=== PATIENT | male | born 1960 | race Caucasian/White ===

== ENCOUNTER → 2016-11-05 | Outpatient (CLI) | payer OTHER | LOC: MW.LAB 08:54 | PROVIDERS: ATTEND Family Medicine | DX: E78.5 Hyperlipidemia, unspecified (principal) | CPT/HCPCS: 36415; 80061 ==

== ENCOUNTER 2017-01-31 11:28 | Inpatient (IN) | payer OTHER ==
[2017-01-31] MEDS ORDERED: Albuterol/Ipratropium 3.0-0.5 MG/3 ML Neb Soln NEB ONE (11:43)
--- NOTE | 2017-01-31 11:55 | EDM.PDOC ---
ED HPI GENERAL MEDICAL PROBLEM - General Chief Complaint: Respiratory Problem Stated Complaint: SHORTNESS OF BREATH Time Seen by Provider: 01/31/17 11:39 - History of Present Illness INITIAL COMMENTS - FREE TEXT/NARRATIVE: HISTORY AND PHYSICAL: History of present illness: Patient 56-year-old male history multiple myeloma who also has had stem cell transplant with chronic shortness of breath who presents with a concern of worsening shortness of breath and peripheral edema he denies fever chills nausea vomiting. Review of systems: As per history of present illness and below otherwise all systems reviewed and negative. Past medical history: As per history of present illness and as reviewed below otherwise noncontributory. Surgical history: As per history of present illness and as reviewed below otherwise noncontributory. Social history: No reported history of drug or alcohol abuse. Family history: As per history of present illness and as reviewed below otherwise noncontributory. Physical exam: HEENT: Atraumatic, normocephalic, pupils reactive, negative for conjunctival pallor or scleral icterus, mucous membranes moist, throat clear, neck supple, nontender, trachea midline. Lungs: Slightly coarse markedly diminished, breath sounds equal bilaterally, chest nontender. Heart: S1S2, regular, negative for clicks, rubs, or JVD. Abdomen: Soft, nondistended, nontender. Negative for masses or hepatosplenomegaly. Negative for costovertebral tenderness. Pelvis: Stable nontender. Genitourinary: Deferred. Rectal: Deferred. Extremities: Atraumatic, negative for cords or calf pain. Neurovascular unremarkable. Neuro: Awake, alert, oriented. Cranial nerves II through XII unremarkable. Cerebellum unremarkable. Motor and sensory unremarkable throughout. Exam nonfocal. Diagnostics: CBC CMP troponin d-dimer PT/INR BMP chest x-ray blood culture 2 lactic acid Therapeutics: IV O2 monitor ipratropium albuterol nebulizer Impression: #1 dyspnea #2 history of chronic lung disease #3 history multiple myeloma #4 history of stem cell transplant Definitive disposition and diagnosis as appropriate pending reevaluation and review of above. - Related Data Allergies Allergy/AdvReac Type Severity Reaction Status Date / Time No Known Allergies Allergy Verified 01/31/17 11:33 Home Meds: Home Meds Acyclovir [Zovirax] 800 mg PO BID 10/08/15 [History] Pomalidomide [Pomalyst] 2 mg PO BEDTIME 10/15/16 [History] Cholecalciferol (Vitamin D3) [Vitamin D3] 5,000 unit PO DAILY 07/01/16 [History] Dexamethasone 40 mg PO TH@2100 07/01/16 [History] Fluticasone/Salmeterol [Advair 250-50 Diskus] 1 inh IH BID 07/01/16 [History] Rosuvastatin Calcium 20 mg PO BEDTIME 07/01/16 [History] Ubidecarenone [Coq-10] 200 mg PO DAILY 07/01/16 [History] Aspirin [Ecotrin] 325 mg PO BEDTIME 07/02/16 [History] Albuterol/Ipratropium [DuoNeb 3.0-0.5 MG/3 ML] 3 ml NEB Q4HRRT PRN #100 ampule 07/04/16 [Rx] Dextromethorphan/guaiFENesin [Robitussin DM] 10 ml PO Q6H PRN #200 ml 07/04/16 [ Rx] Erythromycin Base [Erythromycin 0.5% Ophth Oint] 1 applic OP Q4H #2 tube [Rx] Past Medical History Cardiovascular History: Reports: High Cholesterol Other Respiratory History: "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" Hematologic History: Reports: None Immunologic History: 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 Transplant Oncologic (Cancer) History: Reports: Malignant Melanoma - Past Surgical History Musculoskeletal Surgical History: Reports: Hip Replacement, Other (See Below) Social & Family History - Family History Family Medical History: Noncontributory - Tobacco Use Smoking Status *Q: Never Smoker Years of Tobacco use: 20 Used Tobacco, but Quit: Yes Month Tobacco Last Used: 07/2001 Second Hand Smoke Exposure: No - Caffeine Use Caffeine Use: Reports: Other - Alcohol Use Days Per Week of Alcohol Use: 7 Number of Drinks Per Day: 2 Total Drinks Per Week: 14 - Recreational Drug Use Recreational Drug Use: No ED ROS GENERAL - Review of Systems Review Of Systems: ROS reveals no pertinent complaints other than HPI. ED EXAM, GENERAL - Physical Exam Exam: See Below (See dictation) Course - Vital Signs Last Recorded V/S: Last Vital Signs Temp 37.8 C 02/01/17 04:00 Pulse 82 02/01/17 04:00 Resp 20 02/01/17 04:00 BP 138/55 L 02/01/17 04:00 Pulse Ox 96 02/01/17 04:00 - Orders/Labs/Meds Orders: Active Orders 24 hr Category Date Time Status Cardiac Monitoring [RC] Q8H Care 01/31/17 11:33 Active EKG Documentation Completion [RC] STAT Care 01/31/17 11:33 Active RT Aerosol Therapy [RC] ASDIRECTED Care 01/31/17 11:43 Active Chest 2V [CR] Stat Exams 01/31/17 11:42 Taken Chest PE [Ang Chest] [CT] Stat Exams 01/31/17 12:50 Taken CULTURE BLOOD [BC] Stat Lab 01/31/17 11:50 Received CULTURE BLOOD [BC] Stat Lab 01/31/17 12:46 Received Medication Orders Acyclovir (Zovirax) 800 mg PO BID [facility] Last Admin: 01/31/17 20:02 Dose: 800 mg Albuterol/Ipratropium (Duoneb 3.0-0.5 Mg/3 Ml) 3 ml NEB Q4HRRT PRN PRN Reason: sob/wheezing Enoxaparin Sodium (Lovenox) 40 mg SUBCUT DAILY@1900 [facility] Last Admin: 01/31/17 18:18 Dose: 40 mg Levofloxacin/Dextrose 750 mg/ (Premix) 150 mls @ 100 mls/hr IV Q24H [facility] Piperacillin Sod/Tazobactam (Sod 4.5 gm/ Sodium Chloride) 100 mls @ 100 mls/hr IV Q6H [facility] Last Admin: 02/01/17 05:17 Dose: 100 mls/hr Infusion: 02/01/17 00:53 Dose: 100 mls/hr Admin: 01/31/17 23:53 Dose: 100 mls/hr Infusion: 01/31/17 19:18 Dose: 100 mls/hr Admin: 01/31/17 18:18 Dose: 100 mls/hr Vancomycin HCl 2 gm/ Sodium (Chloride) 500 mls @ 333.333 mls/hr IV Q24H [facility] Ondansetron HCl (Zofran) 4 mg IVPUSH Q4H PRN PRN Reason: Nausea Last Admin: 01/31/17 19:44 Dose: 4 mg Fluticasone/Salmeterol (Advair Diskus 250-50) 1 puff INH BID [facility] Last Admin: 01/31/17 21:55 Dose: 1 puff Sodium Chloride (Saline Flush) 2.5 ml FLUSH ASDIRECTED PRN PRN Reason: Keep Vein Open Vancomycin HCl (Pharmacy To Dose - Vancomycin) 1 dose .XX ASDIRECTED [facility] Labs: Laboratory Tests 01/31/17 01/31/17 01/31/17 Range/Units 11:39 11:39 11:39 WBC 10.01 (4.0-11.0) K/uL RBC 3.55 L (4.50-5.90) M/uL Hgb 10.8 L (13.0-17.0) g/dL Hct 34.6 L (38.0-50.0) % MCV 97.5 (80.0-98.0) fL MCH 30.4 (27.0-32.0) pg MCHC 31.2 (31.0-37.0) g/dL RDW Std Deviation 69.8 H (28.0-62.0) fl RDW Coeff of Christiano 20 H (11.0-15.0) % Plt Count 193 (150-400) K/uL MPV 10.10 (7.40-12.00) fL Add Manual Diff YES Neutrophils % (Manual) 47 L (48.0-80.0) % Lymphocytes % (Manual) 33 (16.0-40.0) % Monocytes % (Manual) 18 H (0.0-15.0) % Eosinophils % (Manual) 2 (0.0-7.0) % Nucleated RBC % 0.2 /100WBC Absolute Seg Neuts 4.7 Lymphocytes # (Manual) 3.3 Monocytes # (Manual) 1.8 Eosinophils # (Manual) 0.2 Nucleated RBCs # 0 K/uL INR 1.03 (0.86-1.11) D-Dimer, Quantitative (0.0-0.52) mg/LFEU Lactate (0.20-2.00) mmol/L Sodium 141 (136-146) mmol/L Potassium 4.2 (3.5-5.1) mmol/L Chloride 109 (98-110) mmol/L Carbon Dioxide 21 (21-31) mmol/L BUN 5 L (6.0-23.0) mg/dL Creatinine 0.8 (0.6-1.5) mg/dL Est Cr Clr Drug Dosing 126.16 mL/min Estimated GFR (MDRD) > 60.0 ml/min Glucose 95 (60-110) mg/dL Calcium 9.4 (8.8-10.8) mg/dL Total Bilirubin 0.8 (0.1-1.5) mg/dL AST 29 (5-40) IU/L ALT 21 (8-54) IU/L Alkaline Phosphatase 76 (40-150) Troponin I (0.0-0.29) NG/ML B-Natriuretic Peptide (<100) PG/ML Total Protein 6.6 (6.0-8.0) g/dL Albumin 3.6 (3.5-5.0) g/dL Globulin 3.0 (2.0-3.5) g/dL Albumin/Globulin Ratio 1.2 L (1.3-2.8) 01/31/17 01/31/17 01/31/17 Range/Units 11:39 11:39 11:39 WBC (4.0-11.0) K/uL RBC (4.50-5.90) M/uL Hgb (13.0-17.0) g/dL Hct (38.0-50.0) % MCV (80.0-98.0) fL MCH (27.0-32.0) pg MCHC (31.0-37.0) g/dL RDW Std Deviation (28.0-62.0) fl RDW Coeff of Christiano (11.0-15.0) % Plt Count (150-400) K/uL MPV (7.40-12.00) fL Add Manual Diff Neutrophils % (Manual) (48.0-80.0) % Lymphocytes % (Manual) (16.0-40.0) % Monocytes % (Manual) (0.0-15.0) % Eosinophils % (Manual) (0.0-7.0) % Nucleated RBC % /100WBC Absolute Seg Neuts Lymphocytes # (Manual) Monocytes # (Manual) Eosinophils # (Manual) Nucleated RBCs # K/uL INR (0.86-1.11) D-Dimer, Quantitative 2.05 H (0.0-0.52) mg/LFEU Lactate (0.20-2.00) mmol/L Sodium (136-146) mmol/L Potassium (3.5-5.1) mmol/L Chloride (98-110) mmol/L Carbon Dioxide (21-31) mmol/L BUN (6.0-23.0) mg/dL Creatinine (0.6-1.5) mg/dL Est Cr Clr Drug Dosing mL/min Estimated GFR (MDRD) ml/min Glucose (60-110) mg/dL Calcium (8.8-10.8) mg/dL Total Bilirubin (0.1-1.5) mg/dL AST (5-40) IU/L ALT (8-54) IU/L Alkaline Phosphatase (40-150) Troponin I < 0.10 (0.0-0.29) NG/ML B-Natriuretic Peptide 88 (<100) PG/ML Total Protein (6.0-8.0) g/dL Albumin (3.5-5.0) g/dL Globulin (2.0-3.5) g/dL Albumin/Globulin Ratio (1.3-2.8) 01/31/17 Range/Units 11:39 WBC (4.0-11.0) K/uL RBC (4.50-5.90) M/uL Hgb (13.0-17.0) g/dL Hct (38.0-50.0) % MCV (80.0-98.0) fL MCH (27.0-32.0) pg MCHC (31.0-37.0) g/dL RDW Std Deviation (28.0-62.0) fl RDW Coeff of Christiano (11.0-15.0) % Plt Count (150-400) K/uL MPV (7.40-12.00) fL Add Manual Diff Neutrophils % (Manual) (48.0-80.0) % Lymphocytes % (Manual) (16.0-40.0) % Monocytes % (Manual) (0.0-15.0) % Eosinophils % (Manual) (0.0-7.0) % Nucleated RBC % /100WBC Absolute Seg Neuts Lymphocytes # (Manual) Monocytes # (Manual) Eosinophils # (Manual) Nucleated RBCs # K/uL INR (0.86-1.11) D-Dimer, Quantitative (0.0-0.52) mg/LFEU Lactate 1.9 (0.20-2.00) mmol/L Sodium (136-146) mmol/L Potassium (3.5-5.1) mmol/L Chloride (98-110) mmol/L Carbon Dioxide (21-31) mmol/L BUN (6.0-23.0) mg/dL Creatinine (0.6-1.5) mg/dL Est Cr Clr Drug Dosing mL/min Estimated GFR (MDRD) ml/min Glucose (60-110) mg/dL Calcium (8.8-10.8) mg/dL Total Bilirubin (0.1-1.5) mg/dL AST (5-40) IU/L ALT (8-54) IU/L Alkaline Phosphatase (40-150) Troponin I (0.0-0.29) NG/ML B-Natriuretic Peptide (<100) PG/ML Total Protein (6.0-8.0) g/dL Albumin (3.5-5.0) g/dL Globulin (2.0-3.5) g/dL Albumin/Globulin Ratio (1.3-2.8) Meds: Medications Generic Name Dose Route Start Last Admin Trade Name Freq PRN Reason Stop Dose Admin Acyclovir 800 mg 01/31/17 21:00 01/31/17 20:02 Zovirax PO 800 mg BID [facility] Administration Albuterol/Ipratropium 3 ml 01/31/17 17:36 Duoneb 3.0-0.5 Mg/3 Ml NEB Q4HRRT PRN sob/wheezing Enoxaparin Sodium 40 mg 01/31/17 19:00 01/31/17 18:18 Lovenox SUBCUT 40 mg DAILY@1900 [facility] Administration Levofloxacin/Dextrose 750 mg/ 150 mls @ 100 mls/hr 02/01/17 16:00 Premix IV Q24H [facility] Piperacillin Sod/Tazobactam 100 mls @ 100 mls/hr 01/31/17 18:00 02/01/17 05: 17 Sod 4.5 gm/ Sodium Chloride IV 100 mls/hr Q6H [facility] Administration Vancomycin HCl 2 gm/ Sodium 500 mls @ 333.333 mls/hr 02/01/17 09:00 Chloride IV Q24H [facility] Ondansetron HCl 4 mg 01/31/17 17:37 01/31/17 19:44 Zofran IVPUSH 4 mg Q4H PRN Administration Nausea Fluticasone/Salmeterol 1 puff 01/31/17 21:00 01/31/17 21:55 Advair Diskus 250-50 INH 1 puff BID [facility] Administration Sodium Chloride 2.5 ml 01/31/17 17:37 Saline Flush FLUSH ASDIRECTED PRN Keep Vein Open Vancomycin HCl 1 dose 01/31/17 17:45 Pharmacy To Dose - Vancomycin .XX ASDIRECTED [facility] Discontinued Medications Generic Name Dose Route Start Last Admin Trade Name Freq PRN Reason Stop Dose Admin Albuterol/Ipratropium 3 ml 01/31/17 11:43 01/31/17 12:07 Duoneb 3.0-0.5 Mg/3 Ml NEB 01/31/17 11:44 3 ml ONETIME ONE Administration Furosemide 40 mg 01/31/17 17:35 01/31/17 18:18 Lasix IVPUSH 01/31/17 17:36 40 mg NOW ONE Administration Levofloxacin/Dextrose 750 mg/ 150 mls @ 100 mls/hr 01/31/17 15:50 01/31/17 16 :19 Premix IV 01/31/17 17:19 100 mls/hr ONETIME ONE Administration Vancomycin HCl 1 gm/ Sodium 250 mls @ 250 mls/hr 01/31/17 15:50 01/31/17 16: 20 Chloride IV 01/31/17 16:49 250 mls/hr ONETIME ONE Administration Levofloxacin/Dextrose Confirm 01/31/17 16:04 01/31/17 16:19 Levaquin In D5w 750 Mg/150 Ml Administered 01/31/17 16:05 Not Given Dose 150 mls @ as directed IV .STK-MED ONE Vancomycin HCl 1 gm/ Sodium 250 mls @ 166 mls/hr 01/31/17 21:00 01/31/17 20: 02 Chloride IV 01/31/17 22:30 166 mls/hr ONETIME ONE Administration Iopamidol 100 ml 01/31/17 13:57 01/31/17 14:18 Isovue Multipack-370 (76%) IVPUSH 01/31/17 13:58 100 ml ONETIME STA Administration Departure - Departure Time of Disposition: 11:45 Disposition: Admitted As Inpatient 68 Condition: Good Clinical Impression: Dyspnea Pneumonia Qualifiers: Pneumonia type: due to unspecified organism Laterality: bilateral - Discharge Information - My Orders Last 24 Hours: My Active Orders 01/31/17 11:33 Cardiac Monitoring [RC] Q8H EKG Documentation Completion [RC] STAT 01/31/17 11:42 Chest 2V [CR] Stat 01/31/17 11:43 RT Aerosol Therapy [RC] ASDIRECTED 01/31/17 11:50 CULTURE BLOOD [BC] Stat 01/31/17 12:46 CULTURE BLOOD [BC] Stat 01/31/17 12:50 Chest PE [Ang Chest] [CT] Stat - Assessment/Plan Last 24 Hours: My Active Orders 01/31/17 11:33 Cardiac Monitoring [RC] Q8H EKG Documentation Completion [RC] STAT 01/31/17 11:42 Chest 2V [CR] Stat 01/31/17 11:43 RT Aerosol Therapy [RC] ASDIRECTED 01/31/17 11:50 CULTURE BLOOD [BC] Stat 01/31/17 12:46 CULTURE BLOOD [BC] Stat 01/31/17 12:50 Chest PE [Ang Chest] [CT] Stat
[2017-01-31 12:15] LABS: CHLORIDE,CL 109 mmol/L (98-110); SODIUM,NA 141 mmol/L (136-146)
[2017-01-31] MEDS ORDERED: Iopamidol 755 MG/ML 500 ML Multipack Bottle IVPUSH STA (13:57)
[2017-01-31] MEDS ORDERED: Levofloxacin/Dextrose 5%-Water 750 MG in Premix Bag 1 BAG IV ONE (15:50)
[2017-01-31] MEDS ORDERED: Levofloxacin/Dextrose 5%-Water 0 ML IV ONE (16:04)
[2017-01-31] MEDS ORDERED: Furosemide 40 MG/4 ML VIAL IVPUSH ONE (17:35)
[2017-01-31] MEDS ORDERED: Albuterol/Ipratropium 3.0-0.5 MG/3 ML Neb Soln NEB PRN (17:36)
[2017-01-31] MEDS ORDERED: Ondansetron 4 MG/2 ML SDV IVPUSH PRN (17:37)
[2017-01-31] MEDS ORDERED: Sodium Chloride 0.9% 2.5 ML Syringe FLUSH PRN (17:37)
--- NOTE | 2017-01-31 17:48 | PCM.HP ---
H&P History of Present Illness - General Date of Service: 01/31/17 Admit Problem/Dx: Admission Diagnosis/Problem Admission Diagnosis/Problem Pneumonia Source of Information: Patient History Limitations: Reports: No Limitations - History of Present Illness Initial Comments - Free Text/Narative: This 56 year old male with pmh of multiple myeloma with radiation to chest tumors, recent stem cell transplant and chemotherapy November 2016, and chronic dyspnea presented to the ED today with concerns of increased dyspnea on exertion with hypoxia noted at home, 73% on RA. He reports a non productive cough, no fevers but did notice some chills at home, but was checking his temp and did not notice any fevers. No chest pain or palpitations, no abdominal pain black or bloody stools and no urinary symptoms. He does report new peripheral edema to bilateral lower legs. He reports this has happened in the past with chemo along with "fluid around my heart" and they switched chemo medications. Prior to stem cell transplant, he had 6 rounds of chemo and did have an ECHO prior to that. Will obtain these records from [place]. He was placed on Bactrim and PCN, but Bactrim was stopped due to facial and trunk rash. In the ED WBC 10,010, Hgb 10.8, D dimer 2.05, Lactate 1.9, Troponin negative. CXR reported, pulmonary mass lesion with associated post-obstructive penumonia, but this could not be total excluded, right hemidiaphragm is elevated suggesting possible component of volume loss. If the previous exams are not available consider evaluation with CT scan of the chest with intravenous contrast. CT angio of chest obtained, mild increase in right hilar/perihilar soft tissue thickening, mild increase in size of right paratracheal soft tissue mass, and new mildly enlarged AP window lymph node. These findings may reflect progression of malignancy. Increased volume loss in the right middle lobe and increased atelectasis/infiltrate extending into the right lower lobe. New patchy infiltrate throughout the left lung, most likely representing pneumonia. New bilateral pleural effusions, right larger than left. Limited evaluation for pulmonary emboli. No definite pulmonary emboli are identified. He will be admitted for pneumonia and new onset pleural effusions and peripheral edema. PCP, Jo Ann Potts LIBRARY INFORMATION TECHNICIAN - Related Data Allergies/Adverse Reactions: Allergies Allergy/AdvReac Type Severity Reaction Status Date / Time No Known Allergies Allergy Verified 01/31/17 11:33 Home Medications: Home Meds Acyclovir [Zovirax] 800 mg PO BID 10/08/15 [History] Pomalidomide [Pomalyst] 2 mg PO BEDTIME 05/15/16 [History] Cholecalciferol (Vitamin D3) [Vitamin D3] 5,000 unit PO DAILY 07/01/16 [History] Dexamethasone 40 mg PO TH@2100 07/01/16 [History] Fluticasone/Salmeterol [Advair 250-50 Diskus] 1 inh IH BID 07/01/16 [History] Rosuvastatin Calcium 20 mg PO BEDTIME 07/01/16 [History] Ubidecarenone [Coq-10] 200 mg PO DAILY 07/01/16 [History] Aspirin [Ecotrin] 325 mg PO BEDTIME 07/02/16 [History] Albuterol/Ipratropium [DuoNeb 3.0-0.5 MG/3 ML] 3 ml NEB Q4HRRT PRN #100 ampule 07/04/16 [Rx] Dextromethorphan/guaiFENesin [Robitussin DM] 10 ml PO Q6H PRN #200 ml 07/04/16 [ Rx] Erythromycin Base [Erythromycin 0.5% Ophth Oint] 1 applic OP Q4H #2 tube [Rx] Past Medical History Cardiovascular History: Reports: Heart Failure, High Cholesterol. 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 Denies: GERD, GI Bleed Genitourinary History: Reports: None. Denies: Chronic Renal Insuffiency Psychiatric History: Reports: None Endocrine/Metabolic History: Reports: Obesity/BMI 30+. Denies: Diabetes, Type II Hematologic History: Reports: None Immunologic History: 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 Transplant Oncologic (Cancer) History: Reports: Malignant Melanoma - Past Surgical History Head Surgeries/Procedures: Reports: None Musculoskeletal Surgical History: Reports: Hip Replacement, Other (See Below) Social & Family History - Family History Family Medical History: Noncontributory - Tobacco Use Smoking Status *Q: Never Smoker Years of Tobacco use: 20 Used Tobacco, but Quit: Yes Month Tobacco Last Used: 07/2001 Second Hand Smoke Exposure: No - Caffeine Use Caffeine Use: Reports: Energy Drinks, Soda - Alcohol Use Days Per Week of Alcohol Use: 7 Number of Drinks Per Day: 2 Total Drinks Per Week: 14 - Recreational Drug Use Recreational Drug Use: No - Living Situation & Occupation Living situation: Reports: H&P Review of Systems - Review of Systems: Review Of Systems: See Below General: Reports: Decreased Appetite. Denies: Fever, Chills, Malaise, Night Sweats HEENT: Reports: No Symptoms. Denies: Ear Pain, Headaches, Sinus Congestion, Vertigo Pulmonary: Reports: Shortness of Breath, Cough. Denies: Pleuritic Chest Pain, Sputum, Hemoptysis Cardiovascular: Reports: Dyspnea on Exertion, Edema. Denies: Chest Pain, Palpitations, Syncope Gastrointestinal: Reports: No Symptoms. Denies: Abdominal Pain, Black Stool, Bloody Stool, Constipation, Diarrhea, Nausea, Vomiting Genitourinary: Reports: No Symptoms. Denies: Dysuria, Frequency, Burning Musculoskeletal: Reports: No Symptoms. Denies: Neck Pain Skin: Reports: Rash (to face and neck, improving since stopping Bactrim) Neurological: Reports: No Symptoms Hematologic/Lymphatic: Reports: No Symptoms Immunologic: Reports: No Symptoms Exam - Exam Exam: See Below - Vital Signs Vital Signs: Last Vital Signs Temp 98.4 F 01/31/17 17:00 Pulse 94 01/31/17 17:00 Resp 18 01/31/17 17:00 BP 142/81 H 01/31/17 17:00 Pulse Ox 93 L 01/31/17 17:00 Weight: 150.8 kg - Exam Quality Assessment: Supplemental Oxygen, DVT Prophylaxis General: Alert, Oriented, Cooperative, Other (no acute distress) HEENT: Conjunctiva Clear, Mucosa Moist & [place], Nares Patent, Pupils Equal Neck: Supple, Trachea Midline, +2 Carotid Pulse wo Bruit Lungs: Normal Respiratory Effort, Decreased Breath Sounds Cardiovascular: Regular Rate, Regular Rhythm, Normal S1, Normal S2. No: Systolic Murmur, Gallop/S3 Abdomen: Normal Bowel Sounds, Soft. No: Distention, Tenderness Back Exam: Normal Inspection, Full Range of Motion, NT Extremities: 3, Normal Inspection, 10 Neuro Extensive - Mental Status: Alert, Oriented x3, Normal Mood/Affect, Normal Cognition Neuro Extensive - Motor, Sensory, Reflexes: CN II-XII Intact Psychiatric: Alert, Normal Affect, Normal Mood - Patient Data Result Diagrams: 02/01/17 04:42 02/01/17 04:42 EKG INTERPRETATION EKG Date: 01/31/17 Rhythm: NSR Rate (Beats/Min): 80 [place]: RAD-Right [place] Deviation P-Wave: Present QRS: Normal ST-T: Normal QT: Normal VA/PQ Interval: prolonger VA interval *Q Meaningful Use (ADM) - VTE *Q VTE Criteria *Q: - VTE Risk Assess *Q Each Risk Factor Represents 1 Point: Age 41 - 59 years, Congestive Heart Failure , Less than 1 Month, Serious Lung Disease Including Pneumonia, Less than 1 Month , Abnormal Pulmonary Function (COPD) Total Score 1 Point Risk Factors: 4 Each Risk Factor Represents 2 Points: None Total Score 2 Point Risk Factors: 0 Each Risk Factor Represents 3 Points: Present Cancer or Chemotherapy Total Score 3 Point Risk Factors: 3 Each Risk Factor Represents 5 Points: None Total Score 5 Point Risk Factors: 0 Venous Thromboembolism Risk Factor Score *Q: 7 - Stroke *Q Stroke Criteria *Q: - AMI *Q AMI Criteria *Q: - Problem List (1) Peripheral edema SNOMED Code(s): 594491984 ICD Code: R60.9 - EDEMA, UNSPECIFIED Status: Acute Current Visit: Yes (2) Pleural effusion SNOMED Code(s): 18673458 ICD Code: J90 - PLEURAL EFFUSION, NOT ELSEWHERE CLASSIFIED Status: Acute Current Visit: Yes (3) Dyspnea on exertion SNOMED Code(s): 63170303 ICD Code: R06.09 - OTHER FORMS OF DYSPNEA Status: Acute Current Visit: Yes (4) Pneumonia SNOMED Code(s): 329416442 ICD Code: J18.9 - PNEUMONIA, UNSPECIFIED ORGANISM Status: Acute Current Visit: Yes Qualifiers: Pneumonia type: due to unspecified organism Laterality: bilateral (5) Hypoxemia SNOMED Code(s): 784061380 ICD Code: R09.02 - HYPOXEMIA Status: Acute Priority: High Current Visit : No (6) Immunosuppression SNOMED Code(s): 75836202 ICD Code: D89.9 - DISORDER INVOLVING THE IMMUNE MECHANISM, UNSPECIFIED Status: Chronic Current Visit: No (7) Multiple myeloma SNOMED Code(s): 327815592 ICD Code: C90.00 - MULTIPLE MYELOMA NOT HAVING ACHIEVED REMISSION Status: Chronic Priority: Medium Current Visit: No Qualifiers: Multiple myeloma remission status: not in remission Qualified Code(s): C90.00 - Multiple myeloma not having achieved remission Problem List Initiated/Reviewed/Updated: Yes Orders Last 24hrs: Active Orders 24 hr Category Date Time Status Height and Weight [RC] DAILY Care 01/31/17 17:37 Ordered Intake and Output Strict [RC] ASDIRECTED Care 01/31/17 17:41 Ordered Intake and Output [RC] QSHIFT Care 01/31/17 17:37 Ordered Oxygen Therapy [RC] PRN Care 01/31/17 17:37 Ordered RT Aerosol Therapy [RC] ASDIRECTED Care 01/31/17 17:37 Ordered Telemetry Monitoring [Cardiac Monitoring] [RC] . Care 01/31/17 17:42 Ordered DIRECTED Up With Assistance [RC] ASDIRECTED Care 01/31/17 17:37 Ordered VTE/DVT Education [RC] PER UNIT ROUTINE Care 01/31/17 17:37 Ordered Vital Signs [RC] Q4H Care 01/31/17 17:37 Ordered Regular Diet [DIET] Diet 01/31/17 Dinner Active Echo 2D wo Cont [US] Routine Exams 01/31/17 17:37 Ordered BASIC METABOLIC PANEL,BMP [CHEM] AM Lab 02/01/17 05:11 Ordered BASIC METABOLIC PANEL,BMP [CHEM] AM Lab 02/02/17 05:11 Ordered BASIC METABOLIC PANEL,BMP [CHEM] AM Lab 02/03/17 05:11 Ordered BASIC METABOLIC PANEL,BMP [CHEM] AM Lab 02/04/17 05:11 Ordered CBC WITH AUTO DIFF [HEME] AM Lab 02/01/17 05:11 Ordered CBC WITH AUTO DIFF [HEME] AM Lab 02/02/17 05:11 Ordered CBC WITH AUTO DIFF [HEME] AM Lab 02/03/17 05:11 Ordered CBC WITH AUTO DIFF [HEME] AM Lab 02/04/17 05:11 Ordered CULTURE SPUTUM + SMEAR [RM] Routine Lab 01/31/17 16:58 Uncollected MAGNESIUM [CHEM] AM Lab 02/01/17 05:11 Ordered MAGNESIUM [CHEM] AM Lab 02/02/17 05:11 Ordered MAGNESIUM [CHEM] AM Lab 02/03/17 05:11 Ordered MAGNESIUM [CHEM] AM Lab 02/04/17 05:11 Ordered UA W/MICROSCOPIC [URIN] Routine Lab 01/31/17 16:58 Uncollected Acyclovir Med 01/31/17 21:00 Ordered 800 mg PO BID Albuterol/Ipratropium [DuoNeb 3.0-0.5 MG/3 ML] Med 01/31/17 17:36 Ordered 3 ml NEB Q4HRRT PRN Enoxaparin [Lovenox] Med 01/31/17 17:45 Ordered 40 mg SUBCUT DAILY Fluticasone/Salmeterol [Advair Diskus 250-50] Med 01/31/17 21:00 Ordered 1 puff INH BID Furosemide [Lasix] Med 01/31/17 17:35 Once 40 mg IVPUSH NOW ONE Levofloxacin/Dextrose 5%-Water [Levaquin in D5W 750 MG/ Med 02/01/17 16:00 Ordered 150 ML] 750 mg Premix Bag 1 bag IV Q24H Ondansetron [Zofran] Med 01/31/17 17:37 Ordered 4 mg IVPUSH Q4H PRN Piperacillin/Tazobactam [Piperacil-Tazobact] 4.5 gm Med 01/31/17 17:45 Ordered Sodium Chloride 0.9% [Normal Saline] 100 ml IV Q6H Sodium Chloride 0.9% [Saline Flush] Med 01/31/17 17:37 Ordered 2.5 ml FLUSH ASDIRECTED PRN Vancomycin Pharmacy to Dose [Pharmacy to Dose - Med 01/31/17 17:45 Ordered Vancomycin] 1 dose .XX ASDIRECTED Saline Lock Insert [OM.PC] Routine Oth 01/31/17 17:37 Ordered Resuscitation Status Routine Resus Stat 01/31/17 17:31 Ordered Medication Orders Albuterol/Ipratropium (Duoneb 3.0-0.5 Mg/3 Ml) 3 ml NEB Q4HRRT PRN PRN Reason: sob/wheezing Enoxaparin Sodium (Lovenox) 40 mg SUBCUT DAILY SIMONA Furosemide (Lasix) 40 mg IVPUSH NOW ONE Stop: 01/31/17 17:36 Levofloxacin/Dextrose 750 mg/ (Premix) 150 mls @ 100 mls/hr IV Q24H SIMONA Piperacillin Sod/Tazobactam (Sod 4.5 gm/ Sodium Chloride) 100 mls @ 100 mls/hr IV Q6H [facility]ONA Non-Formulary Medication (Acyclovir) 800 mg PO BID [facility] Ondansetron HCl (Zofran) 4 mg IVPUSH Q4H PRN PRN Reason: Nausea Fluticasone/Salmeterol (Advair Diskus 250-50) 1 puff INH BID [facility] Sodium Chloride (Saline Flush) 2.5 ml FLUSH ASDIRECTED PRN PRN Reason: Keep Vein Open Vancomycin HCl (Pharmacy To Dose - Vancomycin) 1 dose .XX ASDIRECTED [facility] Assessment/Plan Comment:: This 56 year old male admitted with suspected gram negative pulmonary infection and new peripheral edema and pleural effusions 1. Pneumonia: suspected gram negative infection due to immunosuppression and recent hospital stay for stem cell transplant and chemotherapy. Will continue Vancomycin, Levaquin, Zosyn for now. BC and sputum culture pending. Duonebs and oxygen PRN Will speak with Jo Ann Potts after holiday tomorrow regarding pneumonia and recent stem cell transplant. 2. Pleural effusions/peripheral edema: suspect CHF, will obtain ECHO and give Lasix 40 mg tonight and monitor diuresis. Strict I/O, daily weights. 3. Multiple Myeloma: Monitor. Hold PCN, due to above Zosyn administration. Continue Acyclovir. VTE prophylaxis: Lovenox. Dispo: 2-3 days.
[2017-01-31] MEDS: Enoxaparin 40 MG/0.4 ML Syringe SUBCUT SCH (18:18)
[2017-01-31] MEDS: Piperacillin/Tazobactam 4.5 GM in Sodium Chloride 0.9% 100 ML IV SCH ×2 (18:18→23:53)
[2017-01-31] MEDS: Acyclovir 200 MG Cap PO SCH (20:02)
[2017-01-31] MEDS: Fluticasone/Salmeterol 250-50 MCG Inhalation Powder 14/Diskus INH SCH (21:55)
[2017-02-01] MEDS: Piperacillin/Tazobactam 4.5 GM in Sodium Chloride 0.9% 100 ML IV SCH ×4 (05:17→23:19)
[2017-02-01 05:50] LABS: CHLORIDE,CL 105 mmol/L (98-110); SODIUM,NA 139 mmol/L (136-146)
--- NOTE | 2017-02-01 08:21 | PCM.PN ---
- General Info Date of Service: 02/01/17 Admission Dx/Problem (Free Text): Admission Diagnosis/Problem Admission Diagnosis/Problem Pneumonia, CHF exacerbation Subjective Update: Feeling somewhat better this morning. Dyspnea has lessened, is able to lie flat now. No chest pain or palpitations. Peripheral edema slightly improved. No cough. Functional Status: Reports: pain controlled, tolerating diet - Review of Systems General: Reports: No Symptoms. Denies: Fever HEENT: Reports: no symptoms, ear pain. Denies: sore throat, rhinitis Cardiovascular: Reports: Dyspnea on Exertion (improving), Edema. Denies: Chest Pain Gastrointestinal: Reports: No symptoms. Denies: Abdominal pain, Nausea, Vomiting Genitourinary: Reports: no symptoms. Denies: dysuria, frequency, burning, pain Musculoskeletal: Reports: no symptoms Skin: Reports: no symptoms Psychiatric: Reports: no symptoms - Patient Data Vitals - most recent: Last Vital Signs Temp 97.2 F 02/01/17 07:52 Pulse 78 02/01/17 07:52 Resp 22 H 02/01/17 07:52 BP 111/70 02/01/17 07:52 Pulse Ox 95 02/01/17 07:52 Weight - most recent: 143.5 kg I&O - last 24 hours: Intake & Output 01/31/17 02/01/17 02/01/17 22:59 06:59 14:59 Intake Total 450 1140 Output Total 3870 Balance 450 -2730 Lab Results last 24 hrs: Laboratory Results - last 24 hr 01/31/17 02/01/17 02/01/17 Range/Units 17:50 04:42 04:42 WBC 7.51 (4.0-11.0) K/uL RBC 3.31 L (4.50-5.90) M/uL Hgb 10.0 L (13.0-17.0) g/dL Hct 31.8 L (38.0-50.0) % MCV 96.1 (80.0-98.0) fL MCH 30.2 (27.0-32.0) pg MCHC 31.4 (31.0-37.0) g/dL RDW Std Deviation 68.6 H (28.0-62.0) fl RDW Coeff of Christiano 19 H (11.0-15.0) % Plt Count 188 (150-400) K/uL MPV 10.00 (7.40-12.00) fL Neut % (Auto) 72.0 (48.0-80.0) % Lymph % (Auto) 14.2 L (16.0-40.0) % Cass % (Auto) 12.8 (0.0-15.0) % Eos % (Auto) 0.9 (0.0-7.0) % Baso % (Auto) 0.1 (0.0-1.5) % Neut # (Auto) 5.4 (1.4-5.7) K/uL Lymph # (Auto) 1.1 (0.6-2.4) K/uL Cass # (Auto) 1.0 H (0.0-0.8) K/uL Eos # (Auto) 0.1 (0.0-0.7) K/uL Baso # (Auto) 0.0 (0.0-0.1) K/uL Nucleated RBC % 0.0 /100WBC Nucleated RBCs # 0 K/uL Sodium 139 (136-146) mmol/L Potassium 3.8 (3.5-5.1) mmol/L Chloride 105 (98-110) mmol/L Carbon Dioxide 23 (21-31) mmol/L BUN 6 (6.0-23.0) mg/dL Creatinine 0.9 (0.6-1.5) mg/dL Est Cr Clr Drug Dosing TNP Estimated GFR (MDRD) > 60.0 ml/min Glucose 107 (60-110) mg/dL Calcium 8.2 L (8.8-10.8) mg/dL Magnesium 1.5 (1.5-2.3) mEq/L Urine Color YELLOW Urine Appearance CLEAR Urine pH 7.5 (5.0-8.0) Ur Specific [place] 1.010 (1.001-1.035) Urine Protein NEGATIVE (NEGATIVE) mg/dL Urine Glucose (UA) NEGATIVE (NEGATIVE) mg/dL Urine Ketones NEGATIVE (NEGATIVE) mg/dL Urine Occult Blood NEGATIVE (NEGATIVE) Urine Nitrite NEGATIVE (NEGATIVE) Urine Bilirubin NEGATIVE (NEGATIVE) Urine Urobilinogen 0.2 (<2.0) EU/dL Ur Leukocyte Esterase NEGATIVE (NEGATIVE) Urine RBC 0-1 (0-2/HPF) Urine WBC 0-1 (0-5/HPF) Ur Epithelial Cells RARE (NONE-FEW) Urine Bacteria RARE (NEGATIVE) Med Orders - Current: Current Medications Acyclovir (Zovirax) 800 mg PO BID [facility] Last Admin: 01/31/17 20:02 Dose: 800 mg Albuterol/Ipratropium (Duoneb 3.0-0.5 Mg/3 Ml) 3 ml NEB Q4HRRT PRN PRN Reason: sob/wheezing Enoxaparin Sodium (Lovenox) 40 mg SUBCUT DAILY@1900 [facility] Last Admin: 01/31/17 18:18 Dose: 40 mg Levofloxacin/Dextrose 750 mg/ (Premix) 150 mls @ 100 mls/hr IV Q24H [facility] Piperacillin Sod/Tazobactam (Sod 4.5 gm/ Sodium Chloride) 100 mls @ 100 mls/hr IV Q6H [facility] Last Admin: 02/01/17 05:17 Dose: 100 mls/hr Vancomycin HCl 2 gm/ Sodium (Chloride) 500 mls @ 333.333 mls/hr IV Q12H [facility] Ondansetron HCl (Zofran) 4 mg IVPUSH Q4H PRN PRN Reason: Nausea Last Admin: 01/31/17 19:44 Dose: 4 mg Fluticasone/Salmeterol (Advair Diskus 250-50) 1 puff INH BID [facility] Last Admin: 01/31/17 21:55 Dose: 1 puff Sodium Chloride (Saline Flush) 2.5 ml FLUSH ASDIRECTED PRN PRN Reason: Keep Vein Open Vancomycin HCl (Pharmacy To Dose - Vancomycin) 1 dose .XX ASDIRECTED [facility] Discontinued Medications Albuterol/Ipratropium (Duoneb 3.0-0.5 Mg/3 Ml) 3 ml NEB ONETIME ONE Stop: 01/31/17 11:44 Last Admin: 01/31/17 12:07 Dose: 3 ml Furosemide (Lasix) 40 mg IVPUSH NOW ONE Stop: 01/31/17 17:36 Last Admin: 01/31/17 18:18 Dose: 40 mg Levofloxacin/Dextrose 750 mg/ (Premix) 150 mls @ 100 mls/hr IV ONETIME ONE Stop: 01/31/17 17:19 Last Admin: 01/31/17 16:19 Dose: 100 mls/hr Vancomycin HCl 1 gm/ Sodium (Chloride) 250 mls @ 250 mls/hr IV ONETIME ONE Stop: 01/31/17 16:49 Last Admin: 01/31/17 16:20 Dose: 250 mls/hr Levofloxacin/Dextrose (Levaquin In D5w 750 Mg/150 Ml) Confirm Administered Dose 150 mls @ as directed IV .STK-MED ONE Stop: 01/31/17 16:05 Last Admin: 01/31/17 16:19 Dose: Not Given Vancomycin HCl 1 gm/ Sodium (Chloride) 250 mls @ 166 mls/hr IV ONETIME ONE Stop: 01/31/17 22:30 Last Admin: 01/31/17 20:02 Dose: 166 mls/hr Vancomycin HCl 2 gm/ Sodium (Chloride) 500 mls @ 333.333 mls/hr IV Q24H [facility] Iopamidol (Isovue Multipack-370 (76%)) 100 ml IVPUSH ONETIME STA Stop: 01/31/17 13:58 Last Admin: 01/31/17 14:18 Dose: 100 ml - Exam General: alert, oriented, cooperative, no acute distress Neck: supple Lungs: Clear to auscultation, Normal respiratory effort Cardiovascular: Regular Rate, Regular Rhythm, No Murmurs Abdomen: bowel sounds present, soft, no tenderness, no distension Extremities: normal pulses, no calf tenderness, edema (+2 pitting edema, improved less shiny in appearance. ) Neurological: no new focal deficit Psy/Mental Status: alert, normal affect, normal mood - Problem List & Annotations (1) Peripheral edema SNOMED Code(s): 907060953 Code(s): R60.9 - EDEMA, UNSPECIFIED Status: Acute Current Visit: Yes (2) Pleural effusion SNOMED Code(s): 90899587 Code(s): J90 - PLEURAL EFFUSION, NOT ELSEWHERE CLASSIFIED Status: Acute Current Visit: Yes (3) Dyspnea on exertion SNOMED Code(s): 23420015 Code(s): R06.09 - OTHER FORMS OF DYSPNEA Status: Acute Current Visit: Yes (4) Pneumonia SNOMED Code(s): 649073460 Code(s): J18.9 - PNEUMONIA, UNSPECIFIED ORGANISM Status: Acute Current Visit: Yes Qualifiers: Pneumonia type: due to unspecified organism Laterality: bilateral (5) Hypoxemia SNOMED Code(s): 606557816 Code(s): R09.02 - HYPOXEMIA Status: Acute Priority: High Current Visit : No (6) Immunosuppression SNOMED Code(s): 91794556 Code(s): D89.9 - DISORDER INVOLVING THE IMMUNE MECHANISM, UNSPECIFIED Status: Chronic Current Visit: No (7) Multiple myeloma SNOMED Code(s): 629652675 Code(s): C90.00 - MULTIPLE MYELOMA NOT HAVING ACHIEVED REMISSION Status: Chronic Priority: Medium Current Visit: No Qualifiers: Multiple myeloma remission status: not in remission Qualified Code(s): C90.00 - Multiple myeloma not having achieved remission - Problem List Review Problem List Initiated/Reviewed/Updated: Yes - My Orders Last 24 Hours: My Active Orders 01/31/17 16:58 CULTURE SPUTUM + SMEAR [RM] Routine 01/31/17 17:31 Resuscitation Status Routine 01/31/17 17:36 Albuterol/Ipratropium [DuoNeb 3.0-0.5 MG/3 ML] 3 ml NEB Q4HRRT PRN 01/31/17 17:37 Height and Weight [RC] DAILY Intake and Output [RC] QSHIFT Oxygen Therapy [RC] PRN RT Aerosol Therapy [RC] ASDIRECTED Up With Assistance [RC] ASDIRECTED VTE/DVT Education [RC] PER UNIT ROUTINE Vital Signs [RC] Q4H Ondansetron [Zofran] 4 mg IVPUSH Q4H PRN Sodium Chloride 0.9% [Saline Flush] 2.5 ml FLUSH ASDIRECTED PRN Saline Lock Insert [OM.PC] Routine 01/31/17 17:41 Intake and Output Strict [RC] ASDIRECTED 01/31/17 17:42 Telemetry Monitoring [Cardiac Monitoring] [RC] . DIRECTED 01/31/17 17:45 Vancomycin Pharmacy to Dose [Pharmacy to Dose - Vancomycin] 1 dose .XX ASDIRECTED 01/31/17 18:00 Piperacillin/Tazobactam [Piperacil-Tazobact] 4.5 gm Sodium Chloride 0.9% [ Normal Saline] 100 ml IV Q6H 01/31/17 19:00 Enoxaparin [Lovenox] 40 mg SUBCUT DAILY@1900 01/31/17 21:00 Acyclovir [Zovirax] 800 mg PO BID Fluticasone/Salmeterol [Advair Diskus 250-50] 1 puff INH BID 01/31/17 Dinner Regular Diet [DIET] 02/01/17 08:00 Echo Comp wo Cont [US] Routine 02/01/17 16:00 Levofloxacin/Dextrose 5%-Water [Levaquin in D5W 750 MG/150 ML] 750 mg Premix Bag 1 bag IV Q24H 02/02/17 05:11 BASIC METABOLIC PANEL,BMP [CHEM] AM CBC WITH AUTO DIFF [HEME] AM MAGNESIUM [CHEM] AM 02/03/17 05:11 BASIC METABOLIC PANEL,BMP [CHEM] AM CBC WITH AUTO DIFF [HEME] AM MAGNESIUM [CHEM] AM 02/04/17 05:11 BASIC METABOLIC PANEL,BMP [CHEM] AM CBC WITH AUTO DIFF [HEME] AM MAGNESIUM [CHEM] AM - Plan Plan:: This 56 year old male admitted with suspected gram negative pulmonary infection and new peripheral edema and pleural effusions 1. Pneumonia: Improving, suspected gram negative infection due to immunosuppression and recent hospital stay for stem cell transplant and chemotherapy. Continue Vancomycin, Levaquin, Zosyn. BC and sputum culture pending. Duonebs and oxygen PRN Will speak with Jo Ann Elizabeth and [place] physician Dr. Eriberto Muhammad after holiday tomorrow regarding pneumonia and recent stem cell transplant. 2. Pleural effusions/peripheral edema: suspect CHF, will obtain ECHO and give Lasix 40 mg IV today and monitor diuresis. Good results from Lasix last evening. Strict I/O, daily weights. 3. Multiple Myeloma: Monitor. Hold PCN, due to above Zosyn administration. Continue Acyclovir. VTE prophylaxis: Lovenox. Dispo: 2-3 days.
[2017-02-01] MEDS: Acyclovir 200 MG Cap PO SCH ×2 (08:33→20:52)
[2017-02-01] MEDS: Fluticasone/Salmeterol 250-50 MCG Inhalation Powder 14/Diskus INH SCH ×2 (08:34→21:44)
[2017-02-01] MEDS ORDERED: Vancomycin 2 GM in Sodium Chloride 0.9% 500 ML IV SCH ×4 (09:00)
[2017-02-01] MEDS ORDERED: Furosemide 40 MG/4 ML VIAL IVPUSH ONE (09:27)
[2017-02-01] MEDS: Pantoprazole 40 MG in Sodium Chloride 0.9% 10 ML IVPUSH SCH (10:33)
[2017-02-01] MEDS: Levofloxacin/Dextrose 5%-Water 750 MG in Premix Bag 1 BAG IV SCH (15:15)
[2017-02-01] MEDS: Enoxaparin 40 MG/0.4 ML Syringe SUBCUT SCH (18:10)
[2017-02-01] MEDS: Linezolid 600 MG in Premix Bag 1 BAG IV SCH (18:10)
[2017-02-01] MEDS: LORazepam 0.5 MG Tab PO SCH (20:54)
[2017-02-02] MEDS: Linezolid 600 MG in Premix Bag 1 BAG IV SCH ×2 (05:00→19:13)
[2017-02-02 05:57] LABS: CHLORIDE,CL 105 mmol/L (98-110); SODIUM,NA 139 mmol/L (136-146)
[2017-02-02] MEDS: Piperacillin/Tazobactam 4.5 GM in Sodium Chloride 0.9% 100 ML IV SCH ×3 (06:13→17:58)
[2017-02-02] MEDS: Acyclovir 200 MG Cap PO SCH ×2 (09:05→21:13)
[2017-02-02] MEDS: Pantoprazole 40 MG in Sodium Chloride 0.9% 10 ML IVPUSH SCH (09:06)
[2017-02-02] MEDS: Fluticasone/Salmeterol 250-50 MCG Inhalation Powder 14/Diskus INH SCH ×2 (09:15→20:57)
--- NOTE | 2017-02-02 10:28 | PCM.PN ---
- General Info Date of Service: 02/02/17 Admission Dx/Problem (Free Text): Admission Diagnosis/Problem Admission Diagnosis/Problem Pneumonia, CHF exacerbation Subjective Update: Feeling better this morning, but still having increase dypsnea on exertion. This has improved though. He continues to use Oxygen at 2-2.5 L NC. He denies chest pain or palpitations, edema is improving. No cough or fevers. Functional Status: Reports: pain controlled, tolerating diet, ambulating, urinating - Review of Systems General: Reports: No Symptoms. Denies: Fever Pulmonary: Reports: no symptoms. Denies: cough, sputum Cardiovascular: Reports: Dyspnea on Exertion (improving slowly.), Edema ( improving). Denies: Chest Pain Gastrointestinal: Reports: No symptoms. Denies: Abdominal pain, Nausea, Vomiting Neurological: Reports: No Symptoms Psychiatric: Reports: no symptoms - Patient Data Vitals - most recent: Last Vital Signs Temp 96.5 F 02/02/17 08:00 Pulse 73 02/02/17 08:00 Resp 22 H 02/02/17 08:00 BP 103/60 02/02/17 08:00 Pulse Ox 91 L 02/02/17 08:00 Weight - most recent: 143.5 kg I&O - last 24 hours: Intake & Output 02/01/17 02/02/17 02/02/17 22:59 06:59 14:59 Intake Total 1270 1400 100 Output Total 2220 2550 Balance -950 -1150 100 Lab Results last 24 hrs: Laboratory Results - last 24 hr 02/02/17 02/02/17 Range/Units 04:42 04:42 WBC 5.89 (4.0-11.0) K/uL RBC 3.10 L (4.50-5.90) M/uL Hgb 9.5 L (13.0-17.0) g/dL Hct 29.8 L (38.0-50.0) % MCV 96.1 (80.0-98.0) fL MCH 30.6 (27.0-32.0) pg MCHC 31.9 (31.0-37.0) g/dL RDW Std Deviation 66.2 H (28.0-62.0) fl RDW Coeff of Christiano 19 H (11.0-15.0) % Plt Count 178 (150-400) K/uL MPV 10.00 (7.40-12.00) fL Add Manual Diff YES Neutrophils % (Manual) 55 (48.0-80.0) % Band Neutrophils % 3 % Lymphocytes % (Manual) 20 (16.0-40.0) % Monocytes % (Manual) 15 (0.0-15.0) % Eosinophils % (Manual) 7 (0.0-7.0) % Nucleated RBC % 0.0 /100WBC Absolute Seg Neuts 3.2 Band Neutrophils # 0.2 Lymphocytes # (Manual) 1.2 Monocytes # (Manual) 0.9 Eosinophils # (Manual) 0.4 Nucleated RBCs # 0 K/uL Sodium 139 (136-146) mmol/L Potassium 3.8 (3.5-5.1) mmol/L Chloride 105 (98-110) mmol/L Carbon Dioxide 23 (21-31) mmol/L BUN 8 (6.0-23.0) mg/dL Creatinine 1.0 (0.6-1.5) mg/dL Est Cr Clr Drug Dosing 101.47 mL/min Estimated GFR (MDRD) > 60.0 ml/min Glucose 95 (60-110) mg/dL Calcium 8.4 L (8.8-10.8) mg/dL Magnesium 1.6 (1.5-2.3) mEq/L Med Orders - Current: Current Medications Acyclovir (Zovirax) 800 mg PO BID [facility] Last Admin: 02/02/17 09:05 Dose: 800 mg Albuterol/Ipratropium (Duoneb 3.0-0.5 Mg/3 Ml) 3 ml NEB Q4HRRT PRN PRN Reason: sob/wheezing Enoxaparin Sodium (Lovenox) 40 mg SUBCUT DAILY@1900 [facility] Last Admin: 02/01/17 18:10 Dose: 40 mg Levofloxacin/Dextrose 750 mg/ (Premix) 150 mls @ 100 mls/hr IV Q24H [facility] Last Admin: 02/01/17 15:15 Dose: 100 mls/hr Piperacillin Sod/Tazobactam (Sod 4.5 gm/ Sodium Chloride) 100 mls @ 100 mls/hr IV Q6H [facility] Last Admin: 02/02/17 06:13 Dose: 100 mls/hr Pantoprazole Sodium 40 mg/ (Sodium Chloride) 10 mls @ 300 mls/hr IVPUSH Q24H [facility] Last Admin: 02/02/17 09:06 Dose: 300 mls/hr Linezolid 600 mg/ Premix 300 mls @ 300 mls/hr IV Q12H [facility] Last Admin: 02/02/17 05:00 Dose: 300 mls/hr Lorazepam (Ativan) 0.5 mg PO BEDTIME [facility] Last Admin: 02/01/17 20:54 Dose: 0.5 mg Ondansetron HCl (Zofran) 4 mg IVPUSH Q4H PRN PRN Reason: Nausea Last Admin: 01/31/17 19:44 Dose: 4 mg Fluticasone/Salmeterol (Advair Diskus 250-50) 1 puff INH BID [facility] Last Admin: 02/02/17 09:15 Dose: 1 puff Sodium Chloride (Saline Flush) 2.5 ml FLUSH ASDIRECTED PRN PRN Reason: Keep Vein Open Discontinued Medications Albuterol/Ipratropium (Duoneb 3.0-0.5 Mg/3 Ml) 3 ml NEB ONETIME ONE Stop: 01/31/17 11:44 Last Admin: 01/31/17 12:07 Dose: 3 ml Furosemide (Lasix) 40 mg IVPUSH NOW ONE Stop: 01/31/17 17:36 Last Admin: 01/31/17 18:18 Dose: 40 mg Furosemide (Lasix) 40 mg IVPUSH NOW ONE Stop: 02/01/17 09:28 Last Admin: 02/01/17 10:30 Dose: 40 mg Levofloxacin/Dextrose 750 mg/ (Premix) 150 mls @ 100 mls/hr IV ONETIME ONE Stop: 01/31/17 17:19 Last Admin: 01/31/17 16:19 Dose: 100 mls/hr Vancomycin HCl 1 gm/ Sodium (Chloride) 250 mls @ 250 mls/hr IV ONETIME ONE Stop: 01/31/17 16:49 Last Admin: 01/31/17 16:20 Dose: 250 mls/hr Levofloxacin/Dextrose (Levaquin In D5w 750 Mg/150 Ml) Confirm Administered Dose 150 mls @ as directed IV .STK-MED ONE Stop: 01/31/17 16:05 Last Admin: 01/31/17 16:19 Dose: Not Given Vancomycin HCl 1 gm/ Sodium (Chloride) 250 mls @ 166 mls/hr IV ONETIME ONE Stop: 01/31/17 22:30 Last Admin: 01/31/17 20:02 Dose: 166 mls/hr Vancomycin HCl 2 gm/ Sodium (Chloride) 500 mls @ 333.333 mls/hr IV Q24H [facility] Vancomycin HCl 2 gm/ Sodium (Chloride) 500 mls @ 333.333 mls/hr IV Q12H [facility] Last Admin: 02/01/17 08:59 Dose: 333.333 mls/hr Iopamidol (Isovue Multipack-370 (76%)) 100 ml IVPUSH ONETIME STA Stop: 01/31/17 13:58 Last Admin: 01/31/17 14:18 Dose: 100 ml Vancomycin HCl (Pharmacy To Dose - Vancomycin) 1 dose .XX ASDIRECTED [facility] - Exam Quality Assessment: supplemental oxygen, DVT prophylaxis General: alert, oriented, cooperative, no acute distress Neck: supple Lungs: Normal respiratory effort, Crackles (fine crackle to R lung marsh) Cardiovascular: Regular Rate, Regular Rhythm, No Murmurs Abdomen: bowel sounds present, soft, no tenderness, no distension Extremities: normal pulses, edema (+ 1 pitting edema to bilateral lower legs, improved.) Neurological: no new focal deficit Psy/Mental Status: alert, normal affect, normal mood - Problem List & Annotations (1) Peripheral edema SNOMED Code(s): 509554189 Code(s): R60.9 - EDEMA, UNSPECIFIED Status: Acute Current Visit: Yes (2) Pleural effusion SNOMED Code(s): 59568658 Code(s): J90 - PLEURAL EFFUSION, NOT ELSEWHERE CLASSIFIED Status: Acute Current Visit: Yes (3) Dyspnea on exertion SNOMED Code(s): 89721422 Code(s): R06.09 - OTHER FORMS OF DYSPNEA Status: Acute Current Visit: Yes (4) Pneumonia SNOMED Code(s): 917139883 Code(s): J18.9 - PNEUMONIA, UNSPECIFIED ORGANISM Status: Acute Current Visit: Yes Qualifiers: Pneumonia type: due to unspecified organism Laterality: bilateral (5) Hypoxemia SNOMED Code(s): 683987789 Code(s): R09.02 - HYPOXEMIA Status: Acute Priority: High Current Visit : No (6) Immunosuppression SNOMED Code(s): 80723440 Code(s): D89.9 - DISORDER INVOLVING THE IMMUNE MECHANISM, UNSPECIFIED Status: Chronic Current Visit: No (7) Multiple myeloma SNOMED Code(s): 765623959 Code(s): C90.00 - MULTIPLE MYELOMA NOT HAVING ACHIEVED REMISSION Status: Chronic Priority: Medium Current Visit: No Qualifiers: Multiple myeloma remission status: not in remission Qualified Code(s): C90.00 - Multiple myeloma not having achieved remission - Problem List Review Problem List Initiated/Reviewed/Updated: Yes - My Orders Last 24 Hours: My Active Orders 02/01/17 09:30 Pantoprazole [ProTONIX IV] 40 mg Sodium Chloride 0.9% [Normal Saline] 10 ml IVPUSH Q24H 02/01/17 16:00 Levofloxacin/Dextrose 5%-Water [Levaquin in D5W 750 MG/150 ML] 750 mg Premix Bag 1 bag IV Q24H 02/01/17 18:00 Linezolid [Zyvox] 600 mg Premix Bag 1 bag IV Q12H 02/01/17 21:00 LORazepam [Ativan] 0.5 mg PO BEDTIME 02/03/17 05:11 BASIC METABOLIC PANEL,BMP [CHEM] AM CBC WITH AUTO DIFF [HEME] AM MAGNESIUM [CHEM] AM 02/04/17 05:11 BASIC METABOLIC PANEL,BMP [CHEM] AM CBC WITH AUTO DIFF [HEME] AM MAGNESIUM [CHEM] AM - Plan Plan:: This 56 year old male admitted with suspected gram negative pulmonary infection and new peripheral edema and pleural effusions 1. Pneumonia: Improving, suspected gram negative infection due to immunosuppression and recent hospital stay for stem cell transplant and chemotherapy. Continue Vancomycin, Levaquin, Zosyn. BC negative x 1 day and sputum culture pending. Duonebs and oxygen PRN Will speak with [facility] and [place] physician Dr. Eriberot Grace today. 2. Pleural effusions/peripheral edema: suspect CHF, ECHO pending and Hold Lasix this am, slight hypotension noted. Monitor again this pm. Strict I/O, daily weights. 3. Multiple Myeloma: Monitor. Hold PCN, due to above Zosyn administration. Continue Acyclovir. VTE prophylaxis: Lovenox. Dispo: 2-3 days.
--- NOTE | 2017-02-02 11:09 | CR ---
EXAM DATE: 01/31/17 PATIENT'S AGE: 56 Patient: JOSELUIS ENRIQUEZ Facility: [place], [place] Site . Site : [id number] Study: XRay Chest [id number]/3/2017 12:12:25 PM Ordering Physician: Gayathri Mixon Final Report: INDICATION: Short of breath. Technique: Chest 2 view. IMPRESSION: No prior exams. Opacification in the right perihilar region. This is also posterior in the right lower lobe on the lateral view. A central perihilar pneumonia could be considered. A central pulmonary mass lesion with associated postobstructive pneumonia however cannot be totally excluded. The right hemidiaphragm is elevated suggesting possible component of volume loss. If the previous exams are not available consider evaluation with CT scan of the chest with intravenous contrast. Heart is mildly enlarged. No pleural effusion or pneumothorax. Metallic cervical spine stabilization hardware. Small punctate nodule also present in the left upper lobe projecting over the anterior 3rd rib which is likely calcified. Dictated by Krzysztof Snow MD @ Jan 31 2017 12:22PM (Electronic Signature) Report Signed by Proxy. LUL
--- NOTE | 2017-02-02 13:55 | CT ---
EXAM DATE: 01/31/17 PATIENT'S AGE: 56 Patient: JOSELUIS ENRIQUEZ Facility: [place], [place] Site . Site : 1960 Study: CT Chest Angio -01/31/2017 2:42:55 PM Ordering Physician: Gayathri Mixon Final Report: INDICATION: CHEST PAIN CT CHEST WITH CONTRAST TECHNIQUE: Multidetector CT imaging was performed through the chest following intravenous contrast administration. Coronal and sagittal reconstructions were generated. COMPARISON: 07/01/[address] FINDINGS: Lungs and airways: Mild increase in soft tissue thickening in the right lung hilum and perihilar region. Increased volume loss in the right middle lobe and increased atelectasis or infiltrate extending into the right lower lobe. New patchy consolidation in the left upper lobe, lingula, and left lower lobe. Bilateral lung calcified granulomas, as before, and right hilar lymph node calcifications, unchanged. Pleura and pleural spaces: New bilateral pleural effusions, moderate in size on the right and small on the left. Heart and mediastinum: Normal heart size. No significant pericardial effusion. Mild increase in size of right paraspinous /paratracheal mass measuring 3.6 x 3.3 x 3.9 centimeters compared to 3.6 x 2.9 x 3.5 centimeters previously. 2.4 x 1.0 centimeter lymph node in the AP window on image 186 of series 501, increased in size from before. Vascular structures: Suboptimal opacification of the pulmonary arterial tree. No large or central pulmonary emboli are identified. Smaller pulmonary emboli could go undetected. Normal caliber aorta without obvious dissection. Chest wall and axillae: No mass or axillary lymphadenopathy. Osseous structures: Thoracic spine degenerative changes and lower cervical spine postoperative changes, as before. No acute fractures identified. Upper abdomen: Unremarkable. IMPRESSION: 1. Mild increase in right hilar/perihilar soft tissue thickening, mild increase in size of right paratracheal soft tissue mass, and new mildly enlarged AP window lymph node. These findings may reflect progression of malignancy. 2. Increased volume loss in the right middle lobe and increased atelectasis/ infiltrate extending into the right lower lobe. New patchy infiltrate throughout the left lung, most likely representing pneumonia. 3. New bilateral pleural effusions, right larger than left. 4. Limited evaluation for pulmonary emboli. No definite pulmonary emboli are identified. TOSHIA GIBBS MD [employer] Dictated by Aung Gibbs MD @ 01/31/2017 3:45:31 PM Dictated by: Aung Gibbs MD @ 01/31/2017 15:46:13 (Electronic Signature) Report Signed by Proxy. [facility]
[2017-02-02] MEDS: Levofloxacin/Dextrose 5%-Water 750 MG in Premix Bag 1 BAG IV SCH (16:18)
[2017-02-02] MEDS: Enoxaparin 40 MG/0.4 ML Syringe SUBCUT SCH (18:41)
[2017-02-02] MEDS: LORazepam 0.5 MG Tab PO SCH (21:11)
[2017-02-03] MEDS: Piperacillin/Tazobactam 4.5 GM in Sodium Chloride 0.9% 100 ML IV SCH ×3 (00:02→11:15)
[2017-02-03 05:38] LABS: CHLORIDE,CL 108 mmol/L (98-110); SODIUM,NA 141 mmol/L (136-146)
[2017-02-03] MEDS: Linezolid 600 MG in Premix Bag 1 BAG IV SCH (06:02)
[2017-02-03] MEDS: Acyclovir 200 MG Cap PO SCH (08:35)
[2017-02-03] MEDS: Pantoprazole 40 MG in Sodium Chloride 0.9% 10 ML IVPUSH SCH (10:09)
[2017-02-03] MEDS: Fluticasone/Salmeterol 250-50 MCG Inhalation Powder 14/Diskus INH SCH (10:16)
[2017-02-03 11:13] VITALS: BP 118/60
--- NOTE | 2017-02-03 11:38 | PCM.DCSUM1 ---
Discharge Summary - Hospital Course Brief History: This 56 year old male with pmh of multiple myeloma with radiation to chest tumors, recent stem cell transplant and chemotherapy November 2016 , and chronic dyspnea presented to the ED today with concerns of increased dyspnea on exertion with hypoxia noted at home, 73% on RA. He reports a non productive cough, no fevers but did notice some chills at home, but was checking his temp and did not notice any fevers. No chest pain or palpitations, no abdominal pain black or bloody stools and no urinary symptoms. He does report new peripheral edema to bilateral lower legs. He reports this has happened in the past with chemo along with "fluid around my heart" and they switched chemo medications. Prior to stem cell transplant, he had 6 rounds of chemo and did have an ECHO prior to that. Will obtain these records from [facility]. He was placed on Bactrim and PCN, but Bactrim was stopped due to facial and trunk rash. In the ED WBC 10,010, Hgb 10.8, D dimer 2.05, Lactate 1.9, Troponin negative. CXR reported, pulmonary mass lesion with associated post- obstructive penumonia, but this could not be total excluded, right hemidiaphragm is elevated suggesting possible component of volume loss. If the previous exams are not available consider evaluation with CT scan of the chest with intravenous contrast. CT angio of chest obtained, mild increase in right hilar/perihilar soft tissue thickening, mild increase in size of right paratracheal soft tissue mass, and new mildly enlarged AP window lymph node. These findings may reflect progression of malignancy. Increased volume loss in the right middle lobe and increased atelectasis/infiltrate extending into the right lower lobe. New patchy infiltrate throughout the left lung, most likely representing pneumonia. New bilateral pleural effusions, right larger than left. Limited evaluation for pulmonary emboli. No definite pulmonary emboli are identified. He will be admitted for pneumonia and new onset pleural effusions and peripheral edema. PCP, Jo Ann Potts NP - Discharge Data Discharge Date: 02/03/17 Discharge Disposition: Home, Self-Care 01 Condition: Good - Discharge Diagnosis/Problem(s) (1) Peripheral edema SNOMED Code(s): 310835881 ICD Code: R60.9 - EDEMA, UNSPECIFIED Status: Acute Current Visit: Yes (2) Pleural effusion SNOMED Code(s): 85788299 ICD Code: J90 - PLEURAL EFFUSION, NOT ELSEWHERE CLASSIFIED Status: Acute Current Visit: Yes (3) Dyspnea on exertion SNOMED Code(s): 39147146 ICD Code: R06.09 - OTHER FORMS OF DYSPNEA Status: Acute Current Visit: Yes (4) Pneumonia SNOMED Code(s): 593415922 ICD Code: J18.9 - PNEUMONIA, UNSPECIFIED ORGANISM Status: Acute Current Visit: Yes Qualifiers: Pneumonia type: due to unspecified organism Laterality: bilateral (5) Hypoxemia SNOMED Code(s): 288854659 ICD Code: R09.02 - HYPOXEMIA Status: Acute Priority: High Current Visit : No (6) Immunosuppression SNOMED Code(s): 80214883 ICD Code: D89.9 - DISORDER INVOLVING THE IMMUNE MECHANISM, UNSPECIFIED Status: Chronic Current Visit: No (7) Multiple myeloma SNOMED Code(s): 759668676 ICD Code: C90.00 - MULTIPLE MYELOMA NOT HAVING ACHIEVED REMISSION Status: Chronic Priority: Medium Current Visit: No Qualifiers: Multiple myeloma remission status: not in remission Qualified Code(s): C90.00 - Multiple myeloma not having achieved remission (8) 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 SNOMED Code(s): 835414597, 765690058 ICD Code: J70.1 - CHRONIC AND OTHER PULMONARY MANIFESTATIONS DUE TO RADIATION Status: Acute Current Visit: Yes - Patient Instructions Diet: Regular Diet as Tolerated, Low Sodium Activity: As Tolerated Showering/Bathing: May Shower Notify Provider of: Fever, Increased Pain, Swelling and Redness, Drainage, Nausea and/or Vomiting - Discharge Plan Prescriptions/Med Rec: Levofloxacin [Levaquin] 750 mg PO DAILY #6 tablet Home Medications: Home Meds Acyclovir [Zovirax] 400 mg PO BID 10/08/15 [History] Cholecalciferol (Vitamin D3) [Vitamin D3] 5,000 unit PO DAILY 07/01/16 [History] Fluticasone/Salmeterol [Advair 250-50 Diskus] 1 inh IH BID 07/01/16 [History] Albuterol/Ipratropium [DuoNeb 3.0-0.5 MG/3 ML] 3 ml NEB Q4HRRT PRN #100 ampule 07/04/16 [Rx] Diclofenac Sodium [Voltaren] 50 mg PO BID PRN 02/03/17 [History] Levofloxacin [Levaquin] 750 mg PO DAILY #6 tablet 02/03/17 [Rx] Minocycline [Minocin] 100 mg PO BID 02/03/17 [History] Sildenafil Citrate [Sildenafil] 100 mg PO DAILY PRN 02/03/17 [History] Patient Handouts: Shortness of Breath, [id number], Levofloxacin tablets, Peripheral Edema, Community-Acquired Pneumonia, Adult, [id number] Referrals: Katie Cobb DO [Physician] - 02/11/17 10:45 am Eh Luis MD [Ordering Only Provider] - 02/09/17 11:30 am - Discharge Summary/Plan Comment DC Time >30 min.: No Discharge Summary/Plan Comment: Discharge Diagnoses Hypoxia 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 He also had increase in peripheral edema and dyspnea on exertion. He was given 2 doses of Lasix daily and both improved. ECHO was obtained, LV EF 50-55%, compared to 70% in November. The study here was of poor quality so we were unable to check RV pressures. He has remained febrile and no leukocytosis. Today he is feeling much better, and asking for discharge home. He does continue to have dyspnea, but he reports this is at his baseline, he reports having chronic lung disease from radiation of chest and thyroid tumors. He was given oxygen for home use once before but he stopped using it after 1 week or so and never was rechecked. At home he notes with activity sats decrease to 70-80%. Today sats at rest without oxygen were 92%, with activity and no oxygen sats decreased to 77% and when placed to 3 L NC with activity sats increased to 88%. I will send him home with 3 L NC oxygen with activity at this time. I did attempt to get a hold of Dr. Grace regarding admission, but I have not received a call back. He has close follow up with Dr. Luis next week and then February 17 at [facility]. I will continue his home medications, add Levaquin for 6 more days due to pneumonia. He is to continue follow up as scheduled. He is to return to ED or clinic if concerns should arise. - General Info Date of Service: 02/03/17 Admission Dx/Problem (Free Text: Admission Diagnosis/Problem Admission Diagnosis/Problem Pneumonia, CHF exacerbation Subjective Update: Feeling better this morning, dyspnea has improved to baseline. Asking to be discharge. No fevers chest pain or palpitations. Functional Status: Reports: pain controlled, tolerating diet, ambulating, urinating - Review of Systems General: Reports: No Symptoms. Denies: Fever HEENT: Reports: no symptoms. Denies: dysphasia, headaches, sore throat Pulmonary: Denies: cough, sputum Cardiovascular: Reports: Dyspnea on Exertion (baseline). Denies: Edema Gastrointestinal: Reports: No symptoms. Denies: Abdominal pain, Nausea, Vomiting Musculoskeletal: Reports: no symptoms Skin: Reports: no symptoms Neurological: Reports: No Symptoms Psychiatric: Reports: no symptoms - Patient Data Vitals - Most Recent: Last Vital Signs Temp 97.4 F 02/03/17 11:11 Pulse 71 02/03/17 11:11 Resp 20 02/03/17 11:11 BP 118/60 02/03/17 11:11 Pulse Ox 92 L 02/03/17 11:11 Weight - Most Recent: 146 kg I&O - Last 24 hours: Intake & Output 02/02/17 02/03/17 02/03/17 22:59 06:59 14:59 Intake Total 1840 880 Output Total 800 900 Balance 1040 -20 Lab Results - Last 24 hrs: Laboratory Results - last 24 hr 02/03/17 02/03/17 Range/Units 04:56 04:56 WBC 5.76 (4.0-11.0) K/uL RBC 3.08 L (4.50-5.90) M/uL Hgb 9.3 L (13.0-17.0) g/dL Hct 29.6 L (38.0-50.0) % MCV 96.1 (80.0-98.0) fL MCH 30.2 (27.0-32.0) pg MCHC 31.4 (31.0-37.0) g/dL RDW Std Deviation 65.5 H (28.0-62.0) fl RDW Coeff of Christiano 19 H (11.0-15.0) % Plt Count 179 (150-400) K/uL MPV 9.30 (7.40-12.00) fL Add Manual Diff YES Neutrophils % (Manual) 47 L (48.0-80.0) % Lymphocytes % (Manual) 22 (16.0-40.0) % Atypical Lymphs % [employer] Monocytes % (Manual) 23 H (0.0-15.0) % Eosinophils % (Manual) 8 H (0.0-7.0) % Nucleated RBC % 0.0 /100WBC Absolute Seg Neuts 2.7 Lymphocytes # (Manual) 1.3 Monocytes # (Manual) 1.3 Eosinophils # (Manual) 0.5 Nucleated RBCs # 0 K/uL Sodium 141 (136-146) mmol/L Potassium 3.9 (3.5-5.1) mmol/L Chloride 108 (98-110) mmol/L Carbon Dioxide 23 (21-31) mmol/L BUN 7 (6.0-23.0) mg/dL Creatinine 0.9 (0.6-1.5) mg/dL Est Cr Clr Drug Dosing 112.74 mL/min Estimated GFR (MDRD) > 60.0 ml/min Glucose 96 (60-110) mg/dL Calcium 8.5 L (8.8-10.8) mg/dL Magnesium 1.6 (1.5-2.3) mEq/L MELINDA Results - Last 24 hrs: Microbiology 02/02/17 15:10 Gram Stain - Final Sputum - Expectorated Med Orders - Current: Current Medications Acyclovir (Zovirax) 800 mg PO BID [facility] Last Admin: 02/03/17 08:35 Dose: 800 mg Albuterol/Ipratropium (Duoneb 3.0-0.5 Mg/3 Ml) 3 ml NEB Q4HRRT PRN PRN Reason: sob/wheezing Enoxaparin Sodium (Lovenox) 40 mg SUBCUT DAILY@1900 [facility] Last Admin: 02/02/17 18:41 Dose: 40 mg Levofloxacin/Dextrose 750 mg/ (Premix) 150 mls @ 100 mls/hr IV Q24H [facility] Last Admin: 02/02/17 16:18 Dose: 100 mls/hr Piperacillin Sod/Tazobactam (Sod 4.5 gm/ Sodium Chloride) 100 mls @ 100 mls/hr IV Q6H [facility] Last Admin: 02/03/17 11:15 Dose: 100 mls/hr Pantoprazole Sodium 40 mg/ (Sodium Chloride) 10 mls @ 300 mls/hr IVPUSH Q24H [facility] Last Admin: 02/03/17 10:09 Dose: 300 mls/hr Linezolid 600 mg/ Premix 300 mls @ 300 mls/hr IV Q12H [facility] Last Admin: 02/03/17 06:02 Dose: 300 mls/hr Lorazepam (Ativan) 0.5 mg PO BEDTIME [facility] Last Admin: 02/02/17 21:11 Dose: 0.5 mg Ondansetron HCl (Zofran) 4 mg IVPUSH Q4H PRN PRN Reason: Nausea Last Admin: 01/31/17 19:44 Dose: 4 mg Fluticasone/Salmeterol (Advair Diskus 250-50) 1 puff INH BID [facility] Last Admin: 02/03/17 10:16 Dose: 1 puff Sodium Chloride (Saline Flush) 2.5 ml FLUSH ASDIRECTED PRN PRN Reason: Keep Vein Open Discontinued Medications Albuterol/Ipratropium (Duoneb 3.0-0.5 Mg/3 Ml) 3 ml NEB ONETIME ONE Stop: 01/31/17 11:44 Last Admin: 01/31/17 12:07 Dose: 3 ml Furosemide (Lasix) 40 mg IVPUSH NOW ONE Stop: 01/31/17 17:36 Last Admin: 01/31/17 18:18 Dose: 40 mg Furosemide (Lasix) 40 mg IVPUSH NOW ONE Stop: 02/01/17 09:28 Last Admin: 02/01/17 10:30 Dose: 40 mg Levofloxacin/Dextrose 750 mg/ (Premix) 150 mls @ 100 mls/hr IV ONETIME ONE Stop: 01/31/17 17:19 Last Admin: 01/31/17 16:19 Dose: 100 mls/hr Vancomycin HCl 1 gm/ Sodium (Chloride) 250 mls @ 250 mls/hr IV ONETIME ONE Stop: 01/31/17 16:49 Last Admin: 01/31/17 16:20 Dose: 250 mls/hr Levofloxacin/Dextrose (Levaquin In D5w 750 Mg/150 Ml) Confirm Administered Dose 150 mls @ as directed IV .STK-MED ONE Stop: 01/31/17 16:05 Last Admin: 01/31/17 16:19 Dose: Not Given Vancomycin HCl 1 gm/ Sodium (Chloride) 250 mls @ 166 mls/hr IV ONETIME ONE Stop: 01/31/17 22:30 Last Admin: 01/31/17 20:02 Dose: 166 mls/hr Vancomycin HCl 2 gm/ Sodium (Chloride) 500 mls @ 333.333 mls/hr IV Q24H [facility] Vancomycin HCl 2 gm/ Sodium (Chloride) 500 mls @ 333.333 mls/hr IV Q12H [facility] Last Admin: 02/01/17 08:59 Dose: 333.333 mls/hr Iopamidol (Isovue Multipack-370 (76%)) 100 ml IVPUSH ONETIME STA Stop: 01/31/17 13:58 Last Admin: 01/31/17 14:18 Dose: 100 ml Vancomycin HCl (Pharmacy To Dose - Vancomycin) 1 dose .XX ASDIRECTED [facility] - Exam General: Reports: alert, oriented, cooperative, no acute distress Lungs: Reports: Clear to auscultation, Normal respiratory effort, Wheezing ( scant in lower lung marsh) Cardiovascular: Reports: Regular Rate, Regular Rhythm Extremities: Reports: no edema, normal pulses Neurological: Reports: no new focal deficit Psy/Mental Status: Reports: alert, normal affect, normal mood *Q Meaningful Use (DIS) - VTE *Q VTE Criteria *Q: - Stroke *Q Stroke Criteria *Q: - AMI *Q AMI Criteria *Q:
--- NOTE | 2017-02-07 15:48 | ECHO ---
EXAM DATE: 01/31/17 PATIENT'S AGE: 56 The echocardiogram report can be seen in this patient's EMR (Electronic Medical Record) in the Reports section. The report has also been scanned into PACS. LUL
== END 2017-02-03 15:19 | disposition home or self-care (01) | DRG 194 ==
LOC: MW.ED 11:28 → MW.MS 16:01
PROVIDERS: ADMIT Internal Medicine; ATTEND Internal Medicine
DX: J18.9 Pneumonia, unspecified organism (principal); J90 Pleural effusion, not elsewhere classified; C90.00 Multiple myeloma not having achieved remission; R06.09 Other forms of dyspnea; R09.02 Hypoxemia; D89.9 Disorder involving the immune mechanism, unspecified; R60.9 Edema, unspecified; J70.1 Chronic and other pulmonary manifestations due to radiation; Z79.899 Other long term (current) drug therapy; I50.9 Heart failure, unspecified; E78.00 Pure hypercholesterolemia, unspecified
CPT/HCPCS: 36415; 71020; 71020-26; 71275; 71275-26; 80048; 80053; 81001; 83605; 83735; 83880; 84484; 85025; 85379; 85610; 87040; 87070; 87205; 93005; 93306; 94640; 94664; 96365; 96368; 99283; 99285-25; A9270-GY; C9113; J1650; J1940; J1956; J2020; J2405; J2543; J3370; J7030; J7040; J7050; Q9967

== ENCOUNTER 2017-12-08 10:12 | Inpatient (IN) | payer OTHER ==
[2017-12-08] MEDS ORDERED: Albuterol/Ipratropium 3.0-0.5 MG/3 ML Neb Soln NEB ONE (10:19)
[2017-12-08] MEDS ORDERED: Sodium Chloride 0.9% 10 ML Syringe FLUSH PRN (10:19)
[2017-12-08] MEDS ORDERED: Sodium Chloride 0.9% 2.5 ML Syringe FLUSH PRN (10:19)
[2017-12-08] MEDS ORDERED: Sodium Chloride 0.9% 1,000 ML IV ONE (10:26)
[2017-12-08] MEDS ORDERED: Ondansetron 4 MG/2 ML SDV IVPUSH ONE (10:26)
--- NOTE | 2017-12-08 10:39 | EDM.PDOC ---
ED HPI GENERAL MEDICAL PROBLEM - General Chief Complaint: Respiratory Problem Stated Complaint: LOW OXYGEN Time Seen by Provider: 12/08/17 10:16 Source of Information: Reports: Patient History Limitations: Reports: No Limitations - History of Present Illness INITIAL COMMENTS - FREE TEXT/NARRATIVE: HISTORY AND PHYSICAL: History of present illness: Shouldn't is a 57-year-old male who presents to the emergency room with complaints of dyspnea with fatigue and generally feeling unwell. The symptoms started on Tuesday which she noted he was increasingly short of breath. Over the weekend he states he slept majority of the day and was unaware of the length of time he had been sleeping. Has had a product of cough, intermittent diaphoresis, and nausea. Today he proceeded to the oncology center for radiation treatment who redirected him to come to the emergency room for evaluation. Patient does have multiple myeloma with chest tumors, recently involving the left eye/bony structures and left scalp Patient reports he has had admissions for pneumonia with similar symptoms. 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 He states over the weekend he had forgotten his mask and is concerned that he may have his symptoms on due to exposures to dust and debris that are now circulating due to season change. He denies any fever, chills, chest pain, abdominal pain, vomiting, diarrhea or constipation. He denies any dysuria or blood noted in his stools. His primary care doctor is Dr. Cobb and Oncolgoist is Dr. Mann. Review of systems: As per history of present illness and below otherwise all systems reviewed and negative. Past medical history: As per history of present illness and as reviewed below otherwise noncontributory. Surgical history: As per history of present illness and as reviewed below otherwise noncontributory. Social history: No reported history of drug or alcohol abuse. Family history: As per history of present illness and as reviewed below otherwise noncontributory. Physical exam: General: HEENT: Atraumatic, normocephalic, pupils equal and reactive bilaterally, negative for conjunctival pallor or scleral icterus, mucous membranes moist, throat clear, neck supple, nontender, trachea midline. No drooling or trismus noted. No meningeal signs Lungs: Diminshed bases bilaterally, breath sounds equal bilaterally, chest nontender. Heart: S1S2, regular rate and rhythm without overt murmur Abdomen: Soft, nondistended, nontender. Negative for masses or hepatosplenomegaly. Negative for costovertebral tenderness. Pelvis: Stable nontender. Genitourinary: Deferred. Rectal: Deferred. Skin: Intact, warm, dry. Scaly dry patches noted to left orbital skin up into the left temporal/scalp area. Extremities: Atraumatic, negative for cords or calf pain. Neurovascular unremarkable. Neuro: Awake, alert, oriented. Cranial nerves II through XII unremarkable. Cerebellum unremarkable. Motor and sensory unremarkable throughout. Exam nonfocal. Notes: Patient had a biopsy of a mass on the chest and neck which diagnosed him with myeloma on 02/07/13. He had multiple rounds of radiation therapy and autologous stem cell transplants. Most recently he was noted to have extramedullary tumors to left eye and scalp (10/13/2017). WBC is 6.35, urine shows +4 bacteria, 8-10 WBCs, + nitrates. The signs are stable at this time. The hospitalist is consulted for admission. Dr Loraelin aware of the patient and is agreeable to keeping this patient for in patient admission. Patient is aware and agreeable with admission Diagnostics: CBC, CMP, troponin, EKG, chest x-ray, UA, blood cultures Therapeutics: IV fluid, Zofran, DuoNeb, Azithromycin, Rocephin Impression: UTI Left basilar infiltrate Dyspnea Plan: Inpatient admission to [facility] Definitive disposition and diagnosis as appropriate pending reevaluation and review of above. Duration: Day(s): Location: Reports: Chest - Related Data Allergies Allergy/AdvReac Type Severity Reaction Status Date / Time Sulfa (Sulfonamide Allergy Rash Verified 02/03/17 09:17 Antibiotics) Home Meds: Home Meds Acyclovir [Zovirax] 400 mg PO BID 10/08/15 [History] Cholecalciferol (Vitamin D3) [Vitamin D3] 5,000 unit PO DAILY 07/01/16 [History] Fluticasone/Salmeterol [Advair 250-50 Diskus] 1 inh IH BID 07/01/16 [History] Albuterol/Ipratropium [DuoNeb 3.0-0.5 MG/3 ML] 3 ml NEB Q4HRRT PRN #100 ampule 07/04/16 [Rx] Diclofenac Sodium [Voltaren] 50 mg PO BID PRN 02/03/17 [History] Levofloxacin [Levaquin] 750 mg PO DAILY #6 tablet 02/03/17 [Rx] Minocycline [Minocin] 100 mg PO BID 02/03/17 [History] Sildenafil Citrate [Sildenafil] 100 mg PO DAILY PRN 02/03/17 [History] Past Medical History Cardiovascular History: Reports: Heart Failure, High Cholesterol. 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 Denies: GERD, GI Bleed Genitourinary History: Reports: None. Denies: Chronic Renal Insuffiency Psychiatric History: Reports: None Endocrine/Metabolic History: Reports: Obesity/BMI 30+. Denies: Diabetes, Type II Hematologic History: Reports: None Immunologic History: 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 Transplant Oncologic (Cancer) History: Reports: Malignant Melanoma - Past Surgical History Head Surgeries/Procedures: Reports: None Musculoskeletal Surgical History: Reports: Hip Replacement, Other (See Below) Social & Family History - Family History Family Medical History: Noncontributory - Caffeine Use Caffeine Use: Reports: Energy Drinks, Soda - Living Situation & Occupation Living situation: Reports: ED ROS GENERAL - Review of Systems Review Of Systems: ROS reveals no pertinent complaints other than HPI. ED EXAM, GENERAL - Physical Exam Exam: See Below (See dictation) Course - Vital Signs Last Recorded V/S: Last Vital Signs Temp 96.3 F 12/08/17 10:24 Pulse 112 H 12/08/17 10:24 Resp 16 12/08/17 10:24 BP 128/74 12/08/17 10:24 Pulse Ox 93 L 12/08/17 10:24 - Orders/Labs/Meds Orders: Active Orders 24 hr Category Date Time Status Patient Status [ADT] Stat ADT 12/08/17 11:51 Ordered EKG Documentation Completion [RC] STAT Care 12/08/17 10:19 Active RT Aerosol Therapy [RC] ASDIRECTED Care 12/08/17 10:20 Active CULTURE BLOOD [BC] Stat Lab 12/08/17 10:36 Received CULTURE BLOOD [BC] Stat Lab 12/08/17 11:22 Received CULTURE URINE [RM] Stat Lab 12/08/17 11:44 Ordered UA W/MICROSCOPIC [URIN] Stat Lab 12/08/17 11:18 Ordered Azithromycin [Zithromax] 500 mg Med 12/08/17 11:51 Ordered Sodium Chloride 0.9% [Normal Saline] 500 ml IV ONETIME Sodium Chloride 0.9% [Normal Saline] 1,000 ml Med 12/08/17 10:26 Active IV STAT Sodium Chloride 0.9% [Saline Flush] Med 12/08/17 10:19 Active 10 ml FLUSH ASDIRECTED PRN Sodium Chloride 0.9% [Saline Flush] Med 12/08/17 10:19 Active 2.5 ml FLUSH ASDIRECTED PRN cefTRIAXone [Rocephin in Dextrose,Iso-Osm 1 GM/50 ML] 1 Med 12/08/17 11:51 Ordered gm Premix Bag 1 bag IV ONETIME Blood Culture x2 Reflex Set [OM.PC] Stat Oth 12/08/17 10:40 Ordered Saline Lock Insert [OM.PC] Stat Oth 12/08/17 10:19 Ordered Medication Orders Sodium Chloride (Normal Saline) 1,000 mls @ 250 mls/hr IV STAT ONE Stop: 12/08/17 14:25 Last Admin: 12/08/17 11:09 Dose: 250 mls/hr Sodium Chloride (Saline Flush) 10 ml FLUSH ASDIRECTED PRN PRN Reason: Keep Vein Open Sodium Chloride (Saline Flush) 2.5 ml FLUSH ASDIRECTED PRN PRN Reason: Keep Vein Open Labs: Laboratory Tests 12/08/17 12/08/17 12/08/17 Range/Units 10:36 10:36 11:18 WBC 6.35 (4.0-11.0) K/uL RBC 3.57 L (4.50-5.90) M/uL Hgb 11.1 L (13.0-17.0) g/dL Hct 33.2 L (38.0-50.0) % MCV 93.0 (80.0-98.0) fL MCH 31.1 (27.0-32.0) pg MCHC 33.4 (31.0-37.0) g/dL RDW Std Deviation 55.2 (28.0-62.0) fl RDW Coeff of Christiano 16 H (11.0-15.0) % Plt Count 130 L (150-400) K/uL MPV 9.70 (7.40-12.00) fL Add Manual Diff YES Neutrophils % (Manual) 44 L (48.0-80.0) % Band Neutrophils % 27 % Lymphocytes % (Manual) 15 L (16.0-40.0) % Monocytes % (Manual) 13 (0.0-15.0) % Eosinophils % (Manual) 1 (0.0-7.0) % Nucleated RBC % 0.0 /100WBC Absolute Seg Neuts 2.8 (1.4-5.7) Band Neutrophils # 1.7 Lymphocytes # (Manual) 1.0 (0.6-2.4) Monocytes # (Manual) 0.8 (0.0-0.8) Eosinophils # (Manual) 0.1 (0.0-0.7) Nucleated RBCs # 0 K/uL Sodium 136 (136-148) mmol/L Potassium 3.7 (3.5-5.1) mmol/L Chloride 101 (98-107) mmol/L Carbon Dioxide 25.2 (21.0-32.0) mmol/L BUN 12 (7.0-18.0) mg/dL Creatinine 1.2 (0.8-1.3) mg/dL Est Cr Clr Drug Dosing 83.13 mL/min Estimated GFR (MDRD) > 60.0 ml/min Glucose 146 H (74-106) mg/dL Calcium 8.8 (8.5-10.1) mg/dL Total Bilirubin 1.1 H (0.2-1.0) mg/dL AST 17 (15-37) IU/L ALT 28 (14-63) IU/L Alkaline Phosphatase 75 (46-116) U/L Troponin I < 0.050 (0.000-0.056) ng/mL Total Protein 7.5 (6.4-8.2) g/dL Albumin 2.8 L (3.4-5.0) g/dL Globulin 4.7 H (2.0-3.5) g/dL Albumin/Globulin Ratio 0.6 L (1.3-2.8) Urine Color DARK YELLOW Urine Appearance CLOUDY Urine pH 5.0 (5.0-8.0) Ur Specific [place] >= 1.030 (1.001-1.035) Urine Protein >=300 (NEGATIVE) mg/dL Urine Glucose (UA) NEGATIVE (NEGATIVE) mg/dL Urine Ketones TRACE H (NEGATIVE) mg/dL Urine Occult Blood MODERATE (NEGATIVE) Urine Nitrite POSITIVE H (NEGATIVE) Urine Bilirubin MODERATE H (NEGATIVE) Urine Urobilinogen 1.0 (<2.0) EU/dL Ur Leukocyte Esterase NEGATIVE (NEGATIVE) Urine RBC 0-1 (0-2/HPF) Urine WBC 8-10 (0-5/HPF) Ur Epithelial Cells FEW (NONE-FEW) Urine Bacteria 4+ H (NEGATIVE) Meds: Medications Generic Name Dose Route Start Last Admin Trade Name Freq PRN Reason Stop Dose Admin Sodium Chloride 1,000 mls @ 250 mls/hr 12/08/17 10:26 12/08/17 11:09 Normal Saline IV 12/08/17 14:25 250 mls/hr STAT ONE Administration Sodium Chloride 10 ml 12/08/17 10:19 Saline Flush FLUSH ASDIRECTED PRN Keep Vein Open Sodium Chloride 2.5 ml 12/08/17 10:19 Saline Flush FLUSH ASDIRECTED PRN Keep Vein Open Discontinued Medications Generic Name Dose Route Start Last Admin Trade Name Freq PRN Reason Stop Dose Admin Albuterol/Ipratropium 3 ml 12/08/17 10:19 12/08/17 10:40 Duoneb 3.0-0.5 Mg/3 Ml NEB 12/08/17 10:20 3 ml ONETIME ONE Administration Ondansetron HCl 4 mg 12/08/17 10:26 12/08/17 11:12 Zofran IVPUSH 12/08/17 10:27 4 mg ONETIME ONE Administration Departure - Departure Time of Disposition: 11:56 Disposition: Admitted As Inpatient 68 Clinical Impression: Infiltrate of lung present on imaging of chest UTI (urinary tract infection) Qualifiers: Urinary tract infection type: acute cystitis Hematuria presence: without hematuria Qualified Code(s): N30.00 - Acute cystitis without hematuria Dyspnea Qualifiers: Dyspnea type: shortness of breath Qualified Code(s): R06.02 - Shortness of breath; R06.00 - Dyspnea, unspecified; R06.01 - Orthopnea - Discharge Information Referrals: PCP,None [Primary Care Provider] - Forms: ED Department Discharge - My Orders Last 24 Hours: My Active Orders 12/08/17 10:19 EKG Documentation Completion [RC] STAT Sodium Chloride 0.9% [Saline Flush] 10 ml FLUSH ASDIRECTED PRN Sodium Chloride 0.9% [Saline Flush] 2.5 ml FLUSH ASDIRECTED PRN Saline Lock Insert [OM.PC] Stat 12/08/17 10:20 RT Aerosol Therapy [RC] ASDIRECTED 12/08/17 10:26 Sodium Chloride 0.9% [Normal Saline] 1,000 ml IV STAT 12/08/17 10:36 CULTURE BLOOD [BC] Stat 12/08/17 10:40 Blood Culture x2 Reflex Set [OM.PC] Stat 12/08/17 11:18 UA W/MICROSCOPIC [URIN] Stat 12/08/17 11:22 CULTURE BLOOD [BC] Stat 12/08/17 11:44 CULTURE URINE [RM] Stat 12/08/17 11:51 Patient Status [ADT] Stat Azithromycin [Zithromax] 500 mg Sodium Chloride 0.9% [Normal Saline] 500 ml IV ONETIME cefTRIAXone [Rocephin in Dextrose,Iso-Osm 1 GM/50 ML] 1 gm Premix Bag 1 bag IV ONETIME - Assessment/Plan Last 24 Hours: My Active Orders 12/08/17 10:19 EKG Documentation Completion [RC] STAT Sodium Chloride 0.9% [Saline Flush] 10 ml FLUSH ASDIRECTED PRN Sodium Chloride 0.9% [Saline Flush] 2.5 ml FLUSH ASDIRECTED PRN Saline Lock Insert [OM.PC] Stat 12/08/17 10:20 RT Aerosol Therapy [RC] ASDIRECTED 12/08/17 10:26 Sodium Chloride 0.9% [Normal Saline] 1,000 ml IV STAT 12/08/17 10:36 CULTURE BLOOD [BC] Stat 12/08/17 10:40 Blood Culture x2 Reflex Set [OM.PC] Stat 12/08/17 11:18 UA W/MICROSCOPIC [URIN] Stat 12/08/17 11:22 CULTURE BLOOD [BC] Stat 12/08/17 11:44 CULTURE URINE [RM] Stat 12/08/17 11:51 Patient Status [ADT] Stat Azithromycin [Zithromax] 500 mg Sodium Chloride 0.9% [Normal Saline] 500 ml IV ONETIME cefTRIAXone [Rocephin in Dextrose,Iso-Osm 1 GM/50 ML] 1 gm Premix Bag 1 bag IV ONETIME
[2017-12-08 11:15] LABS: CHLORIDE,CL 101 mmol/L (98-107); SODIUM,NA 136 mmol/L (136-148)
--- NOTE | 2017-12-08 11:39 | CR ---
EXAMINATION: Portable chest radiograph. HISTORY: Shortness of breath. Comparison: 11/02/2017. FINDINGS: The trachea is midline. The heart is normal in size. Mild bilateral hilar fullness, not significantly changed.. Trace left basilar atelectasis and/or early infiltrate. Osseous structures appear unremarkable. Anterior cervical fusion hardware noted. IMPRESSION: Trace left basilar atelectasis and/or early infiltrate.
[2017-12-08] MEDS ORDERED: cefTRIAXone 1 GM in Premix Bag 1 BAG IV ONE (11:51)
[2017-12-08] MEDS ORDERED: Azithromycin 500 MG in Sodium Chloride 0.9% 500 ML IV ONE (11:51)
[2017-12-08] MEDS ORDERED: Ondansetron 4 MG/2 ML SDV IVPUSH PRN (12:03)
[2017-12-08] MEDS ORDERED: Acetaminophen 325 MG Tab PO PRN (12:03)
[2017-12-08] MEDS ORDERED: Azithromycin 500 MG in Sodium Chloride 0.9% 250 ML IV ONE (12:06)
[2017-12-08] MEDS ORDERED: cefTRIAXone 1 GM in Sodium Chloride 0.9% 50 ML IV ONE (12:10)
--- NOTE | 2017-12-08 13:24 | PCM.HP ---
H&P History of Present Illness - General Date of Service: 12/08/17 Admit Problem/Dx: Admission Diagnosis/Problem Admission Diagnosis/Problem Urinary tract infection, acute hypoxic respiratory failure with hypoxia and pneumonia Source of Information: Patient, Old Records History Limitations: Reports: No Limitations - History of Present Illness Initial Comments - Free Text/Narative: This 57 year old male with pmh of multiple myeloma with chest tumors and most recently with progressive osseous lesions in the lateral aspect of the left orbit, left zygomatic arch and left parietal bone presented to the ED today after being seen in Oncology for chemotherapy treatment, but noted to not be feeling well with dyspnea, cough and chills at home. He reports oxygen sats at home were near 88% and feeling more short of breath with ambulation. He reports some sinus congestion congestion with mild productive cough, some R ear fullness and mildly sore throat. No chest pain or palpitations and no peripheral edema. he denies abdominal pain, but reports urgency and some incontinence with urination, reporting "if I have the urge, I better go, otherwise I will have an accident." No flank pain and no penile discharge or dysuria. He also reports some softer stools recently as well. Denies eating lettuce recently or any other questionable foods recently. he reports his appetite has been poor the last couple days and he has been sleeping a lot more. His last chemotherapy was approximately 1 week ago and radiation to L scalp region was 2 weeks ago. He denies tobacco use, alcohol use 3-4 nights a week, 2-3 drinks at a time. No recreational drug use. In the ED WBC 6,350, hgb 11.1, platelets 130, Na 136, K+3.7, Bilirubin 1.1. UA revealed +4 bacteria, WBC 8-10, +nitrites and negative for leukocyte esterase. CXR revealed trace L basilar infiltrate vs atelectasis. He was give Azithromycin in the ED along with IVFs. He will be admitted for UTI, pneumonia with hypoxia and dyspnea. Oncologist Dr Mann. - Related Data Allergies/Adverse Reactions: Allergies Allergy/AdvReac Type Severity Reaction Status Date / Time Sulfa (Sulfonamide Allergy Rash Verified 02/03/17 09:17 Antibiotics) Home Medications: Home Meds Acyclovir [Zovirax] 400 mg PO BID 10/08/15 [History] Cholecalciferol (Vitamin D3) [Vitamin D3] 5,000 unit PO DAILY 07/01/16 [History] Fluticasone/Salmeterol [Advair 250-50 Diskus] 1 inh IH BID 07/01/16 [History] Albuterol/Ipratropium [DuoNeb 3.0-0.5 MG/3 ML] 3 ml NEB Q4HRRT PRN #100 ampule 07/04/16 [Rx] Diclofenac Sodium [Voltaren] 50 mg PO BID PRN 02/03/17 [History] Levofloxacin [Levaquin] 750 mg PO DAILY #6 tablet 02/03/17 [Rx] Minocycline [Minocin] 100 mg PO BID 02/03/17 [History] Sildenafil Citrate [Sildenafil] 100 mg PO DAILY PRN 02/03/17 [History] Past Medical History Cardiovascular History: Reports: Heart Failure (from chemotherapy, this was changed, no reocurrence), High Cholesterol. 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 Denies: GERD, GI Bleed Genitourinary History: Reports: None. Denies: Chronic Renal Insuffiency Psychiatric History: Reports: None Endocrine/Metabolic History: Reports: Obesity/BMI 30+. Denies: Diabetes, Type II Hematologic History: Reports: None Immunologic History: 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 Transplant Oncologic (Cancer) History: Reports: Other (See Below) (Multiple myeloma with chest tumors as well as osseous lesions to L scalp region.) - Past Surgical History Head Surgeries/Procedures: Reports: None Musculoskeletal Surgical History: Reports: Hip Replacement, Other (See Below) Social & Family History - Family History Family Medical History: Noncontributory - Tobacco Use Smoking Status *Q: Current Status Unknown - Caffeine Use Caffeine Use: Reports: Energy Drinks, Soda - Alcohol Use Alcohol Use History: Yes Days Per Week of Alcohol Use: 4 Number of Drinks Per Day: 3 Total Drinks Per Week: 12 - Recreational Drug Use Recreational Drug Use: No - Living Situation & Occupation Living situation: Reports: Occupation: Employed H&P Review of Systems - Review of Systems: Review Of Systems: See Below General: Reports: Chills, Malaise, Weakness, Fatigue, Diaphoresis, Decreased Appetite HEENT: Reports: Ear Pain (fullness to R ear), Sinus Congestion, Sore Throat. Denies: Headaches, Hearing Changes, Visual Changes Pulmonary: Reports: Shortness of Breath, Cough, Sputum (small amount, white to clear) Cardiovascular: Reports: No Symptoms. Denies: Chest Pain, Palpitations, Orthopnea, Edema Gastrointestinal: Reports: Diarrhea, Decreased Appetite, Flatus, Nausea. Denies : Abdominal Pain, Black Stool, Bloody Stool, Vomiting Genitourinary: Reports: Dysuria, Frequency, Urgency, Incontinence. Denies: Hematuria, Discharge, Retention, Flank Pain Musculoskeletal: Reports: No Symptoms. Denies: Neck Pain Skin: Reports: No Symptoms Psychiatric: Reports: No Symptoms Neurological: Reports: No Symptoms Hematologic/Lymphatic: Reports: No Symptoms Immunologic: Reports: No Symptoms Exam - Exam Exam: See Below - Vital Signs Vital Signs: Last Vital Signs Temp 96.5 F 12/08/17 12:11 Pulse 81 12/08/17 12:11 Resp 20 12/08/17 12:11 BP 133/70 12/08/17 12:11 Pulse Ox 92 L 12/08/17 12:11 Weight: 154.221 kg - Exam Quality Assessment: Supplemental Oxygen, DVT Prophylaxis General: Alert, Oriented, Cooperative, Other (diaphoresis noted) HEENT: Conjunctiva Clear, EACs Clear, Nares Patent, Pupils Equal, Pupils Reactive, TMs Clear. No: Mucosa Moist & [place], Posterior Pharynx Clear (scant erythema noted) Neck: Supple, Trachea Midline, Full Range of Motion. No: Lymphadenopathy Lungs: Decreased Breath Sounds (L basilar) Cardiovascular: Regular Rate, Regular Rhythm, Normal S1, Normal S2. No: Tachycardia, Systolic Murmur GI/Abdominal Exam: Normal Bowel Sounds, Soft, Non-Tender, No Organomegaly, No Distention, No Abnormal Bruit, No Mass, Pelvis Stable Back Exam: Normal Inspection, Full Range of Motion. No: CVA Tenderness (L), CVA Tenderness (R) Extremities: Normal Inspection, Normal Range of Motion, Non-Tender, No Pedal Edema, Normal Capillary Refill Skin: Dry (dry patches noted to L scalp where he has obtained radiation) Neurological: Cranial Nerves Intact Neuro Extensive - Mental Status: Alert, Oriented x3, Normal Mood/Affect, Normal Cognition Neuro Extensive - Motor, Sensory, Reflexes: CN II-XII Intact, Normal Gait Psychiatric: Alert, Normal Affect, Normal Mood - Patient Data Lab Results Last 24 hrs: Laboratory Results - last 24 hr 12/08/17 12/08/17 12/08/17 Range/Units 10:36 10:36 11:18 WBC 6.35 (4.0-11.0) K/uL RBC 3.57 L (4.50-5.90) M/uL Hgb 11.1 L (13.0-17.0) g/dL Hct 33.2 L (38.0-50.0) % MCV 93.0 (80.0-98.0) fL MCH 31.1 (27.0-32.0) pg MCHC 33.4 (31.0-37.0) g/dL RDW Std Deviation 55.2 (28.0-62.0) fl RDW Coeff of Christiano 16 H (11.0-15.0) % Plt Count 130 L (150-400) K/uL MPV 9.70 (7.40-12.00) fL Add Manual Diff YES Neutrophils % (Manual) 44 L (48.0-80.0) % Band Neutrophils % 27 % Lymphocytes % (Manual) 15 L (16.0-40.0) % Monocytes % (Manual) 13 (0.0-15.0) % Eosinophils % (Manual) 1 (0.0-7.0) % Nucleated RBC % 0.0 /100WBC Absolute Seg Neuts 2.8 (1.4-5.7) Band Neutrophils # 1.7 Lymphocytes # (Manual) 1.0 (0.6-2.4) Monocytes # (Manual) 0.8 (0.0-0.8) Eosinophils # (Manual) 0.1 (0.0-0.7) Nucleated RBCs # 0 K/uL Sodium 136 (136-148) mmol/L Potassium 3.7 (3.5-5.1) mmol/L Chloride 101 (98-107) mmol/L Carbon Dioxide 25.2 (21.0-32.0) mmol/L BUN 12 (7.0-18.0) mg/dL Creatinine 1.2 (0.8-1.3) mg/dL Est Cr Clr Drug Dosing 83.13 mL/min Estimated GFR (MDRD) > 60.0 ml/min Glucose 146 H (74-106) mg/dL Calcium 8.8 (8.5-10.1) mg/dL Total Bilirubin 1.1 H (0.2-1.0) mg/dL AST 17 (15-37) IU/L ALT 28 (14-63) IU/L Alkaline Phosphatase 75 (46-116) U/L Troponin I < 0.050 (0.000-0.056) ng/mL Total Protein 7.5 (6.4-8.2) g/dL Albumin 2.8 L (3.4-5.0) g/dL Globulin 4.7 H (2.0-3.5) g/dL Albumin/Globulin Ratio 0.6 L (1.3-2.8) Urine Color DARK YELLOW Urine Appearance CLOUDY Urine pH 5.0 (5.0-8.0) Ur Specific [place] >= 1.030 (1.001-1.035) Urine Protein >=300 (NEGATIVE) mg/dL Urine Glucose (UA) NEGATIVE (NEGATIVE) mg/dL Urine Ketones TRACE H (NEGATIVE) mg/dL Urine Occult Blood MODERATE (NEGATIVE) Urine Nitrite POSITIVE H (NEGATIVE) Urine Bilirubin MODERATE H (NEGATIVE) Urine Urobilinogen 1.0 (<2.0) EU/dL Ur Leukocyte Esterase NEGATIVE (NEGATIVE) Urine RBC 0-1 (0-2/HPF) Urine WBC 8-10 (0-5/HPF) Ur Epithelial Cells FEW (NONE-FEW) Urine Bacteria 4+ H (NEGATIVE) Result Diagrams: 12/08/17 10:36 12/08/17 10:36 *Q Meaningful Use (ADM) - VTE Risk Assess *Q Each Risk Factor Represents 1 Point: Age 41 - 59 years, Serious lung disease including pneumonia Total Score 1 Point Risk Factors: 2 Each Risk Factor Represents 2 Points: Malignancy (present or previous) Total Score 2 Point Risk Factors: 2 Each Risk Factor Represents 3 Points: None Total Score 3 Point Risk Factors: 0 Each Risk Factor Represents 5 Points: None Total Score 5 Point Risk Factors: 0 Venous Thromboembolism Risk Factor Score *Q: 4 - Problem List (1) Gram-negative infection SNOMED Code(s): 436123451 ICD Code: A49.9 - BACTERIAL INFECTION, UNSPECIFIED Status: Suspected Current Visit: Yes (2) Pneumonia SNOMED Code(s): 469843093 ICD Code: J18.9 - PNEUMONIA, UNSPECIFIED ORGANISM Status: Acute Current Visit: No Qualifiers: Pneumonia type: due to unspecified organism Laterality: left Lung location: lower lobe of lung Qualified Code(s): J18.1 - Lobar pneumonia, unspecified organism (3) Acute and chronic respiratory failure with hypoxia SNOMED Code(s): 62610918, 584346179 ICD Code: J96.21 - ACUTE AND CHRONIC RESPIRATORY FAILURE WITH HYPOXIA Status: Acute Current Visit: Yes (4) UTI (urinary tract infection) SNOMED Code(s): 04680424 ICD Code: N39.0 - URINARY TRACT INFECTION, SITE NOT SPECIFIED Status: Acute Current Visit: Yes Qualifiers: Urinary tract infection type: acute cystitis Hematuria presence: without hematuria Qualified Code(s): N30.00 - Acute cystitis without hematuria (5) Dyspnea SNOMED Code(s): 558749996 ICD Code: R06.00 - DYSPNEA, UNSPECIFIED Status: Acute Current Visit: Yes Qualifiers: Dyspnea type: shortness of breath Qualified Code(s): R06.02 - Shortness of breath; R06.00 - Dyspnea, unspecified; R06.01 - Orthopnea (6) 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 SNOMED Code(s): 308553939, 324579751 ICD Code: J70.1 - CHRONIC AND OTHER PULMONARY MANIFESTATIONS DUE TO RADIATION Status: Chronic Current Visit: No (7) Immunosuppression SNOMED Code(s): 66040160 ICD Code: D89.9 - DISORDER INVOLVING THE IMMUNE MECHANISM, UNSPECIFIED Status: Chronic Current Visit: No (8) Multiple myeloma SNOMED Code(s): 505455135 ICD Code: C90.00 - MULTIPLE MYELOMA NOT HAVING ACHIEVED REMISSION Status: Chronic Priority: Medium Current Visit: No Qualifiers: Multiple myeloma remission status: not in remission Qualified Code(s): C90.00 - Multiple myeloma not having achieved remission Problem List Initiated/Reviewed/Updated: Yes Orders Last 24hrs: Active Orders 24 hr Category Date Time Status Patient Status [ADT] Stat ADT 12/08/17 11:51 Active EKG Documentation Completion [RC] STAT Care 12/08/17 10:19 Active Oxygen Therapy [RC] PRN Care 12/08/17 12:07 Active RT Aerosol Therapy [RC] ASDIRECTED Care 12/08/17 10:20 Active VTE/DVT Education [RC] PER UNIT ROUTINE Care 12/08/17 12:07 Active Vital Signs [RC] Q4H Care 12/08/17 12:07 Active Regular Diet [DIET] Diet 12/08/17 Lunch Active BASIC METABOLIC PANEL,BMP [CHEM] AM Lab 12/09/17 05:11 Ordered BASIC METABOLIC PANEL,BMP [CHEM] AM Lab 12/10/17 05:11 Ordered CBC WITH AUTO DIFF [HEME] AM Lab 12/09/17 05:11 Ordered CBC WITH AUTO DIFF [HEME] AM Lab 12/10/17 05:11 Ordered CDIFF TOX A+B [OP] Routine Lab 12/08/17 13:06 Ordered CULTURE BLOOD [BC] Stat Lab 12/08/17 10:36 Received CULTURE BLOOD [BC] Stat Lab 12/08/17 11:22 Received CULTURE SPUTUM + SMEAR [RM] Routine Lab 12/08/17 12:03 Ordered CULTURE STOOL + CAMPY+SHIGATOX [RM] Routine Lab 12/08/17 13:06 Ordered CULTURE URINE [RM] Stat Lab 12/08/17 11:00 Ordered INFLUENZA A+B AG SCREEN [RM] Routine Lab 12/08/17 13:06 Ordered MAGNESIUM [CHEM] AM Lab 12/09/17 05:11 Ordered MAGNESIUM [CHEM] AM Lab 12/10/17 05:11 Ordered UA W/MICROSCOPIC [URIN] Stat Lab 12/08/17 11:18 Ordered WBC, STOOL [OP] Routine Lab 12/08/17 13:06 Ordered Acetaminophen [Tylenol] Med 12/08/17 12:03 Active 650 mg PO Q4H PRN Enoxaparin [Lovenox] Med 12/08/17 12:15 Active 40 mg SUBCUT Q24H Lactated Ringers [Ringers, Lactated] 1,000 ml Med 12/08/17 12:15 Active IV ASDIRECTED Levofloxacin/Dextrose 5%-Water [Levaquin in D5W 750 MG/ Med 12/08/17 12:15 Active 150 ML] 750 mg Premix Bag 1 bag IV Q24H Ondansetron [Zofran] Med 12/08/17 12:03 Active 4 mg IVPUSH Q4H PRN Sodium Chloride 0.9% [Normal Saline] 1,000 ml Med 12/08/17 10:26 Active IV STAT Sodium Chloride 0.9% [Saline Flush] Med 12/08/17 10:19 Active 10 ml FLUSH ASDIRECTED PRN Sodium Chloride 0.9% [Saline Flush] Med 12/08/17 10:19 Active 2.5 ml FLUSH ASDIRECTED PRN Blood Culture x2 Reflex Set [OM.PC] Stat Oth 12/08/17 10:40 Ordered Saline Lock Insert [OM.PC] Stat Oth 12/08/17 10:19 Ordered Resuscitation Status Routine Resus Stat 12/08/17 12:03 Ordered Medication Orders Acetaminophen (Tylenol) 650 mg PO Q4H PRN PRN Reason: Pain (mild 1-3) Enoxaparin Sodium (Lovenox) 40 mg SUBCUT Q24H SIMONA Sodium Chloride (Normal Saline) 1,000 mls @ 250 mls/hr IV STAT ONE Stop: 12/08/17 14:25 Last Admin: 12/08/17 11:09 Dose: 250 mls/hr Lactated Ringer's (Ringers, Lactated) 1,000 mls @ 125 mls/hr IV ASDIRECTED SIMONA Levofloxacin/Dextrose 750 mg/ (Premix) 150 mls @ 100 mls/hr IV Q24H SIMONA Ondansetron HCl (Zofran) 4 mg IVPUSH Q4H PRN PRN Reason: Nausea Sodium Chloride (Saline Flush) 10 ml FLUSH ASDIRECTED PRN PRN Reason: Keep Vein Open Sodium Chloride (Saline Flush) 2.5 ml FLUSH ASDIRECTED PRN PRN Reason: Keep Vein Open Assessment/Plan Comment:: This 57 year old male admitted with UTI acute respiratory failure with hypoxia and pneumonia. 1. UTI: UC pending. Will treat with Levaquin. No flank pain or lower abdominal pain. 2. Pneumonia: Will treat with Levaquin as well as Zosyn due to immunocompromised state and cover for probable gram negative pneumonia. BC and sputum culture pending. Will check or influenza as well. Duonebs PRN and oxygen as well. 3. Dehydration: Likely secondary to both of above and poor appetite. Will resuscitate with IVFs, LR 125 overnight and monitor in am. 4. Multiple myeloma: Received chemotherapy last week, was scheduled for it today but canceled due to illness upon arrival to Oncology unit this morning. Continue Acyclovir. VTE prophylaxis: Lovenox. Dispo: 2-3 days pending improvement.
[2017-12-08] MEDS ORDERED: Albuterol/Ipratropium 3.0-0.5 MG/3 ML Neb Soln NEB PRN (13:35)
[2017-12-08] MEDS: Enoxaparin 40 MG/0.4 ML Syringe SUBCUT SCH (14:11)
[2017-12-08] MEDS: Levofloxacin/Dextrose 5%-Water 750 MG in Premix Bag 1 BAG IV SCH (14:11)
[2017-12-08] MEDS: Piperacillin/Tazobactam 4.5 GM in Sodium Chloride 0.9% 100 ML IV SCH ×3 (15:56→23:13)
[2017-12-08] MEDS: Lactated Ringers 1,000 ML IV SCH (18:00)
[2017-12-09] MEDS: Lactated Ringers 1,000 ML IV SCH (04:14)
[2017-12-09] MEDS: Piperacillin/Tazobactam 4.5 GM in Sodium Chloride 0.9% 100 ML IV SCH ×4 (04:17→22:16)
[2017-12-09 05:46] LABS: CHLORIDE,CL 105 mmol/L (98-107); SODIUM,NA 139 mmol/L (136-148)
--- NOTE | 2017-12-09 08:01 | PCM.PN ---
- General Info Date of Service: 12/09/17 Admission Dx/Problem (Free Text): Admission Diagnosis/Problem Admission Diagnosis/Problem Urinary tract infection, acute hypoxic respiratory failure with hypoxia and pneumonia Subjective Update: Feeling a little better today. Cough is more productive today, sample pending. No chest pain. Does have dyspnea with ambulation, but this is also improving. No other concerns currently. No diarrhea since admission Functional Status: Reports: Pain Controlled, Tolerating Diet, Ambulating, Urinating - Review of Systems General: Reports: Malaise. Denies: Fever HEENT: Reports: Sore Throat. Denies: Glasses, Sinus Congestion, Visual Changes Pulmonary: Reports: Shortness of Breath (with ambulation and intermittently.), Cough, Sputum. Denies: Hemoptysis Cardiovascular: Denies: Chest Pain Gastrointestinal: Reports: No Symptoms. Denies: Abdominal Pain, Nausea, Vomiting Genitourinary: Reports: No Symptoms. Denies: Dysuria, Frequency, Burning Musculoskeletal: Reports: No Symptoms Neurological: Reports: No Symptoms Psychiatric: Reports: No Symptoms - Patient Data Vitals - Most Recent: Last Vital Signs Temp 98.6 F 12/09/17 04:00 Pulse 66 12/09/17 04:00 Resp 18 12/09/17 04:00 BP 126/58 L 12/09/17 04:00 Pulse Ox 97 12/09/17 04:00 Weight - Most Recent: 154.221 kg I&O - Last 24 Hours: Intake & Output 12/08/17 12/09/17 12/09/17 22:59 06:59 14:59 Intake Total 600 1299 Output Total 600 1400 Balance 0 -101 Lab Results Last 24 Hours: Laboratory Results - last 24 hr 12/08/17 12/08/17 12/08/17 Range/Units 10:36 10:36 11:18 WBC 6.35 (4.0-11.0) K/uL RBC 3.57 L (4.50-5.90) M/uL Hgb 11.1 L (13.0-17.0) g/dL Hct 33.2 L (38.0-50.0) % MCV 93.0 (80.0-98.0) fL MCH 31.1 (27.0-32.0) pg MCHC 33.4 (31.0-37.0) g/dL RDW Std Deviation 55.2 (28.0-62.0) fl RDW Coeff of Christiano 16 H (11.0-15.0) % Plt Count 130 L (150-400) K/uL MPV 9.70 (7.40-12.00) fL Add Manual Diff YES Neutrophils % (Manual) 44 L (48.0-80.0) % Band Neutrophils % 27 % Lymphocytes % (Manual) 15 L (16.0-40.0) % Monocytes % (Manual) 13 (0.0-15.0) % Eosinophils % (Manual) 1 (0.0-7.0) % Nucleated RBC % 0.0 /100WBC Absolute Seg Neuts 2.8 (1.4-5.7) Band Neutrophils # 1.7 Lymphocytes # (Manual) 1.0 (0.6-2.4) Monocytes # (Manual) 0.8 (0.0-0.8) Eosinophils # (Manual) 0.1 (0.0-0.7) Nucleated RBCs # 0 K/uL Sodium 136 (136-148) mmol/L Potassium 3.7 (3.5-5.1) mmol/L Chloride 101 (98-107) mmol/L Carbon Dioxide 25.2 (21.0-32.0) mmol/L BUN 12 (7.0-18.0) mg/dL Creatinine 1.2 (0.8-1.3) mg/dL Est Cr Clr Drug Dosing 83.13 mL/min Estimated GFR (MDRD) > 60.0 ml/min Glucose 146 H (74-106) mg/dL Calcium 8.8 (8.5-10.1) mg/dL Magnesium (1.5-2.0) mg/dL Total Bilirubin 1.1 H (0.2-1.0) mg/dL AST 17 (15-37) IU/L ALT 28 (14-63) IU/L Alkaline Phosphatase 75 (46-116) U/L Troponin I < 0.050 (0.000-0.056) ng/mL Total Protein 7.5 (6.4-8.2) g/dL Albumin 2.8 L (3.4-5.0) g/dL Globulin 4.7 H (2.0-3.5) g/dL Albumin/Globulin Ratio 0.6 L (1.3-2.8) Urine Color DARK YELLOW Urine Appearance CLOUDY Urine pH 5.0 (5.0-8.0) Ur Specific [place] [address] [place] >= 1.030 (1.001-1.035) Urine Protein >=300 (NEGATIVE) mg/dL Urine Glucose (UA) NEGATIVE (NEGATIVE) mg/dL Urine Ketones TRACE H (NEGATIVE) mg/dL Urine Occult Blood MODERATE (NEGATIVE) Urine Nitrite POSITIVE H (NEGATIVE) Urine Bilirubin MODERATE H (NEGATIVE) Urine Urobilinogen 1.0 (<2.0) EU/dL Ur Leukocyte Esterase NEGATIVE (NEGATIVE) Urine RBC 0-1 (0-2/HPF) Urine WBC 8-10 (0-5/HPF) Ur Epithelial Cells FEW (NONE-FEW) Urine Bacteria 4+ H (NEGATIVE) 12/09/17 12/09/17 Range/Units 05:25 05:25 WBC 5.14 (4.0-11.0) K/uL RBC 3.22 L (4.50-5.90) M/uL Hgb 10.0 L (13.0-17.0) g/dL Hct 30.0 L (38.0-50.0) % MCV 93.2 (80.0-98.0) fL MCH 31.1 (27.0-32.0) pg MCHC 33.3 (31.0-37.0) g/dL RDW Std Deviation 53.8 (28.0-62.0) fl RDW Coeff of Christiano 16 H (11.0-15.0) % Plt Count 125 L (150-400) K/uL MPV 10.10 (7.40-12.00) fL Add Manual Diff YES Neutrophils % (Manual) 59 (48.0-80.0) % Band Neutrophils % 18 % Lymphocytes % (Manual) 5 L (16.0-40.0) % Monocytes % (Manual) 18 H (0.0-15.0) % Eosinophils % (Manual) (0.0-7.0) % Nucleated RBC % 0.0 /100WBC Absolute Seg Neuts 3.0 (1.4-5.7) Band Neutrophils # 0.9 Lymphocytes # (Manual) 0.3 L (0.6-2.4) Monocytes # (Manual) 0.9 H (0.0-0.8) Eosinophils # (Manual) (0.0-0.7) Nucleated RBCs # 0 K/uL Sodium 139 (136-148) mmol/L Potassium 4.1 (3.5-5.1) mmol/L Chloride 105 (98-107) mmol/L Carbon Dioxide 30.0 (21.0-32.0) mmol/L BUN 17 (7.0-18.0) mg/dL Creatinine 1.0 (0.8-1.3) mg/dL Est Cr Clr Drug Dosing 99.76 mL/min Estimated GFR (MDRD) > 60.0 ml/min Glucose 217 H (74-106) mg/dL Calcium 8.7 (8.5-10.1) mg/dL Magnesium 2.2 H (1.5-2.0) mg/dL Total Bilirubin (0.2-1.0) mg/dL AST (15-37) IU/L ALT (14-63) IU/L Alkaline Phosphatase (46-116) U/L Troponin I (0.000-0.056) ng/mL Total Protein (6.4-8.2) g/dL Albumin (3.4-5.0) g/dL Globulin (2.0-3.5) g/dL Albumin/Globulin Ratio (1.3-2.8) Urine Color Urine Appearance Urine pH (5.0-8.0) Ur Specific [place] [address] [place] (1.001-1.035) Urine Protein (NEGATIVE) mg/dL Urine Glucose (UA) (NEGATIVE) mg/dL Urine Ketones (NEGATIVE) mg/dL Urine Occult Blood (NEGATIVE) Urine Nitrite (NEGATIVE) Urine Bilirubin (NEGATIVE) Urine Urobilinogen (<2.0) EU/dL Ur Leukocyte Esterase (NEGATIVE) Urine RBC (0-2/HPF) Urine WBC (0-5/HPF) Ur Epithelial Cells (NONE-FEW) Urine Bacteria (NEGATIVE) Bruno Results Last 24 Hours: Microbiology 12/08/17 15:45 Influenza Type A Antigen Screen - Final Nasopharyngeal Swab NEGATIVE INFLUENZA A VIRUS AG Influenza Type B Antigen Screen - Final NEGATIVE INFLUENZA B VIRUS AG 12/08/17 14:20 Gram Stain - Preliminary Sputum - Expectorated Med Orders - Current: Current Medications Acetaminophen (Tylenol) 650 mg PO Q4H PRN PRN Reason: Pain (mild 1-3) Albuterol/Ipratropium (Duoneb 3.0-0.5 Mg/3 Ml) 3 ml NEB Q4HRRT PRN PRN Reason: sob/wheezing Enoxaparin Sodium (Lovenox) 40 mg SUBCUT Q24H [facility] Last Admin: 12/08/17 14:11 Dose: 40 mg Lactated Ringer's (Ringers, Lactated) 1,000 mls @ 125 mls/hr IV ASDIRECTED [facility] Last Admin: 12/09/17 04:14 Dose: 125 mls/hr Levofloxacin/Dextrose 750 mg/ (Premix) 150 mls @ 100 mls/hr IV Q24H [facility] Last Admin: 12/08/17 14:11 Dose: 100 mls/hr Piperacillin Sod/Tazobactam (Sod 4.5 gm/ Sodium Chloride) 100 mls @ 100 mls/hr IV Q6H [facility] Last Admin: 12/09/17 04:17 Dose: 100 mls/hr Ondansetron HCl (Zofran) 4 mg IVPUSH Q4H PRN PRN Reason: Nausea Sodium Chloride (Saline Flush) 10 ml FLUSH ASDIRECTED PRN PRN Reason: Keep Vein Open Sodium Chloride (Saline Flush) 2.5 ml FLUSH ASDIRECTED PRN PRN Reason: Keep Vein Open Discontinued Medications Albuterol/Ipratropium (Duoneb 3.0-0.5 Mg/3 Ml) 3 ml NEB ONETIME ONE Stop: 12/08/17 10:20 Last Admin: 12/08/17 10:40 Dose: 3 ml Sodium Chloride (Normal Saline) 1,000 mls @ 250 mls/hr IV STAT ONE Stop: 12/08/17 14:25 Last Admin: 12/08/17 11:09 Dose: 250 mls/hr Azithromycin 500 mg/ Sodium (Chloride) 500 mls @ 250 mls/hr IV ONETIME ONE Stop: 12/08/17 13:50 Last Admin: 12/08/17 12:21 Dose: Not Given Ceftriaxone Sodium/Dextrose 1 (gm/ Premix) 50 mls @ 100 mls/hr IV ONETIME ONE Stop: 12/08/17 12:20 Last Admin: 12/08/17 14:03 Dose: Not Given Azithromycin 500 mg/ Sodium (Chloride) 250 mls @ 125 mls/hr IV ONETIME ONE Stop: 12/08/17 13:50 Last Admin: 12/08/17 12:14 Dose: 125 mls/hr Ceftriaxone Sodium 1 gm/ (Sodium Chloride) 50 mls @ 100 mls/hr IV ONETIME ONE Stop: 12/08/17 12:20 Last Admin: 12/08/17 14:04 Dose: Not Given Piperacillin Sod/Tazobactam (Sod 4.5 gm/ Sodium Chloride) 100 mls @ 100 mls/hr IV Q6H [facility] Last Admin: 12/08/17 19:53 Dose: Not Given Ondansetron HCl (Zofran) 4 mg IVPUSH ONETIME ONE Stop: 12/08/17 10:27 Last Admin: 12/08/17 11:12 Dose: 4 mg - Exam Quality Assessment: Supplemental Oxygen, DVT Prophylaxis General: Alert, Oriented, Cooperative, No Acute Distress Neck: Supple Lungs: Normal Respiratory Effort, Crackles (L base), Wheezing (scnat throughout) Cardiovascular: Regular Rate, Regular Rhythm, No Murmurs GI/Abdominal Exam: Normal Bowel Sounds, Soft, Non-Tender, No Organomegaly, No Distention, No Abnormal Bruit, No Mass, Pelvis Stable Back Exam: Normal Inspection, Full Range of Motion Extremities: Normal Inspection, Normal Range of Motion, Non-Tender, No Pedal Edema, Normal Capillary Refill Neurological: No New Focal Deficit Psy/Mental Status: Alert, Normal Affect, Normal Mood - Problem List & Annotations (1) Gram-negative infection SNOMED Code(s): 069141078 Code(s): A49.9 - BACTERIAL INFECTION, UNSPECIFIED Status: Suspected Current Visit: Yes (2) Pneumonia SNOMED Code(s): 146510733 Code(s): J18.9 - PNEUMONIA, UNSPECIFIED ORGANISM Status: Acute Current Visit: No Qualifiers: Pneumonia type: due to unspecified organism Laterality: left Lung location: lower lobe of lung Qualified Code(s): J18.1 - Lobar pneumonia, unspecified organism (3) Acute and chronic respiratory failure with hypoxia SNOMED Code(s): 41534121, 828471223 Code(s): J96.21 - ACUTE AND CHRONIC RESPIRATORY FAILURE WITH HYPOXIA Status : Acute Current Visit: Yes (4) UTI (urinary tract infection) SNOMED Code(s): 93544392 Code(s): N39.0 - URINARY TRACT INFECTION, SITE NOT SPECIFIED Status: Acute Current Visit: Yes Qualifiers: Urinary tract infection type: acute cystitis Hematuria presence: without hematuria Qualified Code(s): N30.00 - Acute cystitis without hematuria (5) Dyspnea SNOMED Code(s): 335080533 Code(s): R06.00 - DYSPNEA, UNSPECIFIED Status: Acute Current Visit: Yes Qualifiers: Dyspnea type: shortness of breath Qualified Code(s): R06.02 - Shortness of breath; R06.00 - Dyspnea, unspecified; R06.01 - Orthopnea (6) 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 SNOMED Code(s): 834567557, 701881215 Code(s): J70.1 - CHRONIC AND OTHER PULMONARY MANIFESTATIONS DUE TO RADIATION Status: Chronic Current Visit: No (7) Immunosuppression SNOMED Code(s): 33637884 Code(s): D89.9 - DISORDER INVOLVING THE IMMUNE MECHANISM, UNSPECIFIED Status: Chronic Current Visit: No (8) Multiple myeloma SNOMED Code(s): 510684762 Code(s): C90.00 - MULTIPLE MYELOMA NOT HAVING ACHIEVED REMISSION Status: Chronic Priority: Medium Current Visit: No Qualifiers: Multiple myeloma remission status: not in remission Qualified Code(s): C90.00 - Multiple myeloma not having achieved remission - Problem List Review Problem List Initiated/Reviewed/Updated: Yes - My Orders Last 24 Hours: My Active Orders 12/08/17 12:03 Acetaminophen [Tylenol] 650 mg PO Q4H PRN Ondansetron [Zofran] 4 mg IVPUSH Q4H PRN Resuscitation Status Routine 12/08/17 12:07 Oxygen Therapy [RC] PRN VTE/DVT Education [RC] PER UNIT ROUTINE Vital Signs [RC] Q4H 12/08/17 12:15 Enoxaparin [Lovenox] 40 mg SUBCUT Q24H Lactated Ringers [Ringers, Lactated] 1,000 ml IV ASDIRECTED Levofloxacin/Dextrose 5%-Water [Levaquin in D5W 750 MG/150 ML] 750 mg Premix Bag 1 bag IV Q24H 12/08/17 13:06 CDIFF TOX A+B [OP] Routine CULTURE STOOL + CAMPY+SHIGATOX [RM] Routine WBC, STOOL [OP] Routine 12/08/17 13:35 RT Aerosol Therapy [RC] ASDIRECTED Albuterol/Ipratropium [DuoNeb 3.0-0.5 MG/3 ML] 3 ml NEB Q4HRRT PRN 12/08/17 14:20 CULTURE SPUTUM + SMEAR [RM] Routine 12/08/17 15:45 INFLUENZA A+B AG SCREEN [RM] Routine 12/08/17 23:00 Piperacillin/Tazobactam [Piperacil-Tazobact] 4.5 gm Sodium Chloride 0.9% [ Normal Saline] 100 ml IV Q6H 12/08/17 Lunch Regular Diet [DIET] 12/10/17 05:11 BASIC METABOLIC PANEL,BMP [CHEM] AM CBC WITH AUTO DIFF [HEME] AM MAGNESIUM [CHEM] AM - Plan Plan:: This 57 year old male admitted with UTI acute respiratory failure with hypoxia and pneumonia. 1. UTI: UC pending. Will treat with Levaquin. No flank pain or lower abdominal pain. 2. Pneumonia: Improving, Will attempt to wean oxygen as possible. Continue with Levaquin and Zosyn due to immunocompromised state and cover for probable gram negative pneumonia. BC pending and sputum culture gram stain reveals many gram negative rods and few gram + cicc in clusters and chains. Influenza negative. Duonebs PRN and oxygen as well. 3. Dehydration: resolved. No Diarrhea and appetite has improved. No further nausea. 4. Multiple myeloma: Received chemotherapy last week. Continue Acyclovir. PCN on hold due to given Zosyn above. Reports he took 40 mg Dexamethasone prior to chemotherapy treatment, which was canceled due to illness. VTE prophylaxis: Lovenox. Dispo: 1-2 days pending improvement.
[2017-12-09] MEDS ORDERED: Diclofenac Sodium 50 MG Tab.EC PO PRN (09:35)
[2017-12-09] MEDS: Acyclovir 200 MG Cap PO SCH ×2 (10:04→20:27)
[2017-12-09] MEDS: Levofloxacin/Dextrose 5%-Water 750 MG in Premix Bag 1 BAG IV SCH (11:50)
[2017-12-09] MEDS: Enoxaparin 40 MG/0.4 ML Syringe SUBCUT SCH (11:52)
[2017-12-09] MEDS: Fluticasone/Salmeterol 250-50 MCG Inhalation Powder 14/Diskus INH SCH ×2 (20:17→20:25)
[2017-12-09] MEDS: Rosuvastatin 10 MG Tab PO SCH (20:26)
[2017-12-10] MEDS: Piperacillin/Tazobactam 4.5 GM in Sodium Chloride 0.9% 100 ML IV SCH ×4 (04:21→22:28)
[2017-12-10] MEDS: Fluticasone/Salmeterol 250-50 MCG Inhalation Powder 14/Diskus INH SCH ×2 (06:09→20:48)
[2017-12-10 06:51] LABS: CHLORIDE,CL 107 mmol/L (98-107); SODIUM,NA 141 mmol/L (136-148)
[2017-12-10] MEDS: Acyclovir 200 MG Cap PO SCH ×2 (09:07→21:44)
[2017-12-10] MEDS: Levofloxacin/Dextrose 5%-Water 750 MG in Premix Bag 1 BAG IV SCH (11:55)
[2017-12-10] MEDS: Enoxaparin 40 MG/0.4 ML Syringe SUBCUT SCH (11:57)
--- NOTE | 2017-12-10 12:33 | PCM.PN ---
- General Info Date of Service: 12/10/17 Admission Dx/Problem (Free Text): Admission Diagnosis/Problem Admission Diagnosis/Problem Urinary tract infection, acute hypoxic respiratory failure with hypoxia and pneumonia Subjective Update: No overnight events. Patient doing better today. Hypoxia resolved Functional Status: Reports: Pain Controlled, Tolerating Diet, Ambulating - Review of Systems General: Reports: No Symptoms HEENT: Reports: No Symptoms Pulmonary: Reports: No Symptoms Cardiovascular: Reports: No Symptoms Gastrointestinal: Reports: No Symptoms Genitourinary: Reports: No Symptoms Musculoskeletal: Reports: No Symptoms Skin: Reports: No Symptoms Neurological: Reports: No Symptoms Psychiatric: Reports: No Symptoms - Patient Data Vitals - Most Recent: Last Vital Signs Temp 37.1 C 12/10/17 08:00 Pulse 70 12/10/17 08:00 Resp 14 12/10/17 08:00 BP 135/67 12/10/17 08:00 Pulse Ox 97 12/10/17 08:00 Weight - Most Recent: 154.221 kg I&O - Last 24 Hours: Intake & Output 12/09/17 12/10/17 12/10/17 22:59 06:59 14:59 Intake Total 800 1000 Output Total 900 1050 Balance -100 -50 Lab Results Last 24 Hours: Laboratory Results - last 24 hr 12/10/17 12/10/17 Range/Units 05:59 05:59 WBC 7.39 (4.0-11.0) K/uL RBC 3.12 L (4.50-5.90) M/uL Hgb 9.6 L (13.0-17.0) g/dL Hct 29.3 L (38.0-50.0) % MCV 93.9 (80.0-98.0) fL MCH 30.8 (27.0-32.0) pg MCHC 32.8 (31.0-37.0) g/dL RDW Std Deviation 54.5 (28.0-62.0) fl RDW Coeff of Christiano 16 H (11.0-15.0) % Plt Count 137 L (150-400) K/uL MPV 9.30 (7.40-12.00) fL Add Manual Diff YES Neutrophils % (Manual) 66 (48.0-80.0) % Band Neutrophils % 10 % Lymphocytes % (Manual) 11 L (16.0-40.0) % Monocytes % (Manual) 12 (0.0-15.0) % Nucleated RBC % 0.0 /100WBC Absolute Seg Neuts 4.9 (1.4-5.7) Band Neutrophils # 0.7 Lymphocytes # (Manual) 0.8 (0.6-2.4) Monocytes # (Manual) 0.9 H (0.0-0.8) Nucleated RBCs # 0 K/uL Sodium 141 (136-148) mmol/L Potassium 4.1 (3.5-5.1) mmol/L Chloride 107 (98-107) mmol/L Carbon Dioxide 29.1 (21.0-32.0) mmol/L BUN 22 H (7.0-18.0) mg/dL Creatinine 1.1 (0.8-1.3) mg/dL Est Cr Clr Drug Dosing 90.69 mL/min Estimated GFR (MDRD) > 60.0 ml/min Glucose 142 H (74-106) mg/dL Calcium 8.7 (8.5-10.1) mg/dL Magnesium 2.2 H (1.5-2.0) mg/dL Bruno Results Last 24 Hours: Microbiology 12/08/17 11:22 Aerobic Blood Culture - Preliminary Blood - Venous - Lab Draw NO GROWTH AFTER 2 DAYS Anaerobic Blood Culture - Preliminary NO GROWTH AFTER 2 DAYS 12/08/17 10:36 Aerobic Blood Culture - Preliminary Blood - Venous NO GROWTH AFTER 2 DAYS Anaerobic Blood Culture - Preliminary NO GROWTH AFTER 2 DAYS 12/08/17 11:00 Urine Culture - Final Urine, Clean Catch MIXED KIM <1000 CFU/ML 12/08/17 14:20 Gram Stain - Final Sputum - Expectorated Med Orders - Current: Current Medications Acetaminophen (Tylenol) 650 mg PO Q4H PRN PRN Reason: Pain (mild 1-3) Acyclovir (Zovirax) 400 mg PO BID [facility] Last Admin: 12/10/17 09:07 Dose: 400 mg Albuterol/Ipratropium (Duoneb 3.0-0.5 Mg/3 Ml) 3 ml NEB Q4HRRT PRN PRN Reason: sob/wheezing Diclofenac Sodium (Voltaren) 50 mg PO BID PRN PRN Reason: Pain Enoxaparin Sodium (Lovenox) 40 mg SUBCUT Q24H [facility] Last Admin: 12/10/17 11:57 Dose: 40 mg Levofloxacin/Dextrose 750 mg/ (Premix) 150 mls @ 100 mls/hr IV Q24H [facility] Last Admin: 12/10/17 11:55 Dose: 100 mls/hr Piperacillin Sod/Tazobactam (Sod 4.5 gm/ Sodium Chloride) 100 mls @ 100 mls/hr IV Q6H [facility] Last Admin: 12/10/17 10:34 Dose: 100 mls/hr Ondansetron HCl (Zofran) 4 mg IVPUSH Q4H PRN PRN Reason: Nausea Rosuvastatin Calcium (Crestor) 20 mg PO BEDTIME [facility] Last Admin: 12/09/17 20:26 Dose: 20 mg Fluticasone/Salmeterol (Advair Diskus 250-50) 1 puff INH BIDRT [facility] Last Admin: 12/10/17 06:09 Dose: 1 puff Sodium Chloride (Saline Flush) 10 ml FLUSH ASDIRECTED PRN PRN Reason: Keep Vein Open Sodium Chloride (Saline Flush) 2.5 ml FLUSH ASDIRECTED PRN PRN Reason: Keep Vein Open Discontinued Medications Albuterol/Ipratropium (Duoneb 3.0-0.5 Mg/3 Ml) 3 ml NEB ONETIME ONE Stop: 12/08/17 10:20 Last Admin: 12/08/17 10:40 Dose: 3 ml Sodium Chloride (Normal Saline) 1,000 mls @ 250 mls/hr IV STAT ONE Stop: 12/08/17 14:25 Last Admin: 12/08/17 11:09 Dose: 250 mls/hr Azithromycin 500 mg/ Sodium (Chloride) 500 mls @ 250 mls/hr IV ONETIME ONE Stop: 12/08/17 13:50 Last Admin: 12/08/17 12:21 Dose: Not Given Ceftriaxone Sodium/Dextrose 1 (gm/ Premix) 50 mls @ 100 mls/hr IV ONETIME ONE Stop: 12/08/17 12:20 Last Admin: 12/08/17 14:03 Dose: Not Given Azithromycin 500 mg/ Sodium (Chloride) 250 mls @ 125 mls/hr IV ONETIME ONE Stop: 12/08/17 13:50 Last Admin: 12/08/17 12:14 Dose: 125 mls/hr Ceftriaxone Sodium 1 gm/ (Sodium Chloride) 50 mls @ 100 mls/hr IV ONETIME ONE Stop: 12/08/17 12:20 Last Admin: 12/08/17 14:04 Dose: Not Given Lactated Ringer's (Ringers, Lactated) 1,000 mls @ 125 mls/hr IV ASDIRECTED [facility] Last Admin: 12/09/17 04:14 Dose: 125 mls/hr Piperacillin Sod/Tazobactam (Sod 4.5 gm/ Sodium Chloride) 100 mls @ 100 mls/hr IV Q6H [facility] Last Admin: 12/08/17 19:53 Dose: Not Given Ondansetron HCl (Zofran) 4 mg IVPUSH ONETIME ONE Stop: 12/08/17 10:27 Last Admin: 12/08/17 11:12 Dose: 4 mg - Exam General: Alert, Oriented HEENT: Pupils Equal, Pupils Reactive, EOMI, Mucous Membr. Moist/[place] Neck: Supple Lungs: Decreased Breath Sounds, Crackles, Rhonchi, Wheezing Cardiovascular: Regular Rate, Regular Rhythm GI/Abdominal Exam: Normal Bowel Sounds, Soft, Non-Tender Back Exam: Normal Inspection Extremities: Normal Inspection, No Pedal Edema, Normal Capillary Refill Skin: Moist Neurological: No New Focal Deficit Psy/Mental Status: Alert, Normal Affect, Normal Mood - Problem List Review Problem List Initiated/Reviewed/Updated: Yes - Plan Plan:: This 57 year old male admitted with UTI acute respiratory failure with hypoxia and pneumonia. #Pneumonia: Improving, hypoxia resolved. Continue with Levaquin and Zosyn due to immunocompromised state and cover for probable gram negative pneumonia. BC pending and sputum culture gram stain reveals many gram negative rods and few gram + cicc in clusters and chains. Influenza negative. Duonebs PRN and oxygen as well. #UTI: UC negative. No flank pain or lower abdominal pain. Treated with Levaquin #Dehydration: resolved. No Diarrhea and appetite has improved. No further nausea. #Multiple myeloma: Received chemotherapy last week. Continue Acyclovir. PCN on hold due to given Zosyn above. Reports he took 40 mg Dexamethasone prior to chemotherapy treatment, which was canceled due to illness. VTE prophylaxis: Lovenox. Dispo: 1-2 days pending improvement.
[2017-12-10] MEDS: Rosuvastatin 10 MG Tab PO SCH (21:44)
[2017-12-11] MEDS: Piperacillin/Tazobactam 4.5 GM in Sodium Chloride 0.9% 100 ML IV SCH ×2 (04:45→10:21)
[2017-12-11] MEDS: Fluticasone/Salmeterol 250-50 MCG Inhalation Powder 14/Diskus INH SCH (06:02)
[2017-12-11 08:04] VITALS: BP 143/75
[2017-12-11] MEDS: Acyclovir 200 MG Cap PO SCH (08:05)
--- NOTE | 2017-12-11 09:43 | PCM.DCSUM1 ---
Discharge Summary - Discharge Data Discharge Date: 12/11/17 Discharge Disposition: Home, Self-Care 01 Condition: Stable - Patient Summary/Data Hospital Course: Discharge Diagnosis Haemophilus Influenza pneumonia UTI Hospital Course 57 year old male with pmh of multiple myeloma admitted with pneumonia and UTI. He presented with cough and chills at home. Work up was significant for WBC 6, 350, hgb 11.1, platelets 130, Na 136, K+3.7, Bilirubin 1.1. UA revealed +4 bacteria, WBC 8-10, +nitrites and negative for leukocyte esterase. CXR revealed trace L basilar infiltrate vs atelectasis. Due to his immunocompromised state he was treated for possible gram negative liza respiratory infection with levaquin and zosyn. His sputum culture grew out Haemophilus Inlluenza. Urine culture grew out mixed halie. Today patient is requesting discharge. He was discharged home on Levaquin he is to follow up with [facility]. - Patient Instructions Diet: Regular Diet as Tolerated Activity: As Tolerated - Discharge Plan Prescriptions/Med Rec: Levofloxacin 750 mg PO DAILY #7 tablet Home Medications: Home Meds Acyclovir [Zovirax] 400 mg PO BID 10/08/15 [History] Diclofenac Sodium [Voltaren] 50 mg PO BID PRN 02/03/17 [History] Dexamethasone 40 mg PO Q7D 12/09/17 [History] Ipratropium/Albuterol Sulfate [IJD: DuoNeb 3.0-0.5 MG/3 ML] 3 ml NEB QID [History] Penicillin V Potassium 500 mg PO BID 12/09/17 [History] Rosuvastatin Calcium 20 mg PO BEDTIME 12/09/17 [History] oxyCODONE 5 mg PO Q6H 12/09/17 [History] Levofloxacin 750 mg PO DAILY #7 tablet 12/11/17 [Rx] Referrals: [facility] [Outside] Katie Cobb DO [Physician] - 12/23/17 9:30 am (Please check in at 9:15 a.m.) Luciano Mann MD [Ordering Only Provider] - 12/15/17 11:30 am - Patient Data Vitals - Most Recent: Last Vital Signs Temp 36.3 C 12/11/17 08:00 Pulse 70 12/11/17 08:00 Resp 18 12/11/17 08:00 BP 143/75 H 12/11/17 08:00 Pulse Ox 94 L 12/11/17 08:00 Weight - Most Recent: 154.221 kg I&O - Last 24 hours: Intake & Output 12/10/17 12/11/17 12/11/17 22:59 06:59 14:59 Intake Total 1250 750 Output Total 1600 700 Balance -350 50 MELINDA Results - Last 24 hrs: Microbiology 12/08/17 14:20 Gram Stain - Final Sputum - Expectorated Sputum Culture - Preliminary Haemophilus Influenzae Ii Normal Respiratory Halie 12/08/17 11:22 Aerobic Blood Culture - Preliminary Blood - Venous - Lab Draw NO GROWTH AFTER 2 DAYS Anaerobic Blood Culture - Preliminary NO GROWTH AFTER 2 DAYS 12/08/17 10:36 Aerobic Blood Culture - Preliminary Blood - Venous NO GROWTH AFTER 2 DAYS Anaerobic Blood Culture - Preliminary NO GROWTH AFTER 2 DAYS 12/08/17 11:00 Urine Culture - Final Urine, Clean Catch MIXED HALIE <1000 CFU/ML Med Orders - Current: Current Medications Acetaminophen (Tylenol) 650 mg PO Q4H PRN PRN Reason: Pain (mild 1-3) Acyclovir (Zovirax) 400 mg PO BID [facility] Last Admin: 12/11/17 08:05 Dose: 400 mg Albuterol/Ipratropium (Duoneb 3.0-0.5 Mg/3 Ml) 3 ml NEB Q4HRRT PRN PRN Reason: sob/wheezing Diclofenac Sodium (Voltaren) 50 mg PO BID PRN PRN Reason: Pain Enoxaparin Sodium (Lovenox) 40 mg SUBCUT Q24H [facility] Last Admin: 12/10/17 11:57 Dose: 40 mg Levofloxacin/Dextrose 750 mg/ (Premix) 150 mls @ 100 mls/hr IV Q24H [facility] Last Admin: 12/10/17 11:55 Dose: 100 mls/hr Piperacillin Sod/Tazobactam (Sod 4.5 gm/ Sodium Chloride) 100 mls @ 100 mls/hr IV Q6H [facility] Last Admin: 12/11/17 04:45 Dose: 100 mls/hr Ondansetron HCl (Zofran) 4 mg IVPUSH Q4H PRN PRN Reason: Nausea Rosuvastatin Calcium (Crestor) 20 mg PO BEDTIME [facility] Last Admin: 12/10/17 21:44 Dose: 20 mg Fluticasone/Salmeterol (Advair Diskus 250-50) 1 puff INH BIDRT [facility] Last Admin: 12/11/17 06:02 Dose: 1 puff Sodium Chloride (Saline Flush) 10 ml FLUSH ASDIRECTED PRN PRN Reason: Keep Vein Open Sodium Chloride (Saline Flush) 2.5 ml FLUSH ASDIRECTED PRN PRN Reason: Keep Vein Open Discontinued Medications Albuterol/Ipratropium (Duoneb 3.0-0.5 Mg/3 Ml) 3 ml NEB ONETIME ONE Stop: 12/08/17 10:20 Last Admin: 12/08/17 10:40 Dose: 3 ml Sodium Chloride (Normal Saline) 1,000 mls @ 250 mls/hr IV STAT ONE Stop: 12/08/17 14:25 Last Admin: 12/08/17 11:09 Dose: 250 mls/hr Azithromycin 500 mg/ Sodium (Chloride) 500 mls @ 250 mls/hr IV ONETIME ONE Stop: 12/08/17 13:50 Last Admin: 12/08/17 12:21 Dose: Not Given Ceftriaxone Sodium/Dextrose 1 (gm/ Premix) 50 mls @ 100 mls/hr IV ONETIME ONE Stop: 12/08/17 12:20 Last Admin: 12/08/17 14:03 Dose: Not Given Azithromycin 500 mg/ Sodium (Chloride) 250 mls @ 125 mls/hr IV ONETIME ONE Stop: 12/08/17 13:50 Last Admin: 12/08/17 12:14 Dose: 125 mls/hr Ceftriaxone Sodium 1 gm/ (Sodium Chloride) 50 mls @ 100 mls/hr IV ONETIME ONE Stop: 12/08/17 12:20 Last Admin: 12/08/17 14:04 Dose: Not Given Lactated Ringer's (Ringers, Lactated) 1,000 mls @ 125 mls/hr IV ASDIRECTED [facility] Last Admin: 12/09/17 04:14 Dose: 125 mls/hr Piperacillin Sod/Tazobactam (Sod 4.5 gm/ Sodium Chloride) 100 mls @ 100 mls/hr IV Q6H [facility] Last Admin: 12/08/17 19:53 Dose: Not Given Ondansetron HCl (Zofran) 4 mg IVPUSH ONETIME ONE Stop: 12/08/17 10:27 Last Admin: 12/08/17 11:12 Dose: 4 mg
[2017-12-11] MEDS: Levofloxacin/Dextrose 5%-Water 750 MG in Premix Bag 1 BAG IV SCH (12:53)
[2017-12-11] MEDS: Enoxaparin 40 MG/0.4 ML Syringe SUBCUT SCH (12:54)
== END 2017-12-11 11:30 | disposition home or self-care (01) | DRG 193 ==
LOC: MW.ED 10:12 → MW.MS 12:01
PROVIDERS: ADMIT Family Medicine; ATTEND Family Medicine
DX: J14 Pneumonia due to Hemophilus influenzae (principal); J96.21 Acute and chronic respiratory failure with hypoxia; N39.0 Urinary tract infection, site not specified; C90.00 Multiple myeloma not having achieved remission; J70.1 Chronic and other pulmonary manifestations due to radiation; D89.9 Disorder involving the immune mechanism, unspecified; E86.0 Dehydration; Z88.2 Allergy status to sulfonamides; Z79.899 Other long term (current) drug therapy
CPT/HCPCS: 36415; 71045; 71045-26; 80048; 80053; 81001; 83735; 84484; 85025; 87040; 87070; 87077; 87086; 87205; 87804; 93005; 94640; 94664; 96365; 96375; 99285-25; A9270-GY; J0456; J1650; J1956; J2405; J2543; J7030; J7040; J7050; J7120

== ENCOUNTER 2018-01-23 08:25 | Emergency (ER) | payer OTHER ==
[2018-01-23] MEDS ORDERED: Sodium Chloride 0.9% 2.5 ML Syringe FLUSH PRN (08:31)
[2018-01-23] MEDS ORDERED: Sodium Chloride 0.9% 1,000 ML IV ONE ×2 (08:31→10:37)
[2018-01-23] MEDS ORDERED: Sodium Chloride 0.9% 10 ML Syringe FLUSH PRN (08:31)
--- NOTE | 2018-01-23 08:35 | EDM.PDOC ---
ED HPI GENERAL MEDICAL PROBLEM - General Stated Complaint: LOW OXYGEN Time Seen by Provider: 01/23/18 08:26 Source of Information: Reports: Patient History Limitations: Reports: No Limitations - History of Present Illness INITIAL COMMENTS - FREE TEXT/NARRATIVE: History of present illness: []Patient has a 5 year history of multiple myeloma and lung tumors currently treated by Dr. Mann in oncology and on chemotherapy received last . He has multiple lung lesions and has been evaluated by channel manager in [place], Dr. Fernando. Patient was discharged in the hospital on January 11 with diagnosis of Haemophilus influenza pneumonia treated with Levaquin and Zosyn in the hospital and discharged with Levaquin. At the time of discharge he apparently did not need oxygen. He was in the cancer Center this morning and found to have O2 sat on room air of 84% was then brought to the ER. Review of systems: As per history of present illness and below otherwise all systems reviewed and negative. Past medical history: As per history of present illness and as reviewed below otherwise noncontributory. Surgical history: As per history of present illness and as reviewed below otherwise noncontributory. Social history: No reported history of drug or alcohol abuse. Family history: As per history of present illness and as reviewed below otherwise noncontributory. Physical exam: General: Well developed, well nourished in NAD HEENT: Atraumatic, normocephalic, pupils reactive, negative for conjunctival pallor or scleral icterus, mucous membranes moist, throat clear, neck supple, nontender, trachea midline. Lungs: Clear to auscultation, breath sounds equal bilaterally, chest nontender. Heart: S1S2, regular, negative for clicks, rubs, or JVD. Abdomen: Soft, nondistended, nontender. Negative for masses or hepatosplenomegaly. Negative for costovertebral tenderness. Pelvis: Stable nontender. Genitourinary: Deferred. Rectal: Deferred. Extremities: Atraumatic, negative for cords or calf pain. Neurovascular unremarkable. Neuro: Awake, alert, oriented. Cranial nerves II through XII unremarkable. Cerebellum unremarkable. Motor and sensory unremarkable throughout. Exam nonfocal. Diagnostics: []EKG shows normal sinus 72 with flipped T's in the anterior leads and nonspecific T-wave changes, CBC shows elevated white count 15,000 with a shift, Potassium slightly low at 3.1, troponin positive at 0.148( 0-0.056 nl), EKG with T-wave changes that are new, Therapeutics: []Patient was a somewhat oxygen with improvement of hypoxia, given aspirin, potassium 40 mEq, and Zosyn started. Impression: []Increasing pneumonia, elevated troponin, hypoxia Plan: []Dr. Mann from oncology was consulted and recommends transfer for evaluation by business operations director, Dr. Agudelo except patient to [facility] emergency room he is transferred by ground ambulance. Patient remained stable while in the ED Definitive disposition and diagnosis as appropriate pending reevaluation and review of above. Right Upper Back Pain Score (Numeric/FACES): 3 - Related Data Allergies Allergy/AdvReac Type Severity Reaction Status Date / Time Sulfa (Sulfonamide Allergy Rash Verified 01/23/18 09:12 Antibiotics) Home Meds: Home Meds Acyclovir [Zovirax] 400 mg PO BID 10/08/15 [History] Diclofenac Sodium [Voltaren] 50 mg PO BID PRN 02/03/17 [History] Dexamethasone 40 mg PO Q7D 12/09/17 [History] Ipratropium/Albuterol Sulfate [IJD: DuoNeb 3.0-0.5 MG/3 ML] 3 ml NEB QID [History] Penicillin V Potassium 500 mg PO BID 12/09/17 [History] Rosuvastatin Calcium 20 mg PO BEDTIME 12/09/17 [History] oxyCODONE 5 mg PO Q6H 12/09/17 [History] Levofloxacin 750 mg PO DAILY #7 tablet 12/11/17 [Rx] Past Medical History Cardiovascular History: Reports: Heart Failure (from chemotherapy, this was changed, no reocurrence), High Cholesterol. 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 Denies: GERD, GI Bleed Genitourinary History: Reports: None. Denies: Chronic Renal Insuffiency Psychiatric History: Reports: None Endocrine/Metabolic History: Reports: Obesity/BMI 30+. Denies: Diabetes, Type II Hematologic History: Reports: None Immunologic History: 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 Transplant Oncologic (Cancer) History: Reports: Other (See Below) (Multiple myeloma with chest tumors as well as osseous lesions to L scalp region.) - Infectious Disease History Infectious Disease History: Reports: Chicken Pox - Past Surgical History Head Surgeries/Procedures: Reports: None Musculoskeletal Surgical History: Reports: Hip Replacement, Other (See Below) Social & Family History - Family History Family Medical History: Noncontributory - Caffeine Use Caffeine Use: Reports: Energy Drinks, Soda - Living Situation & Occupation Living situation: Reports: Occupation: Employed ED ROS GENERAL - Review of Systems Review Of Systems: See Below (See history of present illness) ED EXAM, GENERAL - Physical Exam Exam: See Below (See history of present illness) Course - Vital Signs Last Recorded V/S: Last Vital Signs Temp 97.7 F 01/23/18 08:37 Pulse 72 01/23/18 10:01 Resp 20 01/23/18 10:01 BP 106/60 01/23/18 10:01 Pulse Ox 99 01/23/18 10:01 - Orders/Labs/Meds Orders: Active Orders 24 hr Category Date Time Status EKG 12 Lead [EKG Documentation Completion] [RC] STAT Care 01/23/18 08:44 Active B-TYPE NATRIURETIC PEPTIDE,BNP [CHEM] Stat Lab 01/23/18 08:37 Received Piperacillin/Tazobactam [Piperacil-Tazobact] 3.375 gm Med 01/23/18 10:04 Active Sodium Chloride 0.9% [Normal Saline] 50 ml IV ONETIME Sodium Chloride 0.9% [Saline Flush] Med 01/23/18 08:31 Active 10 ml FLUSH ASDIRECTED PRN Sodium Chloride 0.9% [Saline Flush] Med 01/23/18 08:31 Active 2.5 ml FLUSH ASDIRECTED PRN Saline Lock Insert [OM.PC] Stat Oth 01/23/18 08:30 Ordered Medication Orders Piperacillin Sod/Tazobactam (Sod 3.375 gm/ Sodium Chloride) 50 mls @ 100 mls/ hr IV ONETIME ONE Stop: 01/23/18 10:33 Sodium Chloride (Saline Flush) 10 ml FLUSH ASDIRECTED PRN PRN Reason: Keep Vein Open Last Admin: 01/23/18 08:55 Dose: 10 ml Sodium Chloride (Saline Flush) 2.5 ml FLUSH ASDIRECTED PRN PRN Reason: Keep Vein Open Last Admin: 01/23/18 08:55 Dose: 2.5 ml Labs: Laboratory Tests 01/23/18 01/23/18 01/23/18 Range/Units 08:37 08:37 08:37 WBC 15.51 H (4.0-11.0) K/uL RBC 3.69 L (4.50-5.90) M/uL Hgb 11.4 L (13.0-17.0) g/dL Hct 33.9 L (38.0-50.0) % MCV 91.9 (80.0-98.0) fL MCH 30.9 (27.0-32.0) pg MCHC 33.6 (31.0-37.0) g/dL RDW Std Deviation 51.4 (28.0-62.0) fl RDW Coeff of Christiano 15 (11.0-15.0) % Plt Count 158 (150-400) K/uL MPV 10.80 (7.40-12.00) fL Add Manual Diff YES Neutrophils % (Manual) 82 H (48.0-80.0) % Band Neutrophils % 7 % Lymphocytes % (Manual) 9 L (16.0-40.0) % Monocytes % (Manual) 2 (0.0-15.0) % Nucleated RBC % 0.0 /100WBC Absolute Seg Neuts 12.7 H (1.4-5.7) Band Neutrophils # 1.1 Lymphocytes # (Manual) 1.4 (0.6-2.4) Monocytes # (Manual) 0.3 (0.0-0.8) Nucleated RBCs # 0 K/uL Sodium 136 (136-148) mmol/L Potassium 3.1 L (3.5-5.1) mmol/L Chloride 97 L (98-107) mmol/L Carbon Dioxide 30.7 (21.0-32.0) mmol/L BUN 32 H (7.0-18.0) mg/dL Creatinine 1.6 H (0.8-1.3) mg/dL Est Cr Clr Drug Dosing TNP Estimated GFR (MDRD) 45.1 ml/min Glucose 123 H (74-106) mg/dL Calcium 9.5 (8.5-10.1) mg/dL Total Bilirubin 0.8 (0.2-1.0) mg/dL AST 46 H (15-37) IU/L ALT 35 (14-63) IU/L Alkaline Phosphatase 81 (46-116) U/L Troponin I 0.148 H* (0.000-0.056) ng/mL Total Protein 7.3 (6.4-8.2) g/dL Albumin 2.3 L (3.4-5.0) g/dL Globulin 5.0 H (2.0-3.5) g/dL Albumin/Globulin Ratio 0.5 L (1.3-2.8) Meds: Medications Generic Name Dose Route Start Last Admin Trade Name Freq PRN Reason Stop Dose Admin Piperacillin Sod/Tazobactam 50 mls @ 100 mls/hr 01/23/18 10:04 Sod 3.375 gm/ Sodium Chloride IV 01/23/18 10:33 ONETIME ONE Sodium Chloride 10 ml 01/23/18 08:31 01/23/18 08:55 Saline Flush FLUSH 10 ml ASDIRECTED PRN Administration Keep Vein Open Sodium Chloride 2.5 ml 01/23/18 08:31 01/23/18 08:55 Saline Flush FLUSH 2.5 ml ASDIRECTED PRN Administration Keep Vein Open Discontinued Medications Generic Name Dose Route Start Last Admin Trade Name Freq PRN Reason Stop Dose Admin Aspirin 81 mg 01/23/18 10:00 Aspirin PO 01/23/18 10:01 ONETIME ONE Sodium Chloride 1,000 mls @ 999 mls/hr 01/23/18 08:31 01/23/18 08:55 Normal Saline IV 01/23/18 09:31 999 mls/hr .Bolus ONE Administration Potassium Chloride 40 meq 01/23/18 09:42 01/23/18 10:00 Klor-Con M20 PO 01/23/18 09:43 40 meq ONETIME ONE Administration - Re-Assessments/Exams Free Text/Narrative Re-Assessment/Exam: Patient's labs showed positive troponin, however, patient is refusing any transfer until his oncologist is contacted. I have called his oncologist's office and am awaiting a return phone call. 01/23/18 09:57 Dr. Mann was contacted and he requests patient be transferred for full evaluation by a business operations director. Patient was told of was wishes and now agrees to be transferred. 01/23/18 10:25 Departure - Departure Time of Disposition: 10:32 Disposition: DC/Tfer to [facility] 02 Condition: Good Clinical Impression: Elevated troponin, Hypoxia Multiple myeloma Qualifiers: Multiple myeloma remission status: not in remission Qualified Code(s): C90.00 - Multiple myeloma not having achieved remission Haemophilus influenzae pneumonia Qualifiers: Laterality: right Lung location: middle lobe of lung Qualified Code(s): J14 - Pneumonia due to Hemophilus influenzae - Discharge Information - My Orders Last 24 Hours: My Active Orders 01/23/18 08:30 Saline Lock Insert [OM.PC] Stat 01/23/18 08:31 Sodium Chloride 0.9% [Saline Flush] 10 ml FLUSH ASDIRECTED PRN Sodium Chloride 0.9% [Saline Flush] 2.5 ml FLUSH ASDIRECTED PRN 01/23/18 08:37 B-TYPE NATRIURETIC PEPTIDE,BNP [CHEM] Stat 01/23/18 08:44 EKG 12 Lead [EKG Documentation Completion] [RC] STAT 01/23/18 10:04 Piperacillin/Tazobactam [Piperacil-Tazobact] 3.375 gm Sodium Chloride 0.9% [ Normal Saline] 50 ml IV ONETIME - Assessment/Plan Last 24 Hours: My Active Orders 01/23/18 08:30 Saline Lock Insert [OM.PC] Stat 01/23/18 08:31 Sodium Chloride 0.9% [Saline Flush] 10 ml FLUSH ASDIRECTED PRN Sodium Chloride 0.9% [Saline Flush] 2.5 ml FLUSH ASDIRECTED PRN 01/23/18 08:37 B-TYPE NATRIURETIC PEPTIDE,BNP [CHEM] Stat 01/23/18 08:44 EKG 12 Lead [EKG Documentation Completion] [RC] STAT 01/23/18 10:04 Piperacillin/Tazobactam [Piperacil-Tazobact] 3.375 gm Sodium Chloride 0.9% [ Normal Saline] 50 ml IV ONETIME
[2018-01-23] MEDS ORDERED: Ketorolac 30 MG/ML SDV IVPUSH ONE (08:59)
[2018-01-23] MEDS ORDERED: HYDROmorphone 2 MG/ML SDV IVPUSH ONE (09:00)
[2018-01-23] MEDS ORDERED: Dexamethasone 10 MG/ML SDV IVPUSH ONE (09:02)
[2018-01-23 09:23] LABS: CHLORIDE,CL 97 mmol/L (98-107); SODIUM,NA 136 mmol/L (136-148)
--- NOTE | 2018-01-23 09:40 | CR ---
EXAMINATION: Two-view chest (PA and Lateral views). HISTORY: Shortness of breath. Comparison: 01/12/2018 FINDINGS: The trachea is midline. The cardiomediastinal silhouette is within normal limits. Increasing right pe rihilar and right basilar airspace consolidation. Trace right pleural effusion is not excluded. No pn eumothorax. Calcified granulomas. Osseous structures appear unremarkable. IMPRESSION: 1. Increasing right perihilar and right basilar consolidation, likely representing an overlying infec tious etiology.
[2018-01-23] MEDS ORDERED: Potassium Chloride 20 MEQ Tab.ER PO ONE (09:42)
[2018-01-23] MEDS ORDERED: Aspirin 81 MG Tab.Chew PO ONE (10:00)
[2018-01-23] MEDS ORDERED: Piperacillin/Tazobactam 3.375 GM in Sodium Chloride 0.9% 50 ML IV ONE (10:04)
[2018-01-23 10:46] VITALS: BP 106/59
== END 2018-01-23 11:10 ==
LOC: MW.ED 08:25
DX: J14 Pneumonia due to Hemophilus influenzae (principal); C90.00 Multiple myeloma not having achieved remission; R09.02 Hypoxemia; R79.89 Other specified abnormal findings of blood chemistry; I50.9 Heart failure, unspecified; E78.00 Pure hypercholesterolemia, unspecified; Z79.899 Other long term (current) drug therapy; Z88.2 Allergy status to sulfonamides
CPT/HCPCS: 36415; 71046; 80053; 83880; 84484; 85025; 93005; 96361; 96365; 99285; A9270; J2543; J7040; J7050

== ENCOUNTER 2018-01-26 15:24 | Emergency (ER) | payer OTHER ==
--- NOTE | 2018-01-26 15:27 | EDM.PDOC ---
ED HPI GENERAL MEDICAL PROBLEM - General Chief Complaint: Respiratory Problem Stated Complaint: LOW OXYGEN Time Seen by Provider: 01/26/18 15:26 Source of Information: Reports: Patient History Limitations: Reports: No Limitations - History of Present Illness INITIAL COMMENTS - FREE TEXT/NARRATIVE: HISTORY AND PHYSICAL: []57-year-old male presents from the chemotherapy unit for evaluation due to shortness of breath and O2 saturation levels that have dropped to the 70s when he was walking History of Present Illness: []Patient is on room air he was 76 without oxygen he was 86 here on rest Review of Systems: As per history of present illness and below otherwise all systems reviewed and negative. Past medical history: As per history of present illness and as reviewed below otherwise noncontributory. Surgical history: As per history of present illness and as reviewed below otherwise noncontributory. Social history: No reported history of drug or alcohol abuse. Family history: As per history of present illness and as reviewed below otherwise noncontributory. Physical exam: Patient is accompanied by his both are quite pleasant answering questions appropriately a short sentences short of breath with any exertion. Nontoxic in appearance HEENT: Atraumatic, normocehpalic, pupils reactive, negative for conjunctival pallor or scleral icterus, mucous membranes moist, throat clear, neck supple, nontender, trachea midline. Lungs: Clear to auscultation, breath sounds equal bilaterally, chest non tender. Heart: S1S2, regular, negative for clicks, rubs, or JVD. Abdomen: Soft, nondistended, nontender. Negative for masses or hepatossplenmegaly. Negative for costovertebral tenderness. Pelvis: Stable nontender. Genitourinary: Deferred. Rectal: Deferred Extremities: Atraumatic, negative for cords or calf pain. Neurovascular unremarkable. Neuro: Awake, alert, oriented. Cranial nerves II through XII unremarkable. Cerebellum unremarkable. Motor and sensory unremarkable throughout. Exam nonfocal. Diagnostics: []CBC CMP Therapeutics: []O2 Impression: []Hypoxemia Plan: []Discharge Home O2 Follow-up with your primary care provider Dr. Fink Return to the emergency department is discussed and directed Definitive disposition and diagnosis as appropriate pending reevaluation and review of above. Onset: Gradual Duration: Chronic, Getting Worse Location: Reports: Chest Quality: Reports: Ache Severity: Moderate Improves with: Reports: None Worsens with: Reports: None Associated Symptoms: Reports: Malaise, Shortness of Breath Right Chest Pain Score (Numeric/FACES): 5 - Related Data Allergies Allergy/AdvReac Type Severity Reaction Status Date / Time Sulfa (Sulfonamide Allergy Rash Verified 01/26/18 15:40 Antibiotics) Home Meds: Home Meds Acyclovir [Zovirax] 400 mg PO BID 10/08/15 [History] Diclofenac Sodium [Voltaren] 50 mg PO BID PRN 02/03/17 [History] Ipratropium/Albuterol Sulfate [IJD: DuoNeb 3.0-0.5 MG/3 ML] 3 ml NEB QID [History] oxyCODONE 5 - 10 mg PO Q6H PRN 12/09/17 [History] Aspirin [Ecotrin] 325 mg PO DAILY 01/23/18 [History] Cholecalciferol (Vitamin D3) [Vitamin D3] 5,000 unit PO DAILY 01/23/18 [History] Fluticasone/Salmeterol [Advair 250-50 Diskus] 1 inh IH BID 01/23/18 [History] Ipratropium/Albuterol Sulfate [Combivent Respimat 20-100 Mcg] 1 inh IH QID 01/23 [History] Multivitamin with Minerals [Multiple Vitamin] 1 tab PO BID 01/23/18 [History] Prochlorperazine Maleate [Compazine] 10 mg PO QID 01/23/18 [History] Simvastatin [Zocor] 40 mg PO BEDTIME 01/23/18 [History] Amoxicillin/Potassium Clav [Augmentin 875-125 Tablet] 1 each PO BID #20 tablet 01/26/18 [Rx] Apixaban [Eliquis] 2.5 mg PO BID 01/26/18 [History] Past Medical History Cardiovascular History: Reports: Heart Failure (from chemotherapy, this was changed, no reocurrence), High Cholesterol. 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 Denies: GERD, GI Bleed Genitourinary History: Reports: None. Denies: Chronic Renal Insuffiency Psychiatric History: Reports: None Endocrine/Metabolic History: Reports: Obesity/BMI 30+. Denies: Diabetes, Type II Hematologic History: Reports: None Immunologic History: 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 Transplant Oncologic (Cancer) History: Reports: Other (See Below) (Multiple myeloma with chest tumors as well as osseous lesions to L scalp region.) Other Oncologic History: multiple myeloma - Infectious Disease History Infectious Disease History: Reports: Chicken Pox - Past Surgical History Head Surgeries/Procedures: Reports: None Musculoskeletal Surgical History: Reports: Hip Replacement, Other (See Below) Social & Family History - Family History Family Medical History: Noncontributory - Caffeine Use Caffeine Use: Reports: Energy Drinks, Soda - Living Situation & Occupation Living situation: Reports: Occupation: Employed ED ROS GENERAL - Review of Systems Review Of Systems: ROS reveals no pertinent complaints other than HPI. ED EXAM, GENERAL - Physical Exam Exam: See Below (see dictation) EKG INTERPRETATION EKG Date: 01/26/18 Rhythm: NSR Rate (Beats/Min): 72 Comparison: Change From Previous EKG Course - Vital Signs Last Recorded V/S: Last Vital Signs Temp 36.2 C 01/26/18 15:24 Pulse 76 01/26/18 15:24 Resp 16 01/26/18 15:24 BP 133/76 01/26/18 15:24 Pulse Ox 95 01/26/18 15:24 - Orders/Labs/Meds Orders: Active Orders 24 hr Category Date Time Status EKG Documentation Completion [RC] STAT Care 01/26/18 15:38 Active Oxygen Therapy, ED [RC] ASDIRECTED Care 01/26/18 15:38 Active RT Aerosol Therapy [RC] ASDIRECTED Care 01/26/18 16:03 Active Chest 2V [CR] Stat Exams 01/26/18 15:39 Taken CULTURE URINE [RM] Stat Lab 01/26/18 17:14 Ordered UA W/MICROSCOPIC [URIN] Stat Lab 01/26/18 17:11 Ordered Sodium Chloride 0.9% [Saline Flush] Med 01/26/18 15:38 Active 10 ml FLUSH ASDIRECTED PRN Sodium Chloride 0.9% [Saline Flush] Med 01/26/18 15:38 Active 2.5 ml FLUSH ASDIRECTED PRN Saline Lock Insert [OM.PC] Stat Oth 01/26/18 15:38 Ordered Medication Orders Sodium Chloride (Saline Flush) 10 ml FLUSH ASDIRECTED PRN PRN Reason: Keep Vein Open Sodium Chloride (Saline Flush) 2.5 ml FLUSH ASDIRECTED PRN PRN Reason: Keep Vein Open Labs: Laboratory Tests 01/26/18 01/26/18 01/26/18 Range/Units 15:54 15:54 15:54 WBC 9.32 (4.0-11.0) K/uL RBC 3.61 L (4.50-5.90) M/uL Hgb 11.0 L (13.0-17.0) g/dL Hct 32.9 L (38.0-50.0) % MCV 91.1 (80.0-98.0) fL MCH 30.5 (27.0-32.0) pg MCHC 33.4 (31.0-37.0) g/dL RDW Std Deviation 50.4 (28.0-62.0) fl RDW Coeff of Christiano 15 (11.0-15.0) % Plt Count 165 (150-400) K/uL MPV 10.60 (7.40-12.00) fL Add Manual Diff YES Neutrophils % (Manual) 78 (48.0-80.0) % Band Neutrophils % 2 % Lymphocytes % (Manual) 14 L (16.0-40.0) % Monocytes % (Manual) 3 (0.0-15.0) % Eosinophils % (Manual) 3 (0.0-7.0) % Nucleated RBC % 0.0 /100WBC Absolute Seg Neuts 7.3 H (1.4-5.7) Band Neutrophils # 0.2 Lymphocytes # (Manual) 1.3 (0.6-2.4) Monocytes # (Manual) 0.3 (0.0-0.8) Eosinophils # (Manual) 0.3 (0.0-0.7) Nucleated RBCs # 0 K/uL INR 1.25 Sodium 135 L (136-148) mmol/L Potassium 3.3 L (3.5-5.1) mmol/L Chloride 97 L (98-107) mmol/L Carbon Dioxide 30.0 (21.0-32.0) mmol/L BUN 10 (7.0-18.0) mg/dL Creatinine 1.1 (0.8-1.3) mg/dL Est Cr Clr Drug Dosing TNP Estimated GFR (MDRD) > 60.0 ml/min Glucose 113 H (74-106) mg/dL Calcium 8.8 (8.5-10.1) mg/dL Total Bilirubin 0.7 (0.2-1.0) mg/dL AST 24 (15-37) IU/L ALT 39 (14-63) IU/L Alkaline Phosphatase 85 (46-116) U/L Troponin I < 0.050 (0.000-0.056) ng/mL Total Protein 7.0 (6.4-8.2) g/dL Albumin 2.4 L (3.4-5.0) g/dL Globulin 4.6 H (2.0-3.5) g/dL Albumin/Globulin Ratio 0.5 L (1.3-2.8) Amylase 27 (25-115) U/L Lipase 58 L (73-393) U/L Urine Color Urine Appearance Urine pH (5.0-8.0) Ur Specific [place] (1.001-1.035) Urine Protein (NEGATIVE) mg/dL Urine Glucose (UA) (NEGATIVE) mg/dL Urine Ketones (NEGATIVE) mg/dL Urine Occult Blood (NEGATIVE) Urine Nitrite (NEGATIVE) Urine Bilirubin (NEGATIVE) Urine Urobilinogen (<2.0) EU/dL Ur Leukocyte Esterase (NEGATIVE) Urine RBC (0-2/HPF) Urine WBC (0-5/HPF) Ur Epithelial Cells (NONE-FEW) Urine Bacteria (NEGATIVE) 01/26/18 Range/Units 17:11 WBC (4.0-11.0) K/uL RBC (4.50-5.90) M/uL Hgb (13.0-17.0) g/dL Hct (38.0-50.0) % MCV (80.0-98.0) fL MCH (27.0-32.0) pg MCHC (31.0-37.0) g/dL RDW Std Deviation (28.0-62.0) fl RDW Coeff of Christiano (11.0-15.0) % Plt Count (150-400) K/uL MPV (7.40-12.00) fL Add Manual Diff Neutrophils % (Manual) (48.0-80.0) % Band Neutrophils % % Lymphocytes % (Manual) (16.0-40.0) % Monocytes % (Manual) (0.0-15.0) % Eosinophils % (Manual) (0.0-7.0) % Nucleated RBC % /100WBC Absolute Seg Neuts (1.4-5.7) Band Neutrophils # Lymphocytes # (Manual) (0.6-2.4) Monocytes # (Manual) (0.0-0.8) Eosinophils # (Manual) (0.0-0.7) Nucleated RBCs # K/uL INR Sodium (136-148) mmol/L Potassium (3.5-5.1) mmol/L Chloride (98-107) mmol/L Carbon Dioxide (21.0-32.0) mmol/L BUN (7.0-18.0) mg/dL Creatinine (0.8-1.3) mg/dL Est Cr Clr Drug Dosing Estimated GFR (MDRD) ml/min Glucose (74-106) mg/dL Calcium (8.5-10.1) mg/dL Total Bilirubin (0.2-1.0) mg/dL AST (15-37) IU/L ALT (14-63) IU/L Alkaline Phosphatase (46-116) U/L Troponin I (0.000-0.056) ng/mL Total Protein (6.4-8.2) g/dL Albumin (3.4-5.0) g/dL Globulin (2.0-3.5) g/dL Albumin/Globulin Ratio (1.3-2.8) Amylase (25-115) U/L Lipase (73-393) U/L Urine Color YELLOW Urine Appearance CLEAR Urine pH 6.0 (5.0-8.0) Ur Specific [place] 1.010 (1.001-1.035) Urine Protein NEGATIVE (NEGATIVE) mg/dL Urine Glucose (UA) NEGATIVE (NEGATIVE) mg/dL Urine Ketones NEGATIVE (NEGATIVE) mg/dL Urine Occult Blood SMALL H (NEGATIVE) Urine Nitrite NEGATIVE (NEGATIVE) Urine Bilirubin NEGATIVE (NEGATIVE) Urine Urobilinogen 0.2 (<2.0) EU/dL Ur Leukocyte Esterase NEGATIVE (NEGATIVE) Urine RBC 0-2 (0-2/HPF) Urine WBC 0-1 (0-5/HPF) Ur Epithelial Cells RARE (NONE-FEW) Urine Bacteria RARE (NEGATIVE) Meds: Medications Generic Name Dose Route Start Last Admin Trade Name Freq PRN Reason Stop Dose Admin Sodium Chloride 10 ml 01/26/18 15:38 Saline Flush FLUSH ASDIRECTED PRN Keep Vein Open Sodium Chloride 2.5 ml 01/26/18 15:38 Saline Flush FLUSH ASDIRECTED PRN Keep Vein Open Discontinued Medications Generic Name Dose Route Start Last Admin Trade Name Freq PRN Reason Stop Dose Admin Albuterol/Ipratropium 3 ml 01/26/18 16:03 01/26/18 17:10 Duoneb 3.0-0.5 Mg/3 Ml NEB 01/26/18 16:04 3 ml ONETIME ONE Administration Departure - Departure Time of Disposition: 17:41 Disposition: Home, Self-Care 01 Condition: Good Clinical Impression: Hypoxia - Discharge Information Prescriptions: Amoxicillin/Potassium Clav [Augmentin 834-125 Tablet] 1 each PO BID #20 tablet Referrals: PCP,None [Primary Care Provider] - Forms: ED Department Discharge Additional Instructions: The following information is given to patients seen in the emergency department who are being discharged to home. This information is to outline your options for follow-up care. We provide all patients seen in our emergency department with a follow-up referral. The need for follow-up, as well as the timing and circumstances, are variable depending upon the specifics of your emergency department visit. If you don't have a primary care physician on staff, we will provide you with a referral. We always advise you to contact your personal physician following an emergency department visit to inform them of the circumstance of the visit and for follow-up with them and/or the need for any referrals to a consulting specialist. The emergency department will also refer you to a specialist when appropriate. This referral assures that you have the opportunity for followup care with a specialist. All of these measure are taken in an effort to provide you with optimal care, which includes your followup. Under all circumstances we always encourage you to contact your private physician who remains a resource for coordinating your care. When calling for followup care, please make the office aware that this follow-up is from your recent emergency room visit. If for any reason you are refused follow-up, please contact the [facility] emergency department at and asked to speak to the emergency department charge nurse. You have low oxygen with any movement and at rest Oxygen has been ordered for you to take home Augmentin for continued opacities in your lung/pneumonia Follow-up with your primary care provider Dr. Badillo see Follow-up in chemotherapy as scheduled Return to the emergency department should you worsening symptomology - My Orders Last 24 Hours: My Active Orders 01/26/18 15:38 EKG Documentation Completion [RC] STAT Oxygen Therapy, ED [RC] ASDIRECTED Sodium Chloride 0.9% [Saline Flush] 10 ml FLUSH ASDIRECTED PRN Sodium Chloride 0.9% [Saline Flush] 2.5 ml FLUSH ASDIRECTED PRN Saline Lock Insert [OM.PC] Stat 01/26/18 15:39 Chest 2V [CR] Stat 01/26/18 16:03 RT Aerosol Therapy [RC] ASDIRECTED 01/26/18 17:11 UA W/MICROSCOPIC [URIN] Stat 01/26/18 17:14 CULTURE URINE [RM] Stat - Assessment/Plan Last 24 Hours: My Active Orders 01/26/18 15:38 EKG Documentation Completion [RC] STAT Oxygen Therapy, ED [RC] ASDIRECTED Sodium Chloride 0.9% [Saline Flush] 10 ml FLUSH ASDIRECTED PRN Sodium Chloride 0.9% [Saline Flush] 2.5 ml FLUSH ASDIRECTED PRN Saline Lock Insert [OM.PC] Stat 01/26/18 15:39 Chest 2V [CR] Stat 01/26/18 16:03 RT Aerosol Therapy [RC] ASDIRECTED 01/26/18 17:11 UA W/MICROSCOPIC [URIN] Stat 01/26/18 17:14 CULTURE URINE [RM] Stat
[2018-01-26 15:32] VITALS: BP 133/76
[2018-01-26] MEDS ORDERED: Sodium Chloride 0.9% 2.5 ML Syringe FLUSH PRN (15:38)
[2018-01-26] MEDS ORDERED: Sodium Chloride 0.9% 10 ML Syringe FLUSH PRN (15:38)
[2018-01-26] MEDS ORDERED: Albuterol/Ipratropium 3.0-0.5 MG/3 ML Neb Soln NEB ONE (16:03)
[2018-01-26 16:43] LABS: CHLORIDE,CL 97 mmol/L (98-107); SODIUM,NA 135 mmol/L (136-148)
--- NOTE | 2018-01-27 15:06 | CR ---
EXAM DATE: 01/26/18 PATIENT'S AGE: 57 Patient: JOSELUIS ENRIQUEZ Facility: [place], [place] Site . Site : [id number] Study: XRay Chest [id number]/[id number] 5:15:50 PM Ordering Physician: Doctor Lomas Final Report: INDICATION: Low oxygen saturation TECHNIQUE: Chest 2 views. COMPARISON: January 23, 2018 FINDINGS: Normal cardiac size. Persistent patchy opacity in the right perihilar region and right lower lobe with small right pleural effusion. Calcified granuloma in the left upper lobe. The left lung and pleural space are otherwise clear. No acute osseous abnormality. Surgical hardware projects over the lower cervical spine. IMPRESSION: Persistent patchy opacities in the right lung with right pleural effusion. Appearance is unchanged compared to the prior exam. Consider chest CT for further evaluation if clinically indicated. Dictated by Rola Barker MD @ Jan 26 2018 5:23PM (Electronic Signature) Report Signed by Proxy. LUL
== END 2018-01-26 18:44 | disposition home or self-care (01) ==
LOC: MW.ED 15:24
DX: R09.02 Hypoxemia (principal); Z79.899 Other long term (current) drug therapy; Z88.2 Allergy status to sulfonamides
CPT/HCPCS: 36415; 71046; 71046-26; 80053; 81001; 82150; 83690; 84484; 85025; 85610; 87086; 93005; 94640; 99284-25

== ENCOUNTER 2018-10-19 11:42 | Emergency (ER) | payer OTHER ==
[2018-10-19] MEDS ORDERED: Aspirin 81 MG Tab.Chew PO ONE (11:45)
[2018-10-19] MEDS ORDERED: Sodium Chloride 0.9% 1,000 ML IV ONE (11:45)
[2018-10-19 11:52] VITALS: BP 119/49
[2018-10-19 12:34] LABS: CHLORIDE,CL 105 mmol/L (98-107); SODIUM,NA 141 mmol/L (136-148)
--- NOTE | 2018-10-19 12:47 | CR ---
EXAMINATION: Portable chest radiograph. HISTORY: Shortness of breath. TECHNIQUE: 09/20/2018 FINDINGS: The trachea is midline. The cardiomediastinal silhouette is stable with prominent. Hilar soft tissue and right infrahilar soft tissue prominence. There is likely a developing left basilar infiltrate. No pleural effusion or pneumothorax. Old calcified granulomatous disease. Osseous structures appear unremarkable. IMPRESSION: 1. Probable developing left basilar infiltrate. 2. Stable perihilar soft tissue prominence.
[2018-10-19] MEDS ORDERED: Iopamidol 755 MG/ML 500 ML Multipack Bottle IVPUSH ONE (14:54)
--- NOTE | 2018-10-19 15:15 | CT ---
EXAMINATION: CTA chest HISTORY: Chest pain COMPARISON: 01/13/2018 TECHNIQUE: Axial CT imaging obtained through the chest following the administration of 50 mL of Isovue-370 in the right antecubital fossa. Coronal and sagittal reconstructions obtained. FINDINGS: Minimal right pleural effusion. Grossly stable Perihilar soft tissue prominence. There is a right superior mediastinal mass again noted, measuring 3.7 x 3 cm, previously measuring 3.3 x 2.5 cm. No axillary lymphadenopathy. The heart is normal in size without a pericardial effusion. Thoracic aorta is normal in caliber. The main and central pulmonary arteries are patent. Central airways are clear. Mild left basilar atelectasis. Old granulomatous disease. Visualized images of the upper abdomen appear normal. No suspicious osseous epiglottis identified. IMPRESSION: 1. Mildly enlarging right superior mediastinal mass. 2. Grossly stable perihilar soft tissue prominence bilaterally. 3. No pulmonary embolism or definite acute cardiopulmonary finding.
--- NOTE | 2018-10-19 15:26 | EDM.PDOC ---
ED HPI GENERAL MEDICAL PROBLEM - General Chief Complaint: Chest Pain Stated Complaint: CHEST PAINS Time Seen by Provider: 10/19/18 15:23 Source of Information: Reports: Patient - History of Present Illness INITIAL COMMENTS - FREE TEXT/NARRATIVE: HISTORY AND PHYSICAL: History of present illness: Patient presents with history of chest pain, chest pain is on the right lower rib margins he does have a history of multiple myeloma previous fractures associated with this He is worried today about PE with the chest pain is d-dimer was positive we did end up doing CTA which was completely normal Is otherwise in no distress no fever nausea vomiting chills sweats no chest pain shortness breath headache patient about a urine symptoms Review of systems: As per history of present illness and below otherwise all systems reviewed and negative. Past medical history: As per history of present illness and as reviewed below otherwise noncontributory. Surgical history: As per history of present illness and as reviewed below otherwise noncontributory. Social history: No reported history of drug or alcohol abuse. Family history: As per history of present illness and as reviewed below otherwise noncontributory. Physical exam: HEENT: Atraumatic, normocephalic, pupils reactive, negative for conjunctival pallor or scleral icterus, mucous membranes moist, throat clear, neck supple, nontender, trachea midline. Lungs: Clear to auscultation, breath sounds equal bilaterally, chest nontenderOn the left is tender along the right lower rib margins . Heart: S1S2, regular, negative for clicks, rubs, or JVD. Abdomen: Soft, nondistended, nontender. Negative for masses or hepatosplenomegaly. Negative for costovertebral tenderness. Pelvis: Stable nontender. Genitourinary: Deferred. Rectal: Deferred. Extremities: Atraumatic, negative for cords or calf pain. Neurovascular unremarkable. Neuro: Awake, alert, oriented. Cranial nerves II through XII unremarkable. Cerebellum unremarkable. Motor and sensory unremarkable throughout. Exam nonfocal. Diagnostics: [BC CMP are EKG Chest 1 view CTA chest ] Therapeutics: [ continue current oncology treatments Follow-up with primary care as needed ] Impression: [ chest wall pain right lower rib margins chronic history of baseline] Definitive disposition and diagnosis as appropriate pending reevaluation and review of above. chest Pain Score (Numeric/FACES): 4 - Related Data Allergies Allergy/AdvReac Type Severity Reaction Status Date / Time Sulfa (Sulfonamide Allergy Rash Verified 01/26/18 15:40 Antibiotics) Home Meds: Home Meds Acyclovir [Zovirax] 400 mg PO BID 10/08/15 [History] Ipratropium/Albuterol Sulfate [IJD: DuoNeb 3.0-0.5 MG/3 ML] 3 ml NEB QID [History] oxyCODONE 5 - 10 mg PO Q6H PRN 12/09/17 [History] Cholecalciferol (Vitamin D3) [Vitamin D3] 5,000 unit PO DAILY 01/23/18 [History] Multivitamin with Minerals [Multiple Vitamin] 1 tab PO BID 01/23/18 [History] Apixaban [Eliquis] 2.5 mg PO BID 01/26/18 [History] Dexamethasone 4 mg PO DAILY 10/19/18 [History] Ondansetron [Zofran Odt] 8 mg SL 10/19/18 [History] Penicillin V Potassium 500 mg PO BID 10/19/18 [History] Pomalidomide [Pomalyst] 4 mg PO DAILY 10/19/18 [History] Past Medical History Cardiovascular History: Reports: Heart Failure, High Cholesterol Respiratory History: Reports: Sleep Apnea, SOB Other Respiratory History: "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" Gastrointestinal History: Reports: None Genitourinary History: Reports: None Musculoskeletal History: Reports: Arthritis Psychiatric History: Reports: None Endocrine/Metabolic History: Reports: Obesity/BMI 30+ Hematologic History: Reports: None Immunologic History: 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 Transplant Oncologic (Cancer) History: Reports: Other (See Below) Other Oncologic History: multiple myeloma - Infectious Disease History Infectious Disease History: Reports: Chicken Pox - Past Surgical History Head Surgeries/Procedures: Reports: None Neurological Surgical History: Reports: Other (See Below) Other Neurological Surgeries/Procedures: "neck surgery" Musculoskeletal Surgical History: Reports: Hip Replacement, Other (See Below) Social & Family History - Family History Family Medical History: Noncontributory - Tobacco Use Smoking Status *Q: Never Smoker - Caffeine Use Caffeine Use: Reports: Coffee - Recreational Drug Use Recreational Drug Use: No - Living Situation & Occupation Living situation: Reports: Occupation: Employed ED ROS GENERAL - Review of Systems Review Of Systems: See Below ED EXAM, GENERAL - Physical Exam Exam: See Below Course - Vital Signs Last Recorded V/S: Last Vital Signs Temp 96.6 F 10/19/18 11:48 Pulse 72 10/19/18 11:48 Resp 20 10/19/18 11:48 BP 119/49 L 10/19/18 11:48 Pulse Ox 97 10/19/18 11:48 - Orders/Labs/Meds Orders: Active Orders 24 hr Category Date Time Status EKG Documentation Completion [RC] STAT Care 10/19/18 11:45 Active Labs: Laboratory Tests 10/19/18 10/19/18 10/19/18 Range/Units 11:55 11:55 11:55 WBC 4.79 (4.0-11.0) K/uL RBC 3.65 L (4.50-5.90) M/uL Hgb 11.1 L (13.0-17.0) g/dL Hct 33.8 L (38.0-50.0) % MCV 92.6 (80.0-98.0) fL MCH 30.4 (27.0-32.0) pg MCHC 32.8 (31.0-37.0) g/dL RDW Std Deviation 53.3 (28.0-62.0) fl RDW Coeff of Christiano 16 H (11.0-15.0) % Plt Count 178 (150-400) K/uL MPV 9.10 (7.40-12.00) fL Add Manual Diff YES Neutrophils % (Manual) 55 (48.0-80.0) % Lymphocytes % (Manual) 25 (16.0-40.0) % Monocytes % (Manual) 11 (0.0-15.0) % Eosinophils % (Manual) 9 H (0.0-7.0) % Nucleated RBC % 0.0 /100WBC Absolute Seg Neuts 2.6 (1.4-5.7) Lymphocytes # (Manual) 1.2 (0.6-2.4) Monocytes # (Manual) 0.5 (0.0-0.8) Eosinophils # (Manual) 0.4 (0.0-0.7) Nucleated RBCs # 0 K/uL INR 1.03 D-Dimer, Quantitative (0.0-0.50) mg/L FEU Sodium 141 (136-148) mmol/L Potassium 4.0 (3.5-5.1) mmol/L Chloride 105 (98-107) mmol/L Carbon Dioxide 27.8 (21.0-32.0) mmol/L BUN 10 (7.0-18.0) mg/dL Creatinine 1.2 (0.8-1.3) mg/dL Est Cr Clr Drug Dosing 82.15 mL/min Estimated GFR (MDRD) > 60.0 ml/min Glucose 98 (74-106) mg/dL Calcium 9.0 (8.5-10.1) mg/dL Total Bilirubin 0.4 (0.2-1.0) mg/dL AST 14 L (15-37) IU/L ALT 17 (14-63) IU/L Alkaline Phosphatase 83 (46-116) U/L Troponin I < 0.050 (0.000-0.056) ng/mL Total Protein 8.1 (6.4-8.2) g/dL Albumin 2.7 L (3.4-5.0) g/dL Globulin 5.4 H (2.6-4.0) g/dL Albumin/Globulin Ratio 0.5 L (0.9-1.6) Lipase 68 L (73-393) U/L Urine Color Urine Appearance Urine pH (5.0-8.0) Ur Specific Mart (1.001-1.035) Urine Protein (NEGATIVE) mg/dL Urine Glucose (UA) (NEGATIVE) mg/dL Urine Ketones (NEGATIVE) mg/dL Urine Occult Blood (NEGATIVE) Urine Nitrite (NEGATIVE) Urine Bilirubin (NEGATIVE) Urine Urobilinogen (<2.0) EU/dL Ur Leukocyte Esterase (NEGATIVE) 10/19/18 10/19/18 Range/Units 11:55 13:07 WBC (4.0-11.0) K/uL RBC (4.50-5.90) M/uL Hgb (13.0-17.0) g/dL Hct (38.0-50.0) % MCV (80.0-98.0) fL MCH (27.0-32.0) pg MCHC (31.0-37.0) g/dL RDW Std Deviation (28.0-62.0) fl RDW Coeff of Christiano (11.0-15.0) % Plt Count (150-400) K/uL MPV (7.40-12.00) fL Add Manual Diff Neutrophils % (Manual) (48.0-80.0) % Lymphocytes % (Manual) (16.0-40.0) % Monocytes % (Manual) (0.0-15.0) % Eosinophils % (Manual) (0.0-7.0) % Nucleated RBC % /100WBC Absolute Seg Neuts (1.4-5.7) Lymphocytes # (Manual) (0.6-2.4) Monocytes # (Manual) (0.0-0.8) Eosinophils # (Manual) (0.0-0.7) Nucleated RBCs # K/uL INR D-Dimer, Quantitative 1.05 H (0.0-0.50) mg/L FEU Sodium (136-148) mmol/L Potassium (3.5-5.1) mmol/L Chloride (98-107) mmol/L Carbon Dioxide (21.0-32.0) mmol/L BUN (7.0-18.0) mg/dL Creatinine (0.8-1.3) mg/dL Est Cr Clr Drug Dosing mL/min Estimated GFR (MDRD) ml/min Glucose (74-106) mg/dL Calcium (8.5-10.1) mg/dL Total Bilirubin (0.2-1.0) mg/dL AST (15-37) IU/L ALT (14-63) IU/L Alkaline Phosphatase (46-116) U/L Troponin I (0.000-0.056) ng/mL Total Protein (6.4-8.2) g/dL Albumin (3.4-5.0) g/dL Globulin (2.6-4.0) g/dL Albumin/Globulin Ratio (0.9-1.6) Lipase (73-393) U/L Urine Color YELLOW Urine Appearance CLEAR Urine pH 8.0 (5.0-8.0) Ur Specific Mart 1.010 (1.001-1.035) Urine Protein NEGATIVE (NEGATIVE) mg/dL Urine Glucose (UA) NEGATIVE (NEGATIVE) mg/dL Urine Ketones NEGATIVE (NEGATIVE) mg/dL Urine Occult Blood NEGATIVE (NEGATIVE) Urine Nitrite NEGATIVE (NEGATIVE) Urine Bilirubin NEGATIVE (NEGATIVE) Urine Urobilinogen 0.2 (<2.0) EU/dL Ur Leukocyte Esterase NEGATIVE (NEGATIVE) Meds: Medications Discontinued Medications Generic Name Dose Route Start Last Admin Trade Name Deborah PRN Reason Stop Dose Admin Aspirin 324 mg 10/19/18 11:45 10/19/18 14:03 Aspirin PO 10/19/18 11:46 Not Given ONETIME ONE Sodium Chloride 1,000 mls @ 999 mls/hr 10/19/18 11:45 10/19/18 12:42 Normal Saline IV 10/19/18 12:45 999 mls/hr STAT ONE Administration Iopamidol 50 ml 10/19/18 14:54 10/19/18 14:54 Isovue Multipack-370 (76%) IVPUSH 10/19/18 14:55 50 ml ONETIME ONE Administration Departure - Departure Time of Disposition: 15:25 Disposition: Home, Self-Care 01 Condition: Good Clinical Impression: Chest wall pain - Discharge Information Referrals: PCP,Unknown [Primary Care Provider] - Additional Instructions: The following information is given to patients seen in the emergency department who are being discharged to home. This information is to outline your options for follow-up care. We provide all patients seen in our emergency department with a follow-up referral. The need for follow-up, as well as the timing and circumstances, are variable depending upon the specifics of your emergency department visit. If you don't have a primary care physician on staff, we will provide you with a referral. We always advise you to contact your personal physician following an emergency department visit to inform them of the circumstance of the visit and for follow-up with them and/or the need for any referrals to a consulting specialist. The emergency department will also refer you to a specialist when appropriate. This referral assures that you have the opportunity for follow-up care with a specialist. All of these measure are taken in an effort to provide you with optimal care, which includes your follow-up. Under all circumstances we always encourage you to contact your private physician who remains a resource for coordinating your care. When calling for follow-up care, please make the office aware that this follow-up is from your recent emergency room visit. If for any reason you are refused follow-up, please contact the [facility] emergency department at and asked to speak to the emergency department charge nurse. - My Orders Last 24 Hours: My Active Orders 10/19/18 11:45 EKG Documentation Completion [RC] STAT - Assessment/Plan Last 24 Hours: My Active Orders 10/19/18 11:45 EKG Documentation Completion [RC] STAT
== END 2018-10-19 15:27 | disposition home or self-care (01) ==
LOC: MW.ED 11:42
DX: R07.89 Other chest pain (principal); E66.9 Obesity, unspecified; Z88.2 Allergy status to sulfonamides; Z88.8 Allergy status to other drugs, medicaments and biological substances
CPT/HCPCS: 36415; 71045; 71275; 80053; 81003; 83690; 84484; 85025; 85379; 85610; 93005; 96360; 96361; 99285; J7040; Q9967

== ENCOUNTER 2019-03-26 20:47 | Observation (INO) | payer OTHER ==
[2019-03-26] MEDS ORDERED: Sodium Chloride 0.9% 10 ML Syringe FLUSH PRN (20:55)
[2019-03-26] MEDS ORDERED: Albuterol/Ipratropium 3.0-0.5 MG/3 ML Neb Soln NEB ONE (20:55)
[2019-03-26] MEDS ORDERED: Sodium Chloride 0.9% 2.5 ML Syringe FLUSH PRN (20:55)
--- NOTE | 2019-03-26 21:01 | EDM.PDOC ---
ED HPI GENERAL MEDICAL PROBLEM - General Chief Complaint: Chest Pain Stated Complaint: SHORTNESS OF BREATH AND CHEST PAIN Time Seen by Provider: 03/26/19 20:49 - History of Present Illness INITIAL COMMENTS - FREE TEXT/NARRATIVE: HISTORY AND PHYSICAL: History of present illness: This 58-year-old white male with history of multiple myeloma pulmonary embolism is currently on eliquis patient states he has a history of chronic lung disease. He presents today with shortness of breath worse than his baseline as well as some vague chest discomfort. Patient denies fever chills nausea vomiting palpitations or diaphoresis Review of systems: As per history of present illness and below otherwise all systems reviewed and negative. Past medical history: As per history of present illness and as reviewed below otherwise noncontributory. Surgical history: As per history of present illness and as reviewed below otherwise noncontributory. Social history: No reported history of drug or alcohol abuse. Family history: As per history of present illness and as reviewed below otherwise noncontributory. Physical exam: HEENT: Atraumatic, normocephalic, pupils reactive, negative for conjunctival pallor or scleral icterus, mucous membranes moist, throat clear, neck supple, nontender, trachea midline. Lungs: Slightly coarse diminished, breath sounds equal bilaterally, chest nontender. Heart: S1S2, regular, negative for clicks, rubs, or JVD. Abdomen: Soft, nondistended, nontender. Negative for masses or hepatosplenomegaly. Negative for costovertebral tenderness. Pelvis: Stable nontender. Genitourinary: Deferred. Rectal: Deferred. Extremities: Atraumatic, negative for cords or calf pain. Neurovascular unremarkable. Neuro: Awake, alert, oriented. Cranial nerves II through XII unremarkable. Cerebellum unremarkable. Motor and sensory unremarkable throughout. Exam nonfocal. Diagnostics: CBC CMP troponin PT/INR chest x-ray EKG Therapeutics: IV O2 monitor albuterol ipratropium nebulizer aspirin 324 mg by mouth Impression: #1 chest pain #2 dyspnea #3 history of multiple myeloma #4 history of pulmonary Definitive disposition and diagnosis as appropriate pending reevaluation and review of above. - Related Data Allergies Allergy/AdvReac Type Severity Reaction Status Date / Time Sulfa (Sulfonamide Allergy Rash Verified 03/26/19 21:20 Antibiotics) Home Meds: Home Meds Ipratropium/Albuterol Sulfate [IJD: DuoNeb 3.0-0.5 MG/3 ML] 3 ml NEB QID [History] oxyCODONE 5 - 10 mg PO Q6H PRN 12/09/17 [History] Cholecalciferol (Vitamin D3) [Vitamin D3] 5,000 unit PO DAILY 01/23/18 [History] Apixaban [Eliquis] 5 mg PO BID 01/26/18 [History] dexAMETHasone [Dexamethasone] 40 mg PO ASDIRECTED 10/19/18 [History] Dapsone 1 cap PO DAILY 03/26/19 [History] Gabapentin [Neurontin] 800 mg PO BID 03/26/19 [History] Past Medical History Cardiovascular History: Reports: Heart Failure, High Cholesterol Respiratory History: Reports: Sleep Apnea, SOB Other Respiratory History: "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" Gastrointestinal History: Reports: None Genitourinary History: Reports: None Musculoskeletal History: Reports: Arthritis Psychiatric History: Reports: None Endocrine/Metabolic History: Reports: Obesity/BMI 30+ Hematologic History: Reports: None Immunologic History: 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 Transplant Oncologic (Cancer) History: Reports: Other (See Below) Other Oncologic History: multiple myeloma - Infectious Disease History Infectious Disease History: Reports: Chicken Pox - Past Surgical History Head Surgeries/Procedures: Reports: None Neurological Surgical History: Reports: Other (See Below) Other Neurological Surgeries/Procedures: "neck surgery" Musculoskeletal Surgical History: Reports: Hip Replacement, Other (See Below) Social & Family History - Family History Family Medical History: Noncontributory - Caffeine Use Caffeine Use: Reports: Coffee - Living Situation & Occupation Living situation: Reports: Occupation: Employed ED ROS GENERAL - Review of Systems Review Of Systems: ROS reveals no pertinent complaints other than HPI. ED EXAM, GENERAL - Physical Exam Exam: See Below (See dictation) Course - Vital Signs Last Recorded V/S: Last Vital Signs Temp 37.9 C 03/26/19 21:51 Pulse 86 03/26/19 21:50 Resp 13 03/26/19 21:50 BP 120/62 03/26/19 21:50 Pulse Ox 91 L 03/26/19 21:50 - Orders/Labs/Meds Orders: Active Orders 24 hr Category Date Time Status Cardiac Monitoring [RC] . DIRECTED Care 03/26/19 20:55 Active EKG Documentation Completion [RC] STAT Care 03/26/19 20:55 Active Oxygen Therapy [RC] ASDIRECTED Care 03/26/19 20:55 Active RT Aerosol Therapy [RC] ASDIRECTED Care 03/26/19 20:55 Active CULTURE BLOOD [BC] Stat Lab 03/26/19 21:23 Received CULTURE BLOOD [BC] Stat Lab 03/26/19 21:33 Received Levofloxacin/Dextrose 5%-Water [Levaquin in D5W 750 MG/ Med 03/26/19 21:41 Active 150 ML] 750 mg Premix Bag 1 bag IV ONETIME Sodium Chloride 0.9% [Saline Flush] Med 03/26/19 20:55 Active 10 ml FLUSH ASDIRECTED PRN Sodium Chloride 0.9% [Saline Flush] Med 03/26/19 20:55 Active 2.5 ml FLUSH ASDIRECTED PRN Blood Culture x2 Reflex Set [OM.PC] Stat Oth 03/26/19 21:13 Ordered Saline Lock Insert [OM.PC] Stat Oth 03/26/19 20:55 Ordered Medication Orders Levofloxacin/Dextrose 750 mg/ (Premix) 150 mls @ 100 mls/hr IV ONETIME ONE Stop: 03/26/19 23:10 Last Admin: 03/26/19 21:50 Dose: 100 mls/hr Sodium Chloride (Saline Flush) 10 ml FLUSH ASDIRECTED PRN PRN Reason: Keep Vein Open Last Admin: 03/26/19 21:04 Dose: 10 ml Sodium Chloride (Saline Flush) 2.5 ml FLUSH ASDIRECTED PRN PRN Reason: Keep Vein Open Last Admin: 03/26/19 21:04 Dose: 2.5 ml Labs: Laboratory Tests 03/26/19 03/26/19 03/26/19 Range/Units 20:50 20:50 20:50 WBC 17.66 H (4.0-11.0) K/uL RBC 2.76 L (4.50-5.90) M/uL Hgb 9.5 L (13.0-17.0) g/dL Hct 29.6 L (38.0-50.0) % MCV 107.2 H (80.0-98.0) fL MCH 34.4 H (27.0-32.0) pg MCHC 32.1 (31.0-37.0) g/dL RDW Std Deviation 57.6 (28.0-62.0) fl RDW Coeff of Christiano 15 (11.0-15.0) % Plt Count 203 (150-400) K/uL MPV 10.10 (7.40-12.00) fL Neut % (Auto) 64.5 (48.0-80.0) % Lymph % (Auto) 4.1 L (16.0-40.0) % Buchanan % (Auto) 8.4 (0.0-15.0) % Eos % (Auto) 22.9 H (0.0-7.0) % Baso % (Auto) 0.1 (0.0-1.5) % Neut # (Auto) 11.4 H (1.4-5.7) K/uL Lymph # (Auto) 0.7 (0.6-2.4) K/uL Buchanan # (Auto) 1.5 H (0.0-0.8) K/uL Eos # (Auto) 4.0 H (0.0-0.7) K/uL Baso # (Auto) 0.0 (0.0-0.1) K/uL Nucleated RBC % 0.0 /100WBC Nucleated RBCs # 0 K/uL INR 1.10 Lactate (0.20-2.00) mmol/L Sodium 136 (136-148) mmol/L Potassium 4.1 (3.5-5.1) mmol/L Chloride 102 (98-107) mmol/L Carbon Dioxide 26.9 (21.0-32.0) mmol/L BUN 15 (7.0-18.0) mg/dL Creatinine 1.1 (0.8-1.3) mg/dL Est Cr Clr Drug Dosing 89.62 mL/min Estimated GFR (MDRD) > 60.0 ml/min Glucose 116 H (74-106) mg/dL Calcium 8.6 (8.5-10.1) mg/dL Total Bilirubin 0.5 (0.2-1.0) mg/dL AST 21 (15-37) IU/L ALT 20 (14-63) IU/L Alkaline Phosphatase 82 (46-116) U/L Troponin I < 0.050 (0.000-0.056) ng/mL B-Natriuretic Peptide (<100) PG/ML Total Protein 6.8 (6.4-8.2) g/dL Albumin 3.1 L (3.4-5.0) g/dL Globulin 3.7 (2.6-4.0) g/dL Albumin/Globulin Ratio 0.8 L (0.9-1.6) Urine Color Urine Appearance Urine pH (5.0-8.0) Ur Specific [place] (1.001-1.035) Urine Protein (NEGATIVE) mg/dL Urine Glucose (UA) (NEGATIVE) mg/dL Urine Ketones (NEGATIVE) mg/dL Urine Occult Blood (NEGATIVE) Urine Nitrite (NEGATIVE) Urine Bilirubin (NEGATIVE) Urine Urobilinogen (<2.0) EU/dL Ur Leukocyte Esterase (NEGATIVE) Urine RBC (0-2/HPF) Urine WBC (0-5/HPF) Ur Epithelial Cells (NONE-FEW) Urine Bacteria (NEGATIVE) 03/26/19 03/26/19 03/26/19 Range/Units 20:50 21:23 21:45 WBC (4.0-11.0) K/uL RBC (4.50-5.90) M/uL Hgb (13.0-17.0) g/dL Hct (38.0-50.0) % MCV (80.0-98.0) fL MCH (27.0-32.0) pg MCHC (31.0-37.0) g/dL RDW Std Deviation (28.0-62.0) fl RDW Coeff of Christiano (11.0-15.0) % Plt Count (150-400) K/uL MPV (7.40-12.00) fL Neut % (Auto) (48.0-80.0) % Lymph % (Auto) (16.0-40.0) % Buchanan % (Auto) (0.0-15.0) % Eos % (Auto) (0.0-7.0) % Baso % (Auto) (0.0-1.5) % Neut # (Auto) (1.4-5.7) K/uL Lymph # (Auto) (0.6-2.4) K/uL Buchanan # (Auto) (0.0-0.8) K/uL Eos # (Auto) (0.0-0.7) K/uL Baso # (Auto) (0.0-0.1) K/uL Nucleated RBC % /100WBC Nucleated RBCs # K/uL INR Lactate 1.1 (0.20-2.00) mmol/L Sodium (136-148) mmol/L Potassium (3.5-5.1) mmol/L Chloride (98-107) mmol/L Carbon Dioxide (21.0-32.0) mmol/L BUN (7.0-18.0) mg/dL Creatinine (0.8-1.3) mg/dL Est Cr Clr Drug Dosing mL/min Estimated GFR (MDRD) ml/min Glucose (74-106) mg/dL Calcium (8.5-10.1) mg/dL Total Bilirubin (0.2-1.0) mg/dL AST (15-37) IU/L ALT (14-63) IU/L Alkaline Phosphatase (46-116) U/L Troponin I (0.000-0.056) ng/mL B-Natriuretic Peptide 80 (<100) PG/ML Total Protein (6.4-8.2) g/dL Albumin (3.4-5.0) g/dL Globulin (2.6-4.0) g/dL Albumin/Globulin Ratio (0.9-1.6) Urine Color YELLOW Urine Appearance CLEAR Urine pH 7.5 (5.0-8.0) Ur Specific [place] 1.015 (1.001-1.035) Urine Protein TRACE H (NEGATIVE) mg/dL Urine Glucose (UA) NEGATIVE (NEGATIVE) mg/dL Urine Ketones NEGATIVE (NEGATIVE) mg/dL Urine Occult Blood NEGATIVE (NEGATIVE) Urine Nitrite NEGATIVE (NEGATIVE) Urine Bilirubin NEGATIVE (NEGATIVE) Urine Urobilinogen 0.2 (<2.0) EU/dL Ur Leukocyte Esterase NEGATIVE (NEGATIVE) Urine RBC 0-1 (0-2/HPF) Urine WBC 0-1 (0-5/HPF) Ur Epithelial Cells RARE (NONE-FEW) Urine Bacteria RARE (NEGATIVE) Meds: Medications Generic Name Dose Route Start Last Admin Trade Name Freq PRN Reason Stop Dose Admin Levofloxacin/Dextrose 750 mg/ 150 mls @ 100 mls/hr 03/26/19 21:41 03/26/19 21 :50 Premix IV 03/26/19 23:10 100 mls/hr ONETIME ONE Administration Sodium Chloride 10 ml 03/26/19 20:55 03/26/19 21:04 Saline Flush FLUSH 10 ml ASDIRECTED PRN Administration Keep Vein Open Sodium Chloride 2.5 ml 03/26/19 20:55 03/26/19 21:04 Saline Flush FLUSH 2.5 ml ASDIRECTED PRN Administration Keep Vein Open Discontinued Medications Generic Name Dose Route Start Last Admin Trade Name Deborah PRN Reason Stop Dose Admin Acetaminophen 1,000 mg 03/26/19 21:14 03/26/19 21:21 Tylenol Extra Strength PO 03/26/19 21:15 1,000 mg ONETIME ONE Administration Albuterol/Ipratropium 3 ml 03/26/19 20:55 03/26/19 21:12 Duoneb 3.0-0.5 Mg/3 Ml NEB 03/26/19 20:56 3 ml ONETIME ONE Administration Aspirin 324 mg 03/26/19 21:13 03/26/19 21:21 Aspirin PO 03/26/19 21:14 324 mg ONETIME ONE Administration Departure - Departure Time of Disposition: 22:49 Disposition: Refer to Observation Condition: Fair Clinical Impression: Fever Dyspnea Qualifiers: Dyspnea type: shortness of breath Qualified Code(s): R06.02 - Shortness of breath Pneumonia Qualifiers: Pneumonia type: due to unspecified organism Laterality: left Lung location: lower lobe of lung Qualified Code(s): J18.1 - Lobar pneumonia, unspecified organism - Discharge Information Referrals: Luciano Mann MD [Primary Care Provider] - Forms: ED Department Discharge - My Orders Last 24 Hours: My Active Orders 03/26/19 20:55 Cardiac Monitoring [RC] . DIRECTED EKG Documentation Completion [RC] STAT Oxygen Therapy [RC] ASDIRECTED RT Aerosol Therapy [RC] ASDIRECTED Sodium Chloride 0.9% [Saline Flush] 10 ml FLUSH ASDIRECTED PRN Sodium Chloride 0.9% [Saline Flush] 2.5 ml FLUSH ASDIRECTED PRN Saline Lock Insert [OM.PC] Stat 03/26/19 21:13 Blood Culture x2 Reflex Set [OM.PC] Stat 03/26/19 21:23 CULTURE BLOOD [BC] Stat 03/26/19 21:33 CULTURE BLOOD [BC] Stat 03/26/19 21:41 Levofloxacin/Dextrose 5%-Water [Levaquin in D5W 750 MG/150 ML] 750 mg Premix Bag 1 bag IV ONETIME - Assessment/Plan Last 24 Hours: My Active Orders 03/26/19 20:55 Cardiac Monitoring [RC] . DIRECTED EKG Documentation Completion [RC] STAT Oxygen Therapy [RC] ASDIRECTED RT Aerosol Therapy [RC] ASDIRECTED Sodium Chloride 0.9% [Saline Flush] 10 ml FLUSH ASDIRECTED PRN Sodium Chloride 0.9% [Saline Flush] 2.5 ml FLUSH ASDIRECTED PRN Saline Lock Insert [OM.PC] Stat 03/26/19 21:13 Blood Culture x2 Reflex Set [OM.PC] Stat 03/26/19 21:23 CULTURE BLOOD [BC] Stat 03/26/19 21:33 CULTURE BLOOD [BC] Stat 03/26/19 21:41 Levofloxacin/Dextrose 5%-Water [Levaquin in D5W 750 MG/150 ML] 750 mg Premix Bag 1 bag IV ONETIME
[2019-03-26] MEDS ORDERED: Aspirin 81 MG Tab.Chew PO ONE (21:13)
[2019-03-26] MEDS ORDERED: Acetaminophen 500 MG Tab PO ONE (21:14)
[2019-03-26 21:40] LABS: CHLORIDE,CL 102 mmol/L (98-107); SODIUM,NA 136 mmol/L (136-148)
[2019-03-26] MEDS ORDERED: Levofloxacin/Dextrose 5%-Water 750 MG in Premix Bag 1 BAG IV ONE (21:41)
--- NOTE | 2019-03-26 21:52 | CR ---
INDICATION: Chest pain, shortness of breath TECHNIQUE: Chest radiograph 1 view COMPARISON: 10/19/2018 FINDINGS: Severe degradation of image quality noted due to body habitus. Mediastinum: The mediastinum is normal in appearance. The heart silhouette is normal in size and morphology. Lung: Right hilar consolidation is noted without change. Increased consolidation is seen in the right lung base. A stable granulomas present in the left midlung zone. Mild left basilar atelectasis is seen. No sign of pleural effusion seen. No pneumothorax is identified. IMPRESSION: 1. Right hilar consolidation is noted without change. Increased consolidation is seen in the right lung base. Correlation with clinical history is recommended to exclude radiation-induced cicatricial atelectasis. Dictated by Cayden Osorio MD @ 03/26/2019 9:49:39 PM Dictated by: Cayden Osorio MD @ 03/26/2019 21:49:46 (Electronically Signed)
[2019-03-27 06:45] LABS: CHLORIDE,CL 105 mmol/L (98-107); SODIUM,NA 137 mmol/L (136-148)
[2019-03-27 07:43] VITALS: BP 111/57
--- NOTE | 2019-03-27 08:54 | PCM.HP.2 ---
H&P History of Present Illness - General Date of Service: 03/27/19 Admit Problem/Dx: Admission Diagnosis/Problem Admission Diagnosis/Problem Pneumonia Source of Information: Patient History Limitations: Reports: No Limitations - History of Present Illness Initial Comments - Free Text/Narative: Patient is a 58-year-old male presenting yesterday with increasing shortness of breath and lower extremity swelling with pain. Patient does have a pertinent past medical history of multiple myeloma for which she is taking Elmquis daily. Patient also was given home oxygen however has not used it for the past year secondary to no longer requiring supplemental oxygen. 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 States over the past 2-3 days she has noticed some increasing shortness of breath even at rest noticed some bilateral lower extremity swelling with pain with pain predominantly in the left lower extremity. Patient denies any prolonged immobilization or new medications. She has had a history of blood clots for which she was placed on Elmquist. ED course: Chest x-ray showed right hilar consolidation most likely secondary to pneumonitis and a possible right lower lobe pneumonia. Patient was started on Levaquin 750. Chest pain was worked up with troponin; negative. Patient was also given some oxygen and started off at 2 L nasal cannula. Bedside a.m.: Patient seen at bedside. Endorses no new complaints. States shortness of breath and vague chest discomfort have resolved for the most part. However is now on 1 L nasal cannula. Mentions to me being on a experimental therapeutic trial of Car-T; Tagged immunoglobulin/t-cell therapy for multiple myeloma; last infusion January 2019. States he has stopped smoking since 2000. Denies any other new complaints or discomfort at this time. Onset of Symptoms: Reports: Gradual chest Pain Score (Numeric/FACES): 4 - Related Data Allergies/Adverse Reactions: Allergies Allergy/AdvReac Type Severity Reaction Status Date / Time Sulfa (Sulfonamide Allergy Rash Verified 03/26/19 23:51 Antibiotics) Home Medications: Home Meds Ipratropium/Albuterol Sulfate [IJD: DuoNeb 3.0-0.5 MG/3 ML] 3 ml NEB TID [History] oxyCODONE 5 - 10 mg PO Q6H PRN 12/09/17 [History] Cholecalciferol (Vitamin D3) [Vitamin D3] 5,000 unit PO DAILY 01/23/18 [History] Apixaban [Eliquis] 5 mg PO BID 01/26/18 [History] dexAMETHasone [Dexamethasone] 40 mg PO WEEKLY 10/19/18 [History] Acyclovir 400 mg PO BID 03/26/19 [History] Dapsone 1 tab PO DAILY 03/26/19 [History] Furosemide 20 mg PO DAILY 03/26/19 [History] Gabapentin [Neurontin] 800 mg PO BID 03/26/19 [History] Past Medical History Cardiovascular History: Reports: Blood Clots/VTE/DVT, Heart Failure, High Cholesterol Respiratory History: Reports: PE, Sleep Apnea, SOB Other Respiratory History: "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" Gastrointestinal History: Reports: None Genitourinary History: Reports: None Musculoskeletal History: Reports: Arthritis Neurological History: Reports: Neuropathy, Peripheral Psychiatric History: Reports: None Endocrine/Metabolic History: Reports: Obesity/BMI 30+ Hematologic History: Reports: Other (See Below) Other Hematologic History: Platelett infusion. Immunologic History: 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 Transplant Oncologic (Cancer) History: Reports: Other (See Below) Other Oncologic History: multiple myeloma - Infectious Disease History Infectious Disease History: Reports: Chicken Pox - Past Surgical History Head Surgeries/Procedures: Reports: None HEENT Surgical History: Reports: Oral Surgery, Other (See Below) Other HEENT Surgeries/Procedures: Had all teeth removed for cancer treatments Neurological Surgical History: Reports: Other (See Below) Other Neurological Surgeries/Procedures: "neck surgery" Musculoskeletal Surgical History: Reports: Hip Replacement Social & Family History - Family History Family Medical History: Noncontributory - Tobacco Use Smoking Status *Q: Former Smoker Used Tobacco, but Quit: Yes Month/Year Tobacco Last Used: 2000 Second Hand Smoke Exposure: No - Caffeine Use Caffeine Use: Reports: Coffee - Alcohol Use Days Per Week of Alcohol Use: 1 Number of Drinks Per Day: 3 Total Drinks Per Week: 3 - Recreational Drug Use Recreational Drug Use: No - Living Situation & Occupation Living situation: Reports: Occupation: Employed H&P Review of Systems - Review of Systems: Review Of Systems: See Below General: Reports: No Symptoms. Denies: Fever, Chills, Malaise, Weakness, Fatigue HEENT: Reports: No Symptoms Pulmonary: Reports: Cough. Denies: Shortness of Breath, Wheezing, Pleuritic Chest Pain, Sputum Cardiovascular: Reports: No Symptoms, Edema (Lower extremity edema bilaterally improving since last night). Denies: Chest Pain, Palpitations, Dyspnea on Exertion Gastrointestinal: Reports: No Symptoms. Denies: Abdominal Pain, Constipation, Diarrhea Genitourinary: Reports: No Symptoms Musculoskeletal: Reports: No Symptoms Skin: Reports: No Symptoms Psychiatric: Reports: No Symptoms Neurological: Reports: No Symptoms Exam - Exam Exam: See Below - Vital Signs Vital Signs: Last Vital Signs Temp 96.9 F 03/27/19 07:42 Pulse 62 03/27/19 07:42 Resp 18 03/27/19 07:42 BP 111/57 L 03/27/19 07:42 Pulse Ox 97 03/27/19 07:42 Weight: 333 lb 8 oz - Exam Quality Assessment: Supplemental Oxygen General: Alert, Oriented HEENT: Conjunctiva Clear, EOMI Neck: Supple, Trachea Midline Lungs: Decreased Breath Sounds (Decreased breath sounds in right lung field; mild crackle at left lung base at end of expiration) Cardiovascular: Regular Rate, Regular Rhythm, Other (Lower extremity swelling bilaterally with redness; no posterior calf tenderness, excoriation over her right lower extremity anterior aspect. Negative Homans sign, pulses intact) GI/Abdominal Exam: Normal Bowel Sounds, Soft, Non-Tender Back Exam: Normal Inspection Extremities: Normal Inspection Skin: Warm, Dry, Intact Neurological: Cranial Nerves Intact Neuro Extensive - Mental Status: Alert, Oriented x3, Normal Mood/Affect, Normal Cognition Neuro Extensive - Motor, Sensory, Reflexes: CN II-XII Intact - Patient Data Lab Results Last 24 hrs: Laboratory Results - last 24 hr 03/26/19 03/26/19 03/26/19 Range/Units 20:50 20:50 20:50 WBC 17.66 H (4.0-11.0) K/uL RBC 2.76 L (4.50-5.90) M/uL Hgb 9.5 L (13.0-17.0) g/dL Hct 29.6 L (38.0-50.0) % MCV 107.2 H (80.0-98.0) fL MCH 34.4 H (27.0-32.0) pg MCHC 32.1 (31.0-37.0) g/dL RDW Std Deviation 57.6 (28.0-62.0) fl RDW Coeff of Christiano 15 (11.0-15.0) % Plt Count 203 (150-400) K/uL MPV 10.10 (7.40-12.00) fL Neut % (Auto) 64.5 (48.0-80.0) % Lymph % (Auto) 4.1 L (16.0-40.0) % [place] % (Auto) 8.4 (0.0-15.0) % Eos % (Auto) 22.9 H (0.0-7.0) % Baso % (Auto) 0.1 (0.0-1.5) % Neut # (Auto) 11.4 H (1.4-5.7) K/uL Lymph # (Auto) 0.7 (0.6-2.4) K/uL [place] # (Auto) 1.5 H (0.0-0.8) K/uL Eos # (Auto) 4.0 H (0.0-0.7) K/uL Baso # (Auto) 0.0 (0.0-0.1) K/uL Add Manual Diff Neutrophils % (Manual) (48.0-80.0) % Band Neutrophils % % Lymphocytes % (Manual) (16.0-40.0) % Monocytes % (Manual) (0.0-15.0) % Eosinophils % (Manual) (0.0-7.0) % Nucleated RBC % 0.0 /100WBC Absolute Seg Neuts (1.4-5.7) Band Neutrophils # Lymphocytes # (Manual) (0.6-2.4) Monocytes # (Manual) (0.0-0.8) Eosinophils # (Manual) (0.0-0.7) Nucleated RBCs # 0 K/uL INR 1.10 Lactate (0.20-2.00) mmol/L Sodium 136 (136-148) mmol/L Potassium 4.1 (3.5-5.1) mmol/L Chloride 102 (98-107) mmol/L Carbon Dioxide 26.9 (21.0-32.0) mmol/L BUN 15 (7.0-18.0) mg/dL Creatinine 1.1 (0.8-1.3) mg/dL Est Cr Clr Drug Dosing 89.62 mL/min Estimated GFR (MDRD) > 60.0 ml/min Glucose 116 H (74-106) mg/dL Calcium 8.6 (8.5-10.1) mg/dL Total Bilirubin 0.5 (0.2-1.0) mg/dL AST 21 (15-37) IU/L ALT 20 (14-63) IU/L Alkaline Phosphatase 82 (46-116) U/L Troponin I < 0.050 (0.000-0.056) ng/mL B-Natriuretic Peptide (<100) PG/ML Total Protein 6.8 (6.4-8.2) g/dL Albumin 3.1 L (3.4-5.0) g/dL Globulin 3.7 (2.6-4.0) g/dL Albumin/Globulin Ratio 0.8 L (0.9-1.6) Urine Color Urine Appearance Urine pH (5.0-8.0) Ur Specific [place] (1.001-1.035) Urine Protein (NEGATIVE) mg/dL Urine Glucose (UA) (NEGATIVE) mg/dL Urine Ketones (NEGATIVE) mg/dL Urine Occult Blood (NEGATIVE) Urine Nitrite (NEGATIVE) Urine Bilirubin (NEGATIVE) Urine Urobilinogen (<2.0) EU/dL Ur Leukocyte Esterase (NEGATIVE) Urine RBC (0-2/HPF) Urine WBC (0-5/HPF) Ur Epithelial Cells (NONE-FEW) Urine Bacteria (NEGATIVE) 03/26/19 03/26/19 03/26/19 Range/Units 20:50 21:23 21:45 WBC (4.0-11.0) K/uL RBC (4.50-5.90) M/uL Hgb (13.0-17.0) g/dL Hct (38.0-50.0) % MCV (80.0-98.0) fL MCH (27.0-32.0) pg MCHC (31.0-37.0) g/dL RDW Std Deviation (28.0-62.0) fl RDW Coeff of Christiano (11.0-15.0) % Plt Count (150-400) K/uL MPV (7.40-12.00) fL Neut % (Auto) (48.0-80.0) % Lymph % (Auto) (16.0-40.0) % [place] % (Auto) (0.0-15.0) % Eos % (Auto) (0.0-7.0) % Baso % (Auto) (0.0-1.5) % Neut # (Auto) (1.4-5.7) K/uL Lymph # (Auto) (0.6-2.4) K/uL [place] # (Auto) (0.0-0.8) K/uL Eos # (Auto) (0.0-0.7) K/uL Baso # (Auto) (0.0-0.1) K/uL Add Manual Diff Neutrophils % (Manual) (48.0-80.0) % Band Neutrophils % % Lymphocytes % (Manual) (16.0-40.0) % Monocytes % (Manual) (0.0-15.0) % Eosinophils % (Manual) (0.0-7.0) % Nucleated RBC % /100WBC Absolute Seg Neuts (1.4-5.7) Band Neutrophils # Lymphocytes # (Manual) (0.6-2.4) Monocytes # (Manual) (0.0-0.8) Eosinophils # (Manual) (0.0-0.7) Nucleated RBCs # K/uL INR Lactate 1.1 (0.20-2.00) mmol/L Sodium (136-148) mmol/L Potassium (3.5-5.1) mmol/L Chloride (98-107) mmol/L Carbon Dioxide (21.0-32.0) mmol/L BUN (7.0-18.0) mg/dL Creatinine (0.8-1.3) mg/dL Est Cr Clr Drug Dosing mL/min Estimated GFR (MDRD) ml/min Glucose (74-106) mg/dL Calcium (8.5-10.1) mg/dL Total Bilirubin (0.2-1.0) mg/dL AST (15-37) IU/L ALT (14-63) IU/L Alkaline Phosphatase (46-116) U/L Troponin I (0.000-0.056) ng/mL B-Natriuretic Peptide 80 (<100) PG/ML Total Protein (6.4-8.2) g/dL Albumin (3.4-5.0) g/dL Globulin (2.6-4.0) g/dL Albumin/Globulin Ratio (0.9-1.6) Urine Color YELLOW Urine Appearance CLEAR Urine pH 7.5 (5.0-8.0) Ur Specific [place] 1.015 (1.001-1.035) Urine Protein TRACE H (NEGATIVE) mg/dL Urine Glucose (UA) NEGATIVE (NEGATIVE) mg/dL Urine Ketones NEGATIVE (NEGATIVE) mg/dL Urine Occult Blood NEGATIVE (NEGATIVE) Urine Nitrite NEGATIVE (NEGATIVE) Urine Bilirubin NEGATIVE (NEGATIVE) Urine Urobilinogen 0.2 (<2.0) EU/dL Ur Leukocyte Esterase NEGATIVE (NEGATIVE) Urine RBC 0-1 (0-2/HPF) Urine WBC 0-1 (0-5/HPF) Ur Epithelial Cells RARE (NONE-FEW) Urine Bacteria RARE (NEGATIVE) 03/27/19 03/27/19 Range/Units 06:15 06:15 WBC 16.37 H (4.0-11.0) K/uL RBC 2.47 L (4.50-5.90) M/uL Hgb 8.5 L (13.0-17.0) g/dL Hct 26.7 L (38.0-50.0) % MCV 108.1 H (80.0-98.0) fL MCH 34.4 H (27.0-32.0) pg MCHC 31.8 (31.0-37.0) g/dL RDW Std Deviation 58.4 (28.0-62.0) fl RDW Coeff of Christiano 15 (11.0-15.0) % Plt Count 158 (150-400) K/uL MPV 9.20 (7.40-12.00) fL Neut % (Auto) (48.0-80.0) % Lymph % (Auto) (16.0-40.0) % [place] % (Auto) (0.0-15.0) % Eos % (Auto) (0.0-7.0) % Baso % (Auto) (0.0-1.5) % Neut # (Auto) (1.4-5.7) K/uL Lymph # (Auto) (0.6-2.4) K/uL [place] # (Auto) (0.0-0.8) K/uL Eos # (Auto) (0.0-0.7) K/uL Baso # (Auto) (0.0-0.1) K/uL Add Manual Diff YES Neutrophils % (Manual) 62 (48.0-80.0) % Band Neutrophils % 6 % Lymphocytes % (Manual) 8 L (16.0-40.0) % Monocytes % (Manual) 5 (0.0-15.0) % Eosinophils % (Manual) 19 H (0.0-7.0) % Nucleated RBC % 0.0 /100WBC Absolute Seg Neuts 10.1 H (1.4-5.7) Band Neutrophils # 1.0 Lymphocytes # (Manual) 1.3 (0.6-2.4) Monocytes # (Manual) 0.8 (0.0-0.8) Eosinophils # (Manual) 3.1 H (0.0-0.7) Nucleated RBCs # 0 K/uL INR Lactate (0.20-2.00) mmol/L Sodium 137 (136-148) mmol/L Potassium 3.9 (3.5-5.1) mmol/L Chloride 105 (98-107) mmol/L Carbon Dioxide 27.0 (21.0-32.0) mmol/L BUN 13 (7.0-18.0) mg/dL Creatinine 1.0 (0.8-1.3) mg/dL Est Cr Clr Drug Dosing 98.58 mL/min Estimated GFR (MDRD) > 60.0 ml/min Glucose 108 H (74-106) mg/dL Calcium 8.6 (8.5-10.1) mg/dL Total Bilirubin (0.2-1.0) mg/dL AST (15-37) IU/L ALT (14-63) IU/L Alkaline Phosphatase (46-116) U/L Troponin I (0.000-0.056) ng/mL B-Natriuretic Peptide (<100) PG/ML Total Protein (6.4-8.2) g/dL Albumin (3.4-5.0) g/dL Globulin (2.6-4.0) g/dL Albumin/Globulin Ratio (0.9-1.6) Urine Color Urine Appearance Urine pH (5.0-8.0) Ur Specific [place] (1.001-1.035) Urine Protein (NEGATIVE) mg/dL Urine Glucose (UA) (NEGATIVE) mg/dL Urine Ketones (NEGATIVE) mg/dL Urine Occult Blood (NEGATIVE) Urine Nitrite (NEGATIVE) Urine Bilirubin (NEGATIVE) Urine Urobilinogen (<2.0) EU/dL Ur Leukocyte Esterase (NEGATIVE) Urine RBC (0-2/HPF) Urine WBC (0-5/HPF) Ur Epithelial Cells (NONE-FEW) Urine Bacteria (NEGATIVE) Result Diagrams: 03/27/19 06:15 03/27/19 06:15 Problem List Initiated/Reviewed/Updated: Yes Orders Last 24hrs: Active Orders 24 hr Category Date Time Status Patient Status [ADT] Stat ADT 03/26/19 22:52 Active Cardiac Monitoring [RC] Q8H Care 03/26/19 20:55 Active EKG 12 Lead [EKG Documentation Completion] [RC] STAT Care 03/26/19 21:55 Active Oxygen Therapy [RC] ASDIRECTED Care 03/26/19 20:55 Active RT Aerosol Therapy [RC] ASDIRECTED Care 03/26/19 20:55 Active Telemetry Monitoring [Cardiac Monitoring] [RC] . Care 03/26/19 23:55 Active DIRECTED Regular Diet [DIET] Diet 03/27/19 Breakfast Active CULTURE BLOOD [BC] Stat Lab 03/26/19 21:23 Received CULTURE BLOOD [BC] Stat Lab 03/26/19 21:33 Received Levofloxacin/Dextrose 5%-Water [Levaquin in D5W 750 MG/ Med 03/27/19 21:00 Active 150 ML] 750 mg Premix Bag 1 bag IV Q24H Sodium Chloride 0.9% [Saline Flush] Med 03/26/19 20:55 Active 10 ml FLUSH ASDIRECTED PRN Sodium Chloride 0.9% [Saline Flush] Med 03/26/19 20:55 Active 2.5 ml FLUSH ASDIRECTED PRN Blood Culture x2 Reflex Set [OM.PC] Stat Oth 03/26/19 21:13 Ordered Saline Lock Insert [OM.PC] Stat Oth 03/26/19 20:55 Ordered Medication Orders Levofloxacin/Dextrose 750 mg/ (Premix) 150 mls @ 100 mls/hr IV Q24H SIMONA Sodium Chloride (Saline Flush) 10 ml FLUSH ASDIRECTED PRN PRN Reason: Keep Vein Open Last Admin: 03/26/19 21:04 Dose: 10 ml Sodium Chloride (Saline Flush) 2.5 ml FLUSH ASDIRECTED PRN PRN Reason: Keep Vein Open Last Admin: 03/26/19 21:04 Dose: 2.5 ml 1. Right lower lobe community-acquired pneumonia versus worsening pneumonitis versus pulmonary embolus 2. Leukocytosis most likely secondary to #1 3. Macrocytic anemia Assessment/Plan Comment:: 1. Right lower lobe pneumonia: Continue Levaquin 750 daily; 2. Concerns for pulmonary embolus: We'll consider ordering a CTA and U/S of lower extremity . Patient is currently on eliquis however we'll consider changing to warfarin secondary to patient still having clots if positive for DVTs. May also contact Dr Mann of [facility]; pt.s physician, if eliquis failure is determined 3. Macrocytic anemia: We'll order a B12 and folate for tomorrow a.m.
[2019-03-27] MEDS ORDERED: Iopamidol 755 MG/ML 500 ML Multipack Bottle IVPUSH STA (11:28)
--- NOTE | 2019-03-27 12:03 | CT ---
INDICATION: Sudden shortness of breath ;Swelling of the leg; history of PE. COMPARISON: CT chest with intravenous contrast October 19, 2018; chest radiograph October 19, 2018 and March 26, 2019. TECHNIQUE: CT chest with intravenous contrast; coronal and sagittal reformats. FINDINGS: A 3.4 x 3.4 cm soft tissue mass right paratracheal location right lung apex; stable since October 19, 2018. Soft tissue mass right hilum with encasement of the right upper lobe bronchi; malignancy as well as radiation induced pulmonary parenchymal changes; no gross interval change when compared to October 19, 2018. Encasement of the right upper lobe pulmonary artery in the hilar mass. Calcified lymph nodes right hilum stopped the infrahilar soft tissue mass with atelectasis and consolidation right lower lobe; no gross interval change when compared to October 19, 2018. Small right-sided pleural effusion. No discrete abnormal intra pulmonary nodular densities identified otherwise. The calcified granuloma left upper lung. Normal size cardiac silhouette without any evidence of pericardial effusion. Limited CT through the upper abdomen is unremarkable. No obvious pulmonary thromboemboli. IMPRESSION: 1. No CT evidence of pulmonary thromboemboli on this CT study. 2. Encasement of the right pulmonary artery by the right hilar mass with radiation induced pulmonary parenchymal changes right upper lobe and right lower lobe. 3. Right paratracheal soft tissue mass in the right lung apex ;stable in appearance when compared to October 19, 2018. 4. No evidence of pericardial effusion. Please note that all CT scans at this facility use dose modulation, iterative reconstruction, and/or weight-based dosing when appropriate to reduce radiation dose to as low as reasonably achievable. Dictated by Di Romero MD @ Mar 27 2019 11:54AM Signed by Dr. Di Romero @ Mar 27 2019 12:02PM
--- NOTE | 2019-03-27 12:33 | US ---
INDICATION: Bilateral leg swelling Comparison: Duplex ultrasound evaluation venous system left lower extremity August 02, 2018 TECHNIQUE: A compression venous ultrasound exam was performed of both lower extremities using casillas scale imaging, color Doppler and spectral Doppler analysis. FINDINGS: Sonographic imaging of the lower extremities demonstrates normal compressibility and color Doppler venous blood flow within the common femoral, deep femoral, and proximal greater saphenous veins. Within the thighs the femoral veins are patent and compressible. At a lower level the popliteal and posterior tibial veins also show normal compressibility and color Doppler venous blood flow. IMPRESSION: Normal venous ultrasound exam. No evidence of deep vein thrombosis within either the left or right lower extremity. Dictated by Di Romero MD @ Mar 27 2019 12:29PM Signed by Dr. Di Romero @ Mar 27 2019 12:31PM
[2019-03-27] MEDS ORDERED: Levofloxacin/Dextrose 5%-Water 750 MG in Premix Bag 1 BAG IV SCH (21:00)
== END 2019-03-27 14:45 | disposition home or self-care (01) ==
LOC: MW.ED 20:47 → MW.MS 22:52
PROVIDERS: ADMIT Internal Medicine; ATTEND Internal Medicine
DX: J18.1 Lobar pneumonia, unspecified organism (principal); C90.00 Multiple myeloma not having achieved remission; I50.9 Heart failure, unspecified; E78.00 Pure hypercholesterolemia, unspecified; D53.9 Nutritional anemia, unspecified; Z88.2 Allergy status to sulfonamides; Z87.891 Personal history of nicotine dependence; Z79.01 Long term (current) use of anticoagulants; Z79.899 Other long term (current) drug therapy
CPT/HCPCS: 36415; 71045; 71275; 80048; 80053; 81001; 82607; 82746; 83605; 83880; 84484; 85025; 85610; 87040; 93005; 93970; 94640; 96365; 99285; A9270; J1956; Q9967; 99284; G0378; J7620-GY

== ENCOUNTER 2019-04-17 00:03 | Inpatient (IN) | payer OTHER ==
[2019-04-17] MEDS ORDERED: Albuterol/Ipratropium 3.0-0.5 MG/3 ML Neb Soln NEB ONE (00:14)
[2019-04-17] MEDS ORDERED: Sodium Chloride 0.9% 10 ML Syringe FLUSH PRN ×2 (00:14→02:21)
[2019-04-17] MEDS ORDERED: Sodium Chloride 0.9% 2.5 ML Syringe FLUSH PRN ×2 (00:14→02:21)
[2019-04-17] MEDS ORDERED: HYDROmorphone 1 MG/ML Syringe IVPUSH ONE (00:14)
--- NOTE | 2019-04-17 00:19 | EDM.PDOC ---
ED HPI GENERAL MEDICAL PROBLEM - General Stated Complaint: BODY PAIN ON RIGHT SIDE Time Seen by Provider: 04/17/19 00:06 - History of Present Illness INITIAL COMMENTS - FREE TEXT/NARRATIVE: HISTORY AND PHYSICAL: History of present illness: The patient is a 58 y/o male with a history of multiple myeloma neuropathy right -sided chronic pneumonitis secondary to radiation therapy and chronic pain all of which he sees providers in our oncology clinic and presents via EMS with complaints of right sided chest pain that started on Tuesday, 2 days ago and seemed to worsen this evening. The patient says that he does nebulizer treatments at home every 6 hours and he only had 2 treatments today because he said it was uncomfortable and it caused pain to take deep breaths. The patient is on chronic anticoagulation, Eliquis, and has no new leg pain or swelling. Patient is also on oxycodone 5 mg tablets to take as needed and he did take a tablet approximately 2 hours ago. He is also on dexamethasone chronically and takes 40 mg once a week and he is scheduled to go on a taper for that. According to my review of the medical records in the computer he was admitted here on March 27 for right-sided chest pain and shortness of breath and had a PE study that was negative for PE. The patient in the past has had oxygen at home to use as needed but he says now he does not have any oxygen at home. The patient denies any recent trauma and has only had a low-grade temp and no nausea or vomiting but says he has not had much of an appetite today. He says it is more painful to take a deep breath. His O2 sat per EMS was 90% on 2 L and currently it is up to 94% on 4 L. The patient denies any flank pain or urinary issues and no abdominal pain per se and points to his right chest wall in the anterior axillary line area as the place of pain but he says this is where he always ge his chronic pain as well but it seems to be worse. He denies any new cough The patient also has a history of recurrent and frequent pneumonias more on the right side due to chronic lung changes. He tells me this feels like he has pneumonia again. Review of systems: As per history of present illness and below otherwise all systems reviewed and negative. Past medical history: As per history of present illness and as reviewed below otherwise noncontributory. Surgical history: As per history of present illness and as reviewed below otherwise noncontributory. Social history: No reported history of drug or alcohol abuse. Family history: As per history of present illness and as reviewed below otherwise noncontributory. Physical exam: General: Well-developed well-nourished overweight man who is nontoxic and speaking easily in the ED without breathlessness. Vital signs are noted by me HEENT: Atraumatic, normocephalic, pupils reactive, negative for conjunctival pallor or scleral icterus, mucous membranes moist, throat clear, neck supple, nontender, trachea midline. Lungs: Clear to auscultation without wheezing or stridor but he does have diminished breath sounds in the right mid and lower lung field without work of breathing , breath sounds equal bilaterally, chest nontender.I cannot reproduce the pain on palpation nor is there any defects crepitus or deformities of the chest wall Heart: S1S2, regular, negative for clicks, rubs, or JVD. Abdomen: Soft, nondistended, nontender. Negative for masses or hepatosplenomegaly. Negative for costovertebral tenderness. Pelvis: Stable nontender. Genitourinary: Deferred. Rectal: Deferred. Extremities: Atraumatic, negative for cords or calf pain. Neurovascular unremarkable.Trace pedal edema but no leg asymmetry Neuro: Awake, alert, oriented. Cranial nerves II through XII unremarkable. Cerebellum unremarkable. Motor and sensory unremarkable throughout. Exam nonfocal. Diagnostics: EKG chest x-ray CBC CMP lipase lactic acid troponin INR blood cultures 2 Therapeutics: IV O2 monitor duo neb, Dilaudid Rocephin and Zithromax According to the computer the patient is scheduled for some therapy and our oncology clinic next week and the patient concurs that he has a new treatment scheduled for next week. Today's WBC count of 16.73 with a left shift, 70% neutrophils 13% bands and this is of the level he had his white cell count elevated to when he was admitted in March. The patient had an outpatient CBC with differential performed on April 11 which showed a WBC count of 6.7. As far as his hemoglobin today of 9.9 that is consistent with his baseline of 9-10. 0110: Case was discussed with Dr. Conte and he would like Rocephin and Zithromax to be given and an observation admission. He is aware of today's labs in comparison to prior as well as outpatient and the chest x-ray findings. I discussed testing results with the patient and admission Impression: Right chest pain, recurrent right pneumonia Definitive disposition and diagnosis as appropriate pending reevaluation and review of above. - Related Data Allergies Allergy/AdvReac Type Severity Reaction Status Date / Time Sulfa (Sulfonamide Allergy Rash Verified 04/17/19 00:34 Antibiotics) Home Meds: Home Meds Ipratropium/Albuterol Sulfate [IJD: DuoNeb 3.0-0.5 MG/3 ML] 3 ml NEB QID [History] oxyCODONE 5 mg PO Q6H PRN 12/09/17 [History] Cholecalciferol (Vitamin D3) [Vitamin D3] 5,000 unit PO DAILY 01/23/18 [History] Apixaban [Eliquis] 5 mg PO BID 01/26/18 [History] dexAMETHasone [Dexamethasone] 40 mg PO WEEKLY 10/19/18 [History] Acyclovir 400 mg PO BID 03/26/19 [History] Dapsone 1 tab PO DAILY 03/26/19 [History] Gabapentin [Neurontin] 800 mg PO BID 03/26/19 [History] Calcium Citrate 1,000 gm MC DAILY 04/17/19 [History] LORazepam 1 mg PO DAILY PRN 04/17/19 [History] Multivitamin [Multivitamins] 1 each PO DAILY 04/17/19 [History] Omeprazole 20 mg PO DAILY 04/17/19 [History] Sennosides/Docusate Sodium [Senna-S] 1 each PO DAILY 04/17/19 [History] Sildenafil Citrate 20 mg PO DAILY 04/17/19 [History] Past Medical History Cardiovascular History: Reports: Blood Clots/VTE/DVT, Heart Failure, High Cholesterol Respiratory History: Reports: PE, Sleep Apnea, SOB Other Respiratory History: "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" Gastrointestinal History: Reports: None Genitourinary History: Reports: None Musculoskeletal History: Reports: Arthritis Neurological History: Reports: Neuropathy, Peripheral Psychiatric History: Reports: None Endocrine/Metabolic History: Reports: Obesity/BMI 30+ Hematologic History: Reports: Other (See Below) Other Hematologic History: Platelett infusion. Immunologic History: 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 Transplant Oncologic (Cancer) History: Reports: Other (See Below) Other Oncologic History: multiple myeloma - Infectious Disease History Infectious Disease History: Reports: Chicken Pox - Past Surgical History Head Surgeries/Procedures: Reports: None HEENT Surgical History: Reports: Oral Surgery, Other (See Below) Other HEENT Surgeries/Procedures: Had all teeth removed for cancer treatments Neurological Surgical History: Reports: Other (See Below) Other Neurological Surgeries/Procedures: "neck surgery" Musculoskeletal Surgical History: Reports: Hip Replacement Social & Family History - Family History Family Medical History: Noncontributory - Caffeine Use Caffeine Use: Reports: Coffee - Living Situation & Occupation Living situation: Reports: Occupation: Employed ED ROS GENERAL - Review of Systems Review Of Systems: ROS reveals no pertinent complaints other than HPI. ED EXAM, GENERAL - Physical Exam Exam: See Below (See dictation) Course - Vital Signs Last Recorded V/S: Last Vital Signs Temp 37.3 C 04/17/19 00:25 Pulse 79 04/17/19 01:11 Resp 18 04/17/19 01:11 BP 126/61 04/17/19 01:11 Pulse Ox 94 L 04/17/19 01:11 - Orders/Labs/Meds Orders: Active Orders 24 hr Category Date Time Status Patient Status [ADT] Stat ADT 04/17/19 01:16 Ordered Cardiac Monitoring [RC] . DIRECTED Care 04/17/19 00:13 Active EKG Documentation Completion [RC] STAT Care 04/17/19 00:13 Active Oxygen Therapy, ED [RC] ASDIRECTED Care 04/17/19 00:13 Active Pulse Oximetry [RC] ASDIRECTED Care 04/17/19 00:13 Active RT Aerosol Therapy [RC] ASDIRECTED Care 04/17/19 00:14 Active CULTURE BLOOD [BC] Stat Lab 04/17/19 01:05 Ordered CULTURE BLOOD [BC] Stat Lab 04/17/19 01:05 Ordered Azithromycin [Zithromax] Med 04/17/19 01:15 Once 500 mg PO ONETIME ONE Sodium Chloride 0.9% [Saline Flush] Med 04/17/19 00:14 Active 10 ml FLUSH ASDIRECTED PRN Sodium Chloride 0.9% [Saline Flush] Med 04/17/19 00:14 Active 2.5 ml FLUSH ASDIRECTED PRN cefTRIAXone [Rocephin in Dextrose,Iso-Osm 2 GM/50 ML] 2 Med 04/17/19 01:15 Ordered gm Premix Bag 1 bag IV ONETIME Blood Culture x2 Reflex Set [OM.PC] Stat Oth 04/17/19 01:05 Ordered Saline Lock Insert [OM.PC] Stat Oth 04/17/19 00:13 Ordered Medication Orders Azithromycin (Zithromax) 500 mg PO ONETIME ONE Stop: 04/17/19 01:16 Ceftriaxone Sodium/Dextrose 2 (gm/ Premix) 50 mls @ 100 mls/hr IV ONETIME ONE Stop: 04/17/19 01:44 Sodium Chloride (Saline Flush) 10 ml FLUSH ASDIRECTED PRN PRN Reason: Keep Vein Open Last Admin: 04/17/19 00:23 Dose: 10 ml Sodium Chloride (Saline Flush) 2.5 ml FLUSH ASDIRECTED PRN PRN Reason: Keep Vein Open Last Admin: 04/17/19 00:23 Dose: 2.5 ml Labs: Laboratory Tests 04/17/19 04/17/19 04/17/19 Range/Units 00:02 00:02 00:02 WBC 16.73 H (4.0-11.0) K/uL RBC 2.91 L (4.50-5.90) M/uL Hgb 9.9 L (13.0-17.0) g/dL Hct 29.9 L (38.0-50.0) % MCV 102.7 H (80.0-98.0) fL MCH 34.0 H (27.0-32.0) pg MCHC 33.1 (31.0-37.0) g/dL RDW Std Deviation 52.7 (28.0-62.0) fl RDW Coeff of Christiano 15 (11.0-15.0) % Plt Count 191 (150-400) K/uL MPV 9.60 (7.40-12.00) fL Add Manual Diff YES Neutrophils % (Manual) 70 (48.0-80.0) % Band Neutrophils % 13 % Lymphocytes % (Manual) 14 L (16.0-40.0) % Monocytes % (Manual) 3 (0.0-15.0) % Absolute Seg Neuts 11.7 H (1.4-5.7) Band Neutrophils # 2.2 Lymphocytes # (Manual) 2.3 (0.6-2.4) Monocytes # (Manual) 0.5 (0.0-0.8) INR 1.16 Lactate (0.20-2.00) mmol/L Sodium 133 L (136-148) mmol/L Potassium 4.1 (3.5-5.1) mmol/L Chloride 99 (98-107) mmol/L Carbon Dioxide 23.9 (21.0-32.0) mmol/L BUN 18 (7.0-18.0) mg/dL Creatinine 1.3 (0.8-1.3) mg/dL Est Cr Clr Drug Dosing TNP Estimated GFR (MDRD) 57.1 ml/min Glucose 115 H (74-106) mg/dL Calcium 9.6 (8.5-10.1) mg/dL Total Bilirubin 1.3 H (0.2-1.0) mg/dL AST 14 L (15-37) IU/L ALT 17 (14-63) IU/L Alkaline Phosphatase 84 (46-116) U/L Troponin I < 0.050 (0.000-0.056) ng/mL Total Protein 7.7 (6.4-8.2) g/dL Albumin 2.7 L (3.4-5.0) g/dL Globulin 5.0 H (2.6-4.0) g/dL Albumin/Globulin Ratio 0.5 L (0.9-1.6) Lipase 45 L (73-393) U/L 04/17/19 Range/Units 00:02 WBC (4.0-11.0) K/uL RBC (4.50-5.90) M/uL Hgb (13.0-17.0) g/dL Hct (38.0-50.0) % MCV (80.0-98.0) fL MCH (27.0-32.0) pg MCHC (31.0-37.0) g/dL RDW Std Deviation (28.0-62.0) fl RDW Coeff of Christiano (11.0-15.0) % Plt Count (150-400) K/uL MPV (7.40-12.00) fL Add Manual Diff Neutrophils % (Manual) (48.0-80.0) % Band Neutrophils % % Lymphocytes % (Manual) (16.0-40.0) % Monocytes % (Manual) (0.0-15.0) % Absolute Seg Neuts (1.4-5.7) Band Neutrophils # Lymphocytes # (Manual) (0.6-2.4) Monocytes # (Manual) (0.0-0.8) INR Lactate 1.2 (0.20-2.00) mmol/L Sodium (136-148) mmol/L Potassium (3.5-5.1) mmol/L Chloride (98-107) mmol/L Carbon Dioxide (21.0-32.0) mmol/L BUN (7.0-18.0) mg/dL Creatinine (0.8-1.3) mg/dL Est Cr Clr Drug Dosing Estimated GFR (MDRD) ml/min Glucose (74-106) mg/dL Calcium (8.5-10.1) mg/dL Total Bilirubin (0.2-1.0) mg/dL AST (15-37) IU/L ALT (14-63) IU/L Alkaline Phosphatase (46-116) U/L Troponin I (0.000-0.056) ng/mL Total Protein (6.4-8.2) g/dL Albumin (3.4-5.0) g/dL Globulin (2.6-4.0) g/dL Albumin/Globulin Ratio (0.9-1.6) Lipase (73-393) U/L Meds: Medications Generic Name Dose Route Start Last Admin Trade Name Freq PRN Reason Stop Dose Admin Azithromycin 500 mg 04/17/19 01:15 Zithromax PO 04/17/19 01:16 ONETIME ONE Ceftriaxone Sodium/Dextrose 2 50 mls @ 100 mls/hr 04/17/19 01:15 gm/ Premix IV 04/17/19 01:44 ONETIME ONE Sodium Chloride 10 ml 04/17/19 00:14 04/17/19 00:23 Saline Flush FLUSH 10 ml ASDIRECTED PRN Administration Keep Vein Open Sodium Chloride 2.5 ml 04/17/19 00:14 04/17/19 00:23 Saline Flush FLUSH 2.5 ml ASDIRECTED PRN Administration Keep Vein Open Discontinued Medications Generic Name Dose Route Start Last Admin Trade Name Freq PRN Reason Stop Dose Admin Albuterol/Ipratropium 3 ml 04/17/19 00:14 04/17/19 00:23 Duoneb 3.0-0.5 Mg/3 Ml NEB 04/17/19 00:15 3 ml ONETIME ONE Administration Hydromorphone HCl 1 mg 04/17/19 00:14 04/17/19 00:23 Dilaudid IVPUSH 04/17/19 00:15 1 mg ONETIME ONE Administration Departure - Departure Time of Disposition: 01:17 Disposition: Refer to Observation Condition: Good Clinical Impression: Recurrent pneumonia - Discharge Information Referrals: PCP,None [Primary Care Provider] - - My Orders Last 24 Hours: My Active Orders 04/17/19 00:13 Cardiac Monitoring [RC] . DIRECTED EKG Documentation Completion [RC] STAT Oxygen Therapy, ED [RC] ASDIRECTED Pulse Oximetry [RC] ASDIRECTED Saline Lock Insert [OM.PC] Stat 04/17/19 00:14 RT Aerosol Therapy [RC] ASDIRECTED Sodium Chloride 0.9% [Saline Flush] 10 ml FLUSH ASDIRECTED PRN Sodium Chloride 0.9% [Saline Flush] 2.5 ml FLUSH ASDIRECTED PRN 04/17/19 01:05 CULTURE BLOOD [BC] Stat CULTURE BLOOD [BC] Stat Blood Culture x2 Reflex Set [OM.PC] Stat 04/17/19 01:15 Azithromycin [Zithromax] 500 mg PO ONETIME ONE cefTRIAXone [Rocephin in Dextrose,Iso-Osm 2 GM/50 ML] 2 gm Premix Bag 1 bag IV ONETIME 04/17/19 01:16 Patient Status [ADT] Stat - Assessment/Plan Last 24 Hours: My Active Orders 04/17/19 00:13 Cardiac Monitoring [RC] . DIRECTED EKG Documentation Completion [RC] STAT Oxygen Therapy, ED [RC] ASDIRECTED Pulse Oximetry [RC] ASDIRECTED Saline Lock Insert [OM.PC] Stat 04/17/19 00:14 RT Aerosol Therapy [RC] ASDIRECTED Sodium Chloride 0.9% [Saline Flush] 10 ml FLUSH ASDIRECTED PRN Sodium Chloride 0.9% [Saline Flush] 2.5 ml FLUSH ASDIRECTED PRN 04/17/19 01:05 CULTURE BLOOD [BC] Stat CULTURE BLOOD [BC] Stat Blood Culture x2 Reflex Set [OM.PC] Stat 04/17/19 01:15 Azithromycin [Zithromax] 500 mg PO ONETIME ONE cefTRIAXone [Rocephin in Dextrose,Iso-Osm 2 GM/50 ML] 2 gm Premix Bag 1 bag IV ONETIME 04/17/19 01:16 Patient Status [ADT] Stat
[2019-04-17 00:55] LABS: BLOOD UREA NITROGEN,BUN 18 mg/dL (7.0-18.0); CARBON DIOXIDE,CO2 23.9 mmol/L (21.0-32.0); CHLORIDE,CL 99 mmol/L (98-107); GLUCOSE RANDOM 115 mg/dL (74-106); LIPASE 45 U/L (73-393); POTASSIUM,K 4.1 mmol/L (3.5-5.1); SODIUM,NA 133 mmol/L (136-148)
--- NOTE | 2019-04-17 01:09 | CR ---
INDICATION: Right-sided chest pain. COMPARISON: 03/26/2019 chest radiograph. FINDINGS/IMPRESSION: Moderate interval increase in right hilar and perihilar opacity which may represent mass, lymphadenopathy, pneumonia, or a combination. New small right pleural effusion. Left lung remains grossly clear aside from minimal left basilar stranding consistent with atelectasis. Stable cardiac configuration. Lower cervical spine postop changes, as before. No acute osseous findings. Dictated by Aung Manjarrez MD @ 04/17/2019 1:07:37 AM Dictated by: Aung Manjarrez MD @ 04/17/2019 01:08:04 (Electronically Signed)
[2019-04-17] MEDS ORDERED: Azithromycin 250 MG Tab PO ONE (01:15)
[2019-04-17] MEDS ORDERED: cefTRIAXone 2 GM in Premix Bag 1 BAG IV ONE (01:15)
[2019-04-17] MEDS: oxyCODONE 5 MG Tab PO PRN ×4 (03:17→22:20)
[2019-04-17 07:02] LABS: CARBON DIOXIDE,CO2 27.6 mmol/L (21.0-32.0); POTASSIUM,K 4.2 mmol/L (3.5-5.1)
--- NOTE | 2019-04-17 08:32 | PCM.HP.2 ---
H&P History of Present Illness - General Date of Service: 04/17/19 Admit Problem/Dx: Admission Diagnosis/Problem Admission Diagnosis/Problem Recurrent pneumonia Source of Information: Patient - History of Present Illness Initial Comments - Free Text/Narative: Patient is 58-year-old male with a past medical history of multiple myeloma with neuropathy, chronic right-sided radiation-induced pneumonitis, peripheral neuropathy, presenting with 2 days of progressive right-sided chest pain and discomfort with pain on deep inspiration; patient denies any fevers or chills however does endorse spending more time outside on Tuesday afternoon packing his trailer for the winter; after which he noticed symptoms of his chest discomfort and pain. Patient used his nebulizer however was having some increased pain with deep inspiration, proceeded to [facility] ED. Patient denies any lower extremity swelling or redness or pain, denies any palpitations, denies any headache or dizziness, denies any diarrhea or constipation, however does endorse a reduced appetite secondary to cough and right-sided congestion. Patient denies any sick contacts or recent travel outside of the country. Does have a recent previous admission on March 26, 2019: For chest pain and lower extremity swelling with redness; ultimately DVT was ruled out; most likely a cellulitis with a pneumonia; discharged on Levaquin; patient endorse feeling better after his Levaquin course and completed. Denies any symptoms in the interim between previous admission in the past 2 days. Denies smoking however does endorse some alcohol consumption but not in excess. pt. does have a chronic right axillary type pain x 2-3 months ; most likely related to his MM and chronic pneumonitis; however, per patient, oncology nor pulmonology have been able to tell him the exact cause (again per patient). States his chronic pain medication of oxycodone has not been able to keep his pain controlled. Right Chest Pain Score (Numeric/FACES): 4 - Related Data Allergies/Adverse Reactions: Allergies Allergy/AdvReac Type Severity Reaction Status Date / Time Sulfa (Sulfonamide Allergy Rash Verified 04/17/19 02:21 Antibiotics) Home Medications: Home Meds Ipratropium/Albuterol Sulfate [IJD: DuoNeb 3.0-0.5 MG/3 ML] 3 ml NEB QID PRN 06/18 [History] oxyCODONE 5 mg PO Q6H PRN 12/09/17 [History] Cholecalciferol (Vitamin D3) [Vitamin D3] 5,000 unit PO DAILY 01/23/18 [History] Apixaban [Eliquis] 5 mg PO BID 01/26/18 [History] dexAMETHasone [Dexamethasone] 40 mg PO WEEKLY 10/19/18 [History] Acyclovir 400 mg PO BID 03/26/19 [History] Dapsone 1 tab PO DAILY 03/26/19 [History] Gabapentin [Neurontin] 800 mg PO BID 03/26/19 [History] Calcium Citrate 1,000 gm MC DAILY 04/17/19 [History] LORazepam 1 mg PO BEDTIME PRN 04/17/19 [History] Multivitamin [Multivitamins] 1 each PO DAILY 04/17/19 [History] Omeprazole 20 mg PO DAILY PRN 04/17/19 [History] Sennosides/Docusate Sodium [Senna-S] 1 each PO DAILY 04/17/19 [History] Sildenafil Citrate 20 mg PO DAILY 04/17/19 [History] Past Medical History Cardiovascular History: Reports: Blood Clots/VTE/DVT, Heart Failure, High Cholesterol Respiratory History: Reports: PE, Sleep Apnea, SOB Other Respiratory History: "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" Gastrointestinal History: Reports: None Genitourinary History: Reports: None Musculoskeletal History: Reports: Arthritis Neurological History: Reports: Neuropathy, Peripheral Psychiatric History: Reports: None Endocrine/Metabolic History: Reports: Obesity/BMI 30+ Hematologic History: Reports: Other (See Below) Other Hematologic History: Platelett infusion. Immunologic History: 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 Transplant Oncologic (Cancer) History: Reports: Other (See Below) Other Oncologic History: multiple myeloma - Infectious Disease History Infectious Disease History: Reports: Chicken Pox - Past Surgical History Head Surgeries/Procedures: Reports: None HEENT Surgical History: Reports: Oral Surgery, Other (See Below) Other HEENT Surgeries/Procedures: Had all teeth removed for cancer treatments Neurological Surgical History: Reports: Other (See Below) Other Neurological Surgeries/Procedures: "neck surgery" Musculoskeletal Surgical History: Reports: Hip Replacement Social & Family History - Family History Family Medical History: Noncontributory - Tobacco Use Smoking Status *Q: Former Smoker Years of Tobacco use: 30 Used Tobacco, but Quit: Yes Month/Year Tobacco Last Used: 2000 Second Hand Smoke Exposure: No - Caffeine Use Caffeine Use: Reports: Coffee - Alcohol Use Days Per Week of Alcohol Use: 4 Number of Drinks Per Day: 1 Total Drinks Per Week: 4 - Recreational Drug Use Recreational Drug Use: No - Living Situation & Occupation Living situation: Reports: Occupation: Employed H&P Review of Systems - Review of Systems: Review Of Systems: See Below General: Reports: Weakness. Denies: Fever, Chills, Malaise HEENT: Reports: No Symptoms Pulmonary: Reports: Shortness of Breath, Wheezing, Pleuritic Chest Pain, Cough, Sputum. Denies: Hemoptysis Cardiovascular: Reports: Chest Pain, Dyspnea on Exertion, Orthopnea. Denies: Palpitations Gastrointestinal: Denies: Abdominal Pain, Constipation, Diarrhea, Nausea Genitourinary: Reports: No Symptoms. Denies: Dysuria, Burning Musculoskeletal: Reports: Back Pain, Other (right axillary pain ) Skin: Reports: No Symptoms Psychiatric: Reports: No Symptoms. Denies: Confusion, Depression Neurological: Denies: Dizziness, Headache Exam - Exam Exam: See Below - Vital Signs Vital Signs: Last Vital Signs Temp 97.5 F 04/17/19 04:00 Pulse 77 04/17/19 04:00 Resp 18 04/17/19 04:00 BP 100/53 L 04/17/19 04:00 Pulse Ox 93 L 04/17/19 04:00 Weight: 321 lb 6.4 oz - Exam Quality Assessment: Supplemental Oxygen General: Alert, Oriented, Cooperative HEENT: Conjunctiva Clear, EOMI, Mucosa Moist & [place] Neck: Supple, Trachea Midline Lungs: Other (Diffuse expiratory/inspiratory wheeze. Diffuse crackles however more predominant right lower lobe; diminished breath sounds diffusely. Kings breath sounds at Apices. + upper airway sounds) Cardiovascular: Regular Rate, Regular Rhythm GI/Abdominal Exam: Soft, Non-Tender Back Exam: Normal Inspection, Full Range of Motion, Other (no tenderness over right axillary area; however pt can point to area of pain ;) Extremities: Normal Inspection Skin: Warm, Dry, Intact, Other (raised skin in circular fashion over left / right forehead; chronic lesion from MM ) Neurological: Cranial Nerves Intact Neuro Extensive - Mental Status: Alert, Oriented x3, Normal Mood/Affect Neuro Extensive - Motor, Sensory, Reflexes: CN II-XII Intact Psychiatric: Alert, Normal Affect - Patient Data Lab Results Last 24 hrs: Laboratory Results - last 24 hr 04/17/19 04/17/19 04/17/19 Range/Units 00:02 00:02 00:02 WBC 16.73 H (4.0-11.0) K/uL RBC 2.91 L (4.50-5.90) M/uL Hgb 9.9 L (13.0-17.0) g/dL Hct 29.9 L (38.0-50.0) % MCV 102.7 H (80.0-98.0) fL MCH 34.0 H (27.0-32.0) pg MCHC 33.1 (31.0-37.0) g/dL RDW Std Deviation 52.7 (28.0-62.0) fl RDW Coeff of Christiano 15 (11.0-15.0) % Plt Count 191 (150-400) K/uL MPV 9.60 (7.40-12.00) fL Neut % (Auto) (48.0-80.0) % Lymph % (Auto) (16.0-40.0) % [place] % (Auto) (0.0-15.0) % Eos % (Auto) (0.0-7.0) % Baso % (Auto) (0.0-1.5) % Neut # (Auto) (1.4-5.7) K/uL Lymph # (Auto) (0.6-2.4) K/uL [place] # (Auto) (0.0-0.8) K/uL Eos # (Auto) (0.0-0.7) K/uL Baso # (Auto) (0.0-0.1) K/uL Add Manual Diff YES Neutrophils % (Manual) 70 (48.0-80.0) % Band Neutrophils % 13 % Lymphocytes % (Manual) 14 L (16.0-40.0) % Monocytes % (Manual) 3 (0.0-15.0) % Nucleated RBC % /100WBC Absolute Seg Neuts 11.7 H (1.4-5.7) Band Neutrophils # 2.2 Lymphocytes # (Manual) 2.3 (0.6-2.4) Monocytes # (Manual) 0.5 (0.0-0.8) Nucleated RBCs # K/uL INR 1.16 Lactate (0.20-2.00) mmol/L Sodium 133 L (136-148) mmol/L Potassium 4.1 (3.5-5.1) mmol/L Chloride 99 (98-107) mmol/L Carbon Dioxide 23.9 (21.0-32.0) mmol/L BUN 18 (7.0-18.0) mg/dL Creatinine 1.3 (0.8-1.3) mg/dL Est Cr Clr Drug Dosing TNP Estimated GFR (MDRD) 57.1 ml/min Glucose 115 H (74-106) mg/dL Calcium 9.6 (8.5-10.1) mg/dL Total Bilirubin 1.3 H (0.2-1.0) mg/dL AST 14 L (15-37) IU/L ALT 17 (14-63) IU/L Alkaline Phosphatase 84 (46-116) U/L Troponin I < 0.050 (0.000-0.056) ng/mL Total Protein 7.7 (6.4-8.2) g/dL Albumin 2.7 L (3.4-5.0) g/dL Globulin 5.0 H (2.6-4.0) g/dL Albumin/Globulin Ratio 0.5 L (0.9-1.6) Lipase 45 L (73-393) U/L 04/17/19 04/17/19 04/17/19 Range/Units 00:02 06:15 06:15 WBC 15.49 H (4.0-11.0) K/uL RBC 2.85 L (4.50-5.90) M/uL Hgb 9.4 L (13.0-17.0) g/dL Hct 29.3 L (38.0-50.0) % MCV 102.8 H (80.0-98.0) fL MCH 33.0 H (27.0-32.0) pg MCHC 32.1 (31.0-37.0) g/dL RDW Std Deviation 58.1 (28.0-62.0) fl RDW Coeff of Christiano 16 H (11.0-15.0) % Plt Count 164 (150-400) K/uL MPV 9.40 (7.40-12.00) fL Neut % (Auto) 82.5 H (48.0-80.0) % Lymph % (Auto) 7.6 L (16.0-40.0) % [place] % (Auto) 9.0 (0.0-15.0) % Eos % (Auto) 0.8 (0.0-7.0) % Baso % (Auto) 0.1 (0.0-1.5) % Neut # (Auto) 12.8 H (1.4-5.7) K/uL Lymph # (Auto) 1.2 (0.6-2.4) K/uL [place] # (Auto) 1.4 H (0.0-0.8) K/uL Eos # (Auto) 0.1 (0.0-0.7) K/uL Baso # (Auto) 0.0 (0.0-0.1) K/uL Add Manual Diff Neutrophils % (Manual) (48.0-80.0) % Band Neutrophils % % Lymphocytes % (Manual) (16.0-40.0) % Monocytes % (Manual) (0.0-15.0) % Nucleated RBC % 0.0 /100WBC Absolute Seg Neuts (1.4-5.7) Band Neutrophils # Lymphocytes # (Manual) (0.6-2.4) Monocytes # (Manual) (0.0-0.8) Nucleated RBCs # 0 K/uL INR Lactate 1.2 (0.20-2.00) mmol/L Sodium 134 L (136-148) mmol/L Potassium 4.2 (3.5-5.1) mmol/L Chloride 99 (98-107) mmol/L Carbon Dioxide 27.6 (21.0-32.0) mmol/L BUN 19 H (7.0-18.0) mg/dL Creatinine 1.3 (0.8-1.3) mg/dL Est Cr Clr Drug Dosing 75.83 Estimated GFR (MDRD) 57.1 ml/min Glucose 147 H (74-106) mg/dL Calcium 9.4 (8.5-10.1) mg/dL Total Bilirubin (0.2-1.0) mg/dL AST (15-37) IU/L ALT (14-63) IU/L Alkaline Phosphatase (46-116) U/L Troponin I (0.000-0.056) ng/mL Total Protein (6.4-8.2) g/dL Albumin (3.4-5.0) g/dL Globulin (2.6-4.0) g/dL Albumin/Globulin Ratio (0.9-1.6) Lipase (73-393) U/L Result Diagrams: 04/17/19 06:15 04/17/19 06:15 Problem List Initiated/Reviewed/Updated: Yes Orders Last 24hrs: Active Orders 24 hr Category Date Time Status Patient Status [ADT] Stat ADT 04/17/19 01:16 Active Cardiac Monitoring [RC] . DIRECTED Care 04/17/19 00:13 Active EKG Documentation Completion [RC] STAT Care 04/17/19 00:13 Active Oxygen Therapy, ED [RC] ASDIRECTED Care 04/17/19 00:13 Active Pulse Oximetry [RC] ASDIRECTED Care 04/17/19 00:13 Active RT Aerosol Therapy [RC] ASDIRECTED Care 04/17/19 00:14 Active Regular Diet [DIET] Diet 04/17/19 Breakfast Active CULTURE BLOOD [BC] Stat Lab 04/17/19 01:09 Received CULTURE BLOOD [BC] Stat Lab 04/17/19 01:19 Received Sodium Chloride 0.9% [Saline Flush] Med 04/17/19 00:14 Active 10 ml FLUSH ASDIRECTED PRN Sodium Chloride 0.9% [Saline Flush] Med 04/17/19 00:14 Active 2.5 ml FLUSH ASDIRECTED PRN oxyCODONE Med 04/17/19 02:23 Active 5 mg PO Q6H PRN Blood Culture x2 Reflex Set [OM.PC] Stat Oth 04/17/19 01:05 Ordered Convert IV to Saline Lock [OM.PC] Routine Oth 04/17/19 02:21 Ordered Saline Lock Insert [OM.PC] Stat Oth 04/17/19 00:13 Ordered Medication Orders Oxycodone HCl (Oxycodone) 5 mg PO Q6H PRN PRN Reason: pain Last Admin: 04/17/19 03:17 Dose: 5 mg Sodium Chloride (Saline Flush) 10 ml FLUSH ASDIRECTED PRN PRN Reason: Keep Vein Open Last Admin: 04/17/19 00:23 Dose: 10 ml Sodium Chloride (Saline Flush) 2.5 ml FLUSH ASDIRECTED PRN PRN Reason: Keep Vein Open Last Admin: 04/17/19 00:23 Dose: 2.5 ml Assessment/Plan Comment:: Assessment 1. Acute hypoxic respiratory failure secondary to radiation associated organizing pneumonia w/ right-sided pleural effusion and concerns about gram- liza infection 2. Bacteremia secondary to Gram + cocci 3. Macrocytic anemia 4. Hyperglycemia 5. Past medical history of heart failure, hypercholesterolemia, right lung pneumonitis peripheral neuropathy lung cancer Plan Admitted to observation. Full code. Intake/output per routine, Vitals per routine. DVT prophylaxis: lovenox 40. GI prophylaxis: pantoprazole 40. Activity up ad pepper. Continue Bipap as needed. Telemetry. 1. Initiate vancomycin, Zosyn and Levaquin secondary to gram-positive cocci in blood culture. Sputum culture and stain ordered Pain control: Continue oxycodone 5 per home regimen; initiated on one-time dose of Ketorolac IV; may change choice of pain medication secondary to renal status. 2. Continue to monitor Macrocytic anemia: most likely secondary to chronic MM 3. Hyperglycemia: most likely secondary to steroid regimen; continue to monitor.
[2019-04-17] MEDS ORDERED: Levofloxacin/Dextrose 5%-Water 750 MG in Premix Bag 1 BAG IV ONE (11:19)
[2019-04-17] MEDS ORDERED: Albuterol/Ipratropium 3.0-0.5 MG/3 ML Neb Soln NEB PRN (11:20)
[2019-04-17] MEDS ORDERED: LORazepam 1 MG Tab PO PRN (11:20)
[2019-04-17] MEDS ORDERED: Omeprazole 20 MG Cap.CR PO PRN (11:20)
[2019-04-17] MEDS ORDERED: oxyCODONE 5 MG Tab PO PRN (11:20)
[2019-04-17] MEDS ORDERED: Ketorolac 30 MG/ML SDV IVPUSH ONE (12:38)
[2019-04-17] MEDS: Pantoprazole 40 MG Tab.CR PO SCH (13:11)
[2019-04-17] MEDS ORDERED: Levofloxacin/Dextrose 5%-Water 750 MG in Premix Bag 1 BAG IV SCH (14:15)
[2019-04-17] MEDS ORDERED: Vancomycin 2 GM in Sodium Chloride 0.9% 500 ML IV SCH (14:30)
[2019-04-17] MEDS: VANCOMYCIN/WATER FOR INJ (PEG) 1.5 GM in Premix Bag 1 BAG IV SCH ×2 (14:54→22:15)
[2019-04-17] MEDS: Piperacillin/Tazobactam 4.5 GM in Sodium Chloride 0.9% 100 ML IV SCH (16:49)
[2019-04-17] MEDS: Lidocaine 5% 700 MG Patch TOP SCH (17:14)
[2019-04-17] MEDS: Gabapentin 800 MG Tab PO SCH (20:19)
[2019-04-17] MEDS: Apixaban 2.5 MG Tab PO SCH (20:20)
[2019-04-17] MEDS: Acyclovir 200 MG Cap PO SCH (20:20)
[2019-04-18] MEDS: Piperacillin/Tazobactam 4.5 GM in Sodium Chloride 0.9% 100 ML IV SCH ×3 (00:42→16:35)
[2019-04-18] MEDS: VANCOMYCIN/WATER FOR INJ (PEG) 1.5 GM in Premix Bag 1 BAG IV SCH ×3 (06:03→22:13)
[2019-04-18 06:53] LABS: BLOOD UREA NITROGEN,BUN 21 mg/dL (7.0-18.0); CHLORIDE,CL 101 mmol/L (98-107); GLUCOSE RANDOM 103 mg/dL (74-106); SODIUM,NA 136 mmol/L (136-148)
[2019-04-18] MEDS: predniSONE 20 MG Tab PO SCH (08:20)
[2019-04-18] MEDS: Apixaban 2.5 MG Tab PO SCH ×2 (08:21→20:33)
[2019-04-18] MEDS: Pantoprazole 40 MG Tab.CR PO SCH (08:21)
[2019-04-18] MEDS: Acyclovir 200 MG Cap PO SCH ×2 (08:22→20:34)
[2019-04-18] MEDS: Gabapentin 800 MG Tab PO SCH ×2 (08:23→20:34)
--- NOTE | 2019-04-18 09:18 | PCM.PN ---
- General Info Date of Service: 04/18/19 Subjective Update: Seen at bedside: mentioning marked improvement of pain with increase of oxycodone and decrease in rib-pain while coughing with the Lidocaine patch. Otherwise, states he feels better and has no other complaints at this time. - Review of Systems General: Denies: Fever, Weakness, Chills Pulmonary: Reports: Shortness of Breath (improving), Cough, Sputum. Denies: Wheezing Cardiovascular: Reports: Dyspnea on Exertion. Denies: Chest Pain Gastrointestinal: Denies: Abdominal Pain, Constipation, Nausea, Vomiting Genitourinary: Reports: No Symptoms Musculoskeletal: Reports: No Symptoms Neurological: Reports: No Symptoms Psychiatric: Reports: No Symptoms - Patient Data Vitals - Most Recent: Last Vital Signs Temp 97.5 F 04/18/19 08:00 Pulse 72 04/18/19 08:00 Resp 16 04/18/19 08:00 BP 129/68 04/18/19 08:00 Pulse Ox 92 L 04/18/19 08:00 Weight - Most Recent: 321 lb 6.4 oz I&O - Last 24 Hours: Intake & Output 04/17/19 04/18/19 04/18/19 22:59 06:59 14:59 Intake Total 2200 1250 Output Total 700 1400 Balance 1500 -150 Lab Results Last 24 Hours: Laboratory Results - last 24 hr 04/18/19 04/18/19 Range/Units 06:09 06:09 WBC 11.73 H (4.0-11.0) K/uL RBC 2.64 L (4.50-5.90) M/uL Hgb 8.6 L (13.0-17.0) g/dL Hct 27.1 L (38.0-50.0) % MCV 102.7 H (80.0-98.0) fL MCH 32.6 H (27.0-32.0) pg MCHC 31.7 (31.0-37.0) g/dL RDW Std Deviation 58.6 (28.0-62.0) fl RDW Coeff of Christiano 16 H (11.0-15.0) % Plt Count 165 (150-400) K/uL MPV 9.20 (7.40-12.00) fL Neut % (Auto) 67.6 (48.0-80.0) % Lymph % (Auto) 12.7 L (16.0-40.0) % [place] % (Auto) 14.6 (0.0-15.0) % Eos % (Auto) 5.0 (0.0-7.0) % Baso % (Auto) 0.1 (0.0-1.5) % Neut # (Auto) 7.9 H (1.4-5.7) K/uL Lymph # (Auto) 1.5 (0.6-2.4) K/uL [place] # (Auto) 1.7 H (0.0-0.8) K/uL Eos # (Auto) 0.6 (0.0-0.7) K/uL Baso # (Auto) 0.0 (0.0-0.1) K/uL Nucleated RBC % 0.0 /100WBC Nucleated RBCs # 0 K/uL Sodium 136 (136-148) mmol/L Potassium 4.0 (3.5-5.1) mmol/L Chloride 101 (98-107) mmol/L Carbon Dioxide 27.0 (21.0-32.0) mmol/L BUN 21 H (7.0-18.0) mg/dL Creatinine 1.2 (0.8-1.3) mg/dL Est Cr Clr Drug Dosing 82.15 mL/min Estimated GFR (MDRD) > 60.0 ml/min Glucose 103 (74-106) mg/dL Calcium 9.1 (8.5-10.1) mg/dL Total Bilirubin 0.6 (0.2-1.0) mg/dL AST 12 L (15-37) IU/L ALT 14 (14-63) IU/L Alkaline Phosphatase 90 (46-116) U/L Total Protein 7.1 (6.4-8.2) g/dL Albumin 2.2 L (3.4-5.0) g/dL Globulin 4.9 H (2.6-4.0) g/dL Albumin/Globulin Ratio 0.5 L (0.9-1.6) [place] Results Last 24 Hours: Microbiology 04/17/19 22:28 Gram Stain - Preliminary Sputum - Expectorated 04/17/19 01:19 Aerobic Blood Culture - Preliminary Blood - Venous - Lab Draw Anaerobic Blood Culture - Preliminary 04/17/19 01:09 Aerobic Blood Culture - Preliminary Blood - Venous Anaerobic Blood Culture - Preliminary Med Orders - Current: Current Medications Acyclovir (Zovirax) 400 mg PO BID [facility] Last Admin: 04/18/19 08:22 Dose: 400 mg Albuterol/Ipratropium (Duoneb 3.0-0.5 Mg/3 Ml) 3 ml NEB QID PRN PRN Reason: Shortness of Breath Last Admin: 04/18/19 07:48 Dose: 3 ml Albuterol/Ipratropium (Duoneb 3.0-0.5 Mg/3 Ml) 3 ml NEB Q6HRRT [facility] Apixaban (Eliquis) 5 mg PO BID [facility] Last Admin: 04/18/19 08:21 Dose: 5 mg Gabapentin (Neurontin) 800 mg PO BID [facility] Last Admin: 04/18/19 08:23 Dose: 800 mg Piperacillin Sod/Tazobactam (Sod 4.5 gm/ Sodium Chloride) 100 mls @ 100 mls/hr IV Q8H [facility] Last Admin: 04/18/19 08:15 Dose: 100 mls/hr Vancomycin HCl 1.5 gm/ Premix 300 mls @ 200 mls/hr IV Q8H [facility] Last Admin: 04/18/19 06:03 Dose: 200 mls/hr Levofloxacin/Dextrose 750 mg/ (Premix) 150 mls @ 100 mls/hr IV Q24H [facility] Lidocaine (Lidoderm 5%) 700 mg TOP Q24H [facility] Last Admin: 04/17/19 17:14 Dose: 700 mg Lorazepam (Ativan) 1 mg PO BEDTIME PRN PRN Reason: Sleep Omeprazole (Omeprazole) 20 mg PO ACBREAKFAST PRN PRN Reason: Heartburn Oxycodone HCl (Oxycodone) 10 mg PO Q4H PRN PRN Reason: Pain Last Admin: 04/17/19 22:20 Dose: 10 mg Pantoprazole Sodium (Protonix) 40 mg PO DAILY [facility] Last Admin: 04/18/19 08:21 Dose: 40 mg Prednisone (Prednisone) 40 mg PO WITHBREAKFAST [facility] Last Admin: 04/18/19 08:20 Dose: 40 mg Sodium Chloride (Saline Flush) 10 ml FLUSH ASDIRECTED PRN PRN Reason: Keep Vein Open Last Admin: 04/17/19 00:23 Dose: 10 ml Sodium Chloride (Saline Flush) 2.5 ml FLUSH ASDIRECTED PRN PRN Reason: Keep Vein Open Last Admin: 04/17/19 00:23 Dose: 2.5 ml Vancomycin HCl (Pharmacy To Dose - Vancomycin) 1 dose .XX ASDIRECTED SIMONA Discontinued Medications Albuterol/Ipratropium (Duoneb 3.0-0.5 Mg/3 Ml) 3 ml NEB ONETIME ONE Stop: 04/17/19 00:15 Last Admin: 04/17/19 00:23 Dose: 3 ml Azithromycin (Zithromax) 500 mg PO ONETIME ONE Stop: 04/17/19 01:16 Last Admin: 04/17/19 01:23 Dose: 500 mg Hydromorphone HCl (Dilaudid) 1 mg IVPUSH ONETIME ONE Stop: 04/17/19 00:15 Last Admin: 04/17/19 00:23 Dose: 1 mg Ceftriaxone Sodium/Dextrose 2 (gm/ Premix) 50 mls @ 100 mls/hr IV ONETIME ONE Stop: 04/17/19 01:44 Last Admin: 04/17/19 01:23 Dose: 100 mls/hr Levofloxacin/Dextrose 750 mg/ (Premix) 150 mls @ 100 mls/hr IV ONETIME ONE Stop: 04/17/19 12:48 Last Admin: 04/17/19 11:46 Dose: 100 mls/hr Levofloxacin/Dextrose 750 mg/ (Premix) 150 mls @ 100 mls/hr IV Q24H [facility] Last Admin: 04/17/19 15:25 Dose: Not Given Ketorolac Tromethamine (Toradol) 30 mg IVPUSH ONETIME ONE Stop: 04/17/19 12:39 Last Admin: 04/17/19 13:00 Dose: 30 mg Oxycodone HCl (Oxycodone) 5 mg PO Q6H PRN PRN Reason: pain Last Admin: 04/17/19 09:37 Dose: 5 mg Oxycodone HCl (Oxycodone) 5 mg PO Q6H PRN PRN Reason: Pain Sodium Chloride (Saline Flush) 10 ml FLUSH ASDIRECTED PRN PRN Reason: Keep Vein Open Sodium Chloride (Saline Flush) 2.5 ml FLUSH ASDIRECTED PRN PRN Reason: Keep Vein Open - Exam Quality Assessment: Supplemental Oxygen General: Alert, Oriented HEENT: EOMI, Mucous Membr. Moist/[place] Neck: Supple Lungs: Decreased Breath Sounds, Other (Moving air w/o wheezing; diminished at bases ; interval improvement since yesterday; auscultated right after Duo-neb treatment. ) GI/Abdominal Exam: Soft, Non-Tender Back Exam: Normal Inspection Extremities: Other (right axillary area: lidocaine patch in-situ; no point tenderness ) Skin: Warm, Dry, Intact Neurological: No New Focal Deficit Psy/Mental Status: Alert, Normal Affect, Normal Mood - Problem List Review Problem List Initiated/Reviewed/Updated: Yes - My Orders Last 24 Hours: My Active Orders 04/17/19 11:17 Admission Status [Patient Status] [ADT] Routine 04/17/19 11:20 Albuterol/Ipratropium [DuoNeb 3.0-0.5 MG/3 ML] 3 ml NEB QID PRN LORazepam [Ativan] 1 mg PO BEDTIME PRN Omeprazole 20 mg PO ACBREAKFAST PRN 04/17/19 12:45 Pantoprazole [ProTONIX] 40 mg PO DAILY 04/17/19 16:30 Piperacillin/Tazobactam [Piperacil-Tazobact] 4.5 gm Sodium Chloride 0.9% [ Normal Saline] 100 ml IV Q8H 04/17/19 16:56 oxyCODONE 10 mg PO Q4H PRN 04/17/19 17:00 Lidocaine 5% [Lidoderm 5%] 700 mg TOP Q24H 04/17/19 21:00 Acyclovir [Zovirax] 400 mg PO BID Apixaban [Eliquis] 5 mg PO BID Gabapentin [Neurontin] 800 mg PO BID 04/18/19 07:54 RT Aerosol Therapy [RC] ASDIRECTED 04/18/19 08:00 predniSONE 40 mg PO WITHBREAKFAST 04/18/19 08:15 Code Status [Resuscitation Status] Routine 04/18/19 12:00 Albuterol/Ipratropium [DuoNeb 3.0-0.5 MG/3 ML] 3 ml NEB Q6HRRT Levofloxacin/Dextrose 5%-Water [Levaquin in D5W 750 MG/150 ML] 750 mg Premix Bag 1 bag IV Q24H - Plan Plan:: Assessment 1. Acute hypoxic respiratory failure secondary to radiation associated organizing pneumonia w/ right-sided pleural effusion and concerns about gram- liza infection 2. Bacteremia secondary to Gram + cocci 3. Macrocytic anemia 4. Hyperglycemia 5. Past medical history of heart failure, hypercholesterolemia, right lung pneumonitis peripheral neuropathy lung cancer Plan Admitted to observation. Full code. Intake/output per routine, Vitals per routine. DVT prophylaxis: lovenox 40. GI prophylaxis: pantoprazole 40. Activity up ad pepper. Continue Bipap as needed. Telemetry. 1. Continue vancomycin, Zosyn and Levaquin secondary to gram-positive cocci in blood culture. Sputum culture and stain ordered Pain control: Increase oxycodone to 10mg+Lidocaine patch over right axillary region :improving w/ this regimen 2. Continue to monitor Macrocytic anemia: most likely secondary to chronic MM 3. Hyperglycemia: most likely secondary to steroid regimen; continue to monitor.
[2019-04-18] MEDS: Albuterol/Ipratropium 3.0-0.5 MG/3 ML Neb Soln NEB SCH ×2 (11:27→18:18)
[2019-04-18] MEDS: Levofloxacin/Dextrose 5%-Water 750 MG in Premix Bag 1 BAG IV SCH (12:49)
[2019-04-18] MEDS: oxyCODONE 5 MG Tab PO PRN ×2 (13:38→20:39)
[2019-04-18] MEDS: Lidocaine 5% 700 MG Patch TOP SCH (16:36)
[2019-04-19] MEDS: Albuterol/Ipratropium 3.0-0.5 MG/3 ML Neb Soln NEB SCH ×4 (00:22→17:48)
[2019-04-19] MEDS: Piperacillin/Tazobactam 4.5 GM in Sodium Chloride 0.9% 100 ML IV SCH ×3 (00:23→17:55)
[2019-04-19] MEDS: VANCOMYCIN/WATER FOR INJ (PEG) 1.5 GM in Premix Bag 1 BAG IV SCH ×3 (06:06→22:15)
[2019-04-19 07:23] LABS: BLOOD UREA NITROGEN,BUN 17 mg/dL (7.0-18.0); CARBON DIOXIDE,CO2 25.2 mmol/L (21.0-32.0); CHLORIDE,CL 104 mmol/L (98-107); GLUCOSE RANDOM 106 mg/dL (74-106); POTASSIUM,K 3.9 mmol/L (3.5-5.1); SODIUM,NA 138 mmol/L (136-148)
[2019-04-19] MEDS: Pantoprazole 40 MG Tab.CR PO SCH (08:36)
[2019-04-19] MEDS: Acyclovir 200 MG Cap PO SCH ×2 (08:36→20:44)
[2019-04-19] MEDS: Apixaban 2.5 MG Tab PO SCH ×2 (08:37→20:44)
[2019-04-19] MEDS: Gabapentin 800 MG Tab PO SCH ×2 (08:37→20:44)
[2019-04-19] MEDS: predniSONE 20 MG Tab PO SCH (08:37)
--- NOTE | 2019-04-19 09:01 | PCM.PN ---
- General Info Date of Service: 04/19/19 Subjective Update: Patient seen at bedside: endorsing improvement of pain but states his wheezing has returned; last neb treatment was at 6am; Otherwise states he feels stronger today. Functional Status: Reports: Pain Controlled - Review of Systems General: Reports: No Symptoms HEENT: Reports: No Symptoms Pulmonary: Reports: Cough, Hemoptysis, Wheezing Cardiovascular: Reports: Dyspnea on Exertion. Denies: Chest Pain, Palpitations Gastrointestinal: Denies: Abdominal Pain, Constipation, Diarrhea Genitourinary: Denies: Dysuria, Frequency, Pain Musculoskeletal: Denies: Neck Pain, Shoulder Pain Neurological: Denies: Confusion, Dizziness, Headache - Patient Data Vitals - Most Recent: Last Vital Signs Temp 98.0 F 04/19/19 08:43 Pulse 67 04/19/19 08:43 Resp 18 04/19/19 08:43 BP 111/65 04/19/19 08:43 Pulse Ox 93 L 04/19/19 08:43 Weight - Most Recent: 321 lb 6.4 oz I&O - Last 24 Hours: Intake & Output 04/18/19 04/19/19 04/19/19 22:59 06:59 14:59 Intake Total 2800 700 Output Total 825 500 Balance 1975 200 Lab Results Last 24 Hours: Laboratory Results - last 24 hr 04/18/19 04/19/19 04/19/19 Range/Units 14:00 06:43 06:43 WBC 7.79 (4.0-11.0) K/uL RBC 2.41 L (4.50-5.90) M/uL Hgb 7.7 L (13.0-17.0) g/dL Hct 24.4 L (38.0-50.0) % MCV 101.2 H (80.0-98.0) fL MCH 32.0 (27.0-32.0) pg MCHC 31.6 (31.0-37.0) g/dL RDW Std Deviation 56.8 (28.0-62.0) fl RDW Coeff of [place]o 15 (11.0-15.0) % Plt Count 167 (150-400) K/uL MPV 9.00 (7.40-12.00) fL Neut % (Auto) 61.0 (48.0-80.0) % Lymph % (Auto) 18.4 (16.0-40.0) % [place] % (Auto) 18.4 H (0.0-15.0) % Eos % (Auto) 2.2 (0.0-7.0) % Baso % (Auto) 0.0 (0.0-1.5) % Neut # (Auto) 4.8 (1.4-5.7) K/uL Lymph # (Auto) 1.4 (0.6-2.4) K/uL [place] # (Auto) 1.4 H (0.0-0.8) K/uL Eos # (Auto) 0.2 (0.0-0.7) K/uL Baso # (Auto) 0.0 (0.0-0.1) K/uL Nucleated RBC % 0.0 /100WBC Nucleated RBCs # 0 K/uL Sodium 138 (136-148) mmol/L Potassium 3.9 (3.5-5.1) mmol/L Chloride 104 (98-107) mmol/L Carbon Dioxide 25.2 (21.0-32.0) mmol/L BUN 17 (7.0-18.0) mg/dL Creatinine 1.1 (0.8-1.3) mg/dL Est Cr Clr Drug Dosing 89.62 mL/min Estimated GFR (MDRD) > 60.0 ml/min Glucose 106 (74-106) mg/dL Calcium 8.3 L (8.5-10.1) mg/dL Total Bilirubin 0.6 (0.2-1.0) mg/dL AST 29 (15-37) IU/L ALT 31 (14-63) IU/L Alkaline Phosphatase 147 H (46-116) U/L Total Protein 6.8 (6.4-8.2) g/dL Albumin 2.1 L (3.4-5.0) g/dL Globulin 4.7 H (2.6-4.0) g/dL Albumin/Globulin Ratio 0.5 L (0.9-1.6) Vancomycin Trough 14.5 H (5.0-10.0) ug/mL Bruno Results Last 24 Hours: Microbiology 04/17/19 01:19 Aerobic Blood Culture - Preliminary Blood - Venous - Lab Draw Anaerobic Blood Culture - Preliminary 04/17/19 01:09 Aerobic Blood Culture - Preliminary Blood - Venous Anaerobic Blood Culture - Preliminary Med Orders - Current: Current Medications Acyclovir (Zovirax) 400 mg PO BID [facility] Last Admin: 04/19/19 08:36 Dose: 400 mg Albuterol/Ipratropium (Duoneb 3.0-0.5 Mg/3 Ml) 3 ml NEB QID PRN PRN Reason: Shortness of Breath Last Admin: 04/18/19 07:48 Dose: 3 ml Albuterol/Ipratropium (Duoneb 3.0-0.5 Mg/3 Ml) 3 ml NEB Q6HRRT [facility] Last Admin: 04/19/19 05:59 Dose: 3 ml Apixaban (Eliquis) 5 mg PO BID [facility] Last Admin: 04/19/19 08:37 Dose: 5 mg Gabapentin (Neurontin) 800 mg PO BID [facility] Last Admin: 04/19/19 08:37 Dose: 800 mg Piperacillin Sod/Tazobactam (Sod 4.5 gm/ Sodium Chloride) 100 mls @ 100 mls/hr IV Q8H [facility] Last Admin: 04/19/19 08:39 Dose: 100 mls/hr Vancomycin HCl 1.5 gm/ Premix 300 mls @ 200 mls/hr IV Q8H [facility] Last Admin: 04/19/19 06:06 Dose: 200 mls/hr Levofloxacin/Dextrose 750 mg/ (Premix) 150 mls @ 100 mls/hr IV Q24H [facility] Last Admin: 04/18/19 12:49 Dose: 100 mls/hr Lidocaine (Lidoderm 5%) 700 mg TOP Q24H [facility] Last Admin: 04/18/19 16:36 Dose: 700 mg Lorazepam (Ativan) 1 mg PO BEDTIME PRN PRN Reason: Sleep Omeprazole (Omeprazole) 20 mg PO ACBREAKFAST PRN PRN Reason: Heartburn Oxycodone HCl (Oxycodone) 10 mg PO Q4H PRN PRN Reason: Pain Last Admin: 04/18/19 20:39 Dose: 10 mg Pantoprazole Sodium (Protonix) 40 mg PO DAILY [facility] Last Admin: 04/19/19 08:36 Dose: 40 mg Prednisone (Prednisone) 40 mg PO WITHBREAKFAST [facility] Last Admin: 04/19/19 08:37 Dose: 40 mg Sodium Chloride (Saline Flush) 10 ml FLUSH ASDIRECTED PRN PRN Reason: Keep Vein Open Last Admin: 04/17/19 00:23 Dose: 10 ml Sodium Chloride (Saline Flush) 2.5 ml FLUSH ASDIRECTED PRN PRN Reason: Keep Vein Open Last Admin: 04/17/19 00:23 Dose: 2.5 ml Vancomycin HCl (Pharmacy To Dose - Vancomycin) 1 dose .XX ASDIRECTED SIMONA Discontinued Medications Albuterol/Ipratropium (Duoneb 3.0-0.5 Mg/3 Ml) 3 ml NEB ONETIME ONE Stop: 04/17/19 00:15 Last Admin: 04/17/19 00:23 Dose: 3 ml Azithromycin (Zithromax) 500 mg PO ONETIME ONE Stop: 04/17/19 01:16 Last Admin: 04/17/19 01:23 Dose: 500 mg Hydromorphone HCl (Dilaudid) 1 mg IVPUSH ONETIME ONE Stop: 04/17/19 00:15 Last Admin: 04/17/19 00:23 Dose: 1 mg Ceftriaxone Sodium/Dextrose 2 (gm/ Premix) 50 mls @ 100 mls/hr IV ONETIME ONE Stop: 04/17/19 01:44 Last Admin: 04/17/19 01:23 Dose: 100 mls/hr Levofloxacin/Dextrose 750 mg/ (Premix) 150 mls @ 100 mls/hr IV ONETIME ONE Stop: 04/17/19 12:48 Last Admin: 04/17/19 11:46 Dose: 100 mls/hr Levofloxacin/Dextrose 750 mg/ (Premix) 150 mls @ 100 mls/hr IV Q24H [facility] Last Admin: 04/17/19 15:25 Dose: Not Given Ketorolac Tromethamine (Toradol) 30 mg IVPUSH ONETIME ONE Stop: 04/17/19 12:39 Last Admin: 04/17/19 13:00 Dose: 30 mg Oxycodone HCl (Oxycodone) 5 mg PO Q6H PRN PRN Reason: pain Last Admin: 04/17/19 09:37 Dose: 5 mg Oxycodone HCl (Oxycodone) 5 mg PO Q6H PRN PRN Reason: Pain Sodium Chloride (Saline Flush) 10 ml FLUSH ASDIRECTED PRN PRN Reason: Keep Vein Open Sodium Chloride (Saline Flush) 2.5 ml FLUSH ASDIRECTED PRN PRN Reason: Keep Vein Open - Exam Quality Assessment: Supplemental Oxygen General: Alert, Oriented, Cooperative, No Acute Distress HEENT: EOMI, Mucous Membr. Moist/[place] Neck: Supple Lungs: Clear to Auscultation, Normal Respiratory Effort Cardiovascular: Regular Rate, Regular Rhythm GI/Abdominal Exam: Normal Bowel Sounds, Soft, Non-Tender Back Exam: Full Range of Motion Extremities: Normal Inspection Skin: Warm, Dry, Intact Neurological: No New Focal Deficit Psy/Mental Status: Alert, Normal Affect, Normal Mood - Problem List Review Problem List Initiated/Reviewed/Updated: Yes - My Orders Last 24 Hours: My Active Orders 04/18/19 08:00 predniSONE 40 mg PO WITHBREAKFAST 04/18/19 08:15 Code Status [Resuscitation Status] Routine 04/18/19 12:00 Albuterol/Ipratropium [DuoNeb 3.0-0.5 MG/3 ML] 3 ml NEB Q6HRRT Levofloxacin/Dextrose 5%-Water [Levaquin in D5W 750 MG/150 ML] 750 mg Premix Bag 1 bag IV Q24H - Plan Plan:: Assessment 1. Acute hypoxic respiratory failure secondary to radiation associated organizing pneumonia w/ right-sided pleural effusion and concerns about gram- liza infection 2. Bacteremia secondary to Gram + cocci 3. Macrocytic anemia 4. Hyperglycemia 5. Past medical history of heart failure, hypercholesterolemia, right lung pneumonitis peripheral neuropathy lung cancer Plan Admitted to observation. Full code. Intake/output per routine, Vitals per routine. DVT prophylaxis: lovenox 40. GI prophylaxis: pantoprazole 40. Activity up ad pepper. Continue Bipap as needed. Telemetry. 1. Continue vancomycin, Zosyn and Levaquin secondary to gram-positive cocci in blood culture. Sputum culture and stain ordered Pain control: Increase oxycodone to 10mg+Lidocaine patch over right axillary region :improving w/ this regimen 2. Continue to monitor Macrocytic anemia: most likely secondary to chronic MM 3. Hyperglycemia: most likely secondary to steroid regimen; continue to monitor. 4. Ordered a stool heme-occult to r/o any acute GI bleed due hemoglobin drop.
[2019-04-19] MEDS: Levofloxacin/Dextrose 5%-Water 750 MG in Premix Bag 1 BAG IV SCH (12:19)
[2019-04-19] MEDS: Folic Acid 1 MG Tab PO SCH (17:55)
[2019-04-19] MEDS: Cyanocobalamin (Vitamin B12) 500 MCG Tab PO SCH (17:55)
[2019-04-19] MEDS: Lidocaine 5% 700 MG Patch TOP SCH (17:56)
[2019-04-20] MEDS: Piperacillin/Tazobactam 4.5 GM in Sodium Chloride 0.9% 100 ML IV SCH ×2 (00:22→08:49)
[2019-04-20] MEDS: Albuterol/Ipratropium 3.0-0.5 MG/3 ML Neb Soln NEB SCH ×3 (00:23→11:17)
[2019-04-20] MEDS: VANCOMYCIN/WATER FOR INJ (PEG) 1.5 GM in Premix Bag 1 BAG IV SCH (06:33)
[2019-04-20 06:44] LABS: BLOOD UREA NITROGEN,BUN 16 mg/dL (7.0-18.0); CARBON DIOXIDE,CO2 25.1 mmol/L (21.0-32.0); CHLORIDE,CL 105 mmol/L (98-107); GLUCOSE RANDOM 93 mg/dL (74-106); SODIUM,NA 141 mmol/L (136-148)
[2019-04-20] MEDS: Gabapentin 800 MG Tab PO SCH (08:49)
[2019-04-20] MEDS: predniSONE 20 MG Tab PO SCH (08:49)
[2019-04-20] MEDS: Folic Acid 1 MG Tab PO SCH (08:49)
[2019-04-20] MEDS: Pantoprazole 40 MG Tab.CR PO SCH (08:49)
[2019-04-20] MEDS: Acyclovir 200 MG Cap PO SCH (08:49)
[2019-04-20] MEDS: Cyanocobalamin (Vitamin B12) 500 MCG Tab PO SCH (08:49)
[2019-04-20] MEDS ORDERED: Apixaban 5 MG Tab PO SCH (09:00)
[2019-04-20] MEDS: Levofloxacin/Dextrose 5%-Water 750 MG in Premix Bag 1 BAG IV SCH (12:09)
[2019-04-20 12:38] VITALS: BP 133/60; PULSE 81
--- NOTE | 2019-04-20 14:11 | PCM.DCSUM1 ---
<Shaina Alejandra - Last Filed: 04/20/19 18:21> Discharge Summary - Hospital Course Free Text/Narrative:: Discharge summary Admission date : April 17, 2019 discharge date : April 20 2019 dmission diagnoses: Acute hypoxic respiratory failure secondary to pneumonia patient with radiation fibrosis Past medical history: multiple myeloma. Hypertension. Hypercholesterolemia. Obesity Discharge diagnoses: Acute hypoxic respiratory failure secondary to strep pneumonia or chronic lung fibrosis Gram-positive cocci/trep pneumonia bacteremia past medical history: multiple myeloma, hypertension, hypercholesterolemia, obesity procedures: none Consultations: none Hospital course: 58-year-old male with past history of multiple myeloma with radiation fibrosis of the right lung presenting with acute hypoxic failure, subjective fever, chills, worsening productive cough; and right sided axillary pain 2 months. Concerns for community-acquired pneumonia; patient initiated on Levaquin 750 daily, supplemental oxygen 2 L, sputum culture showed strep pneumoniae; blood cultures showed gram + cocci. Patient was initiated on Levaquin, Zosyn,and vancomycin. Speciation and sensitivities showed strep pneumoniae w/ levaquin as suitable abx. ultimately decided with results to discharge patient on Levaquin daily [id number] days. COntinue home medication. pt . was stable and wanted to go home. discharge condition: stable Disposition: home Discharge medications: Levaquin 750 daily 10 days Home medications Follow-up: patient advised a follow-up PCP in 7-[address] Mann of Hematology oncology as scheduled. - Discharge Data Discharge Date: 04/20/19 Discharge Disposition: Home, Self-Care 01 Condition: Stable - Referral to Home Health Primary Care Physician: PCP None - Patient Instructions Diet: Heart Healthy Diet Driving: Do Not Drive Showering/Bathing: May Shower Notify Provider of: Fever, Increased Pain, Swelling and Redness, Nausea and/or Vomiting Other/Special Instructions: Adviosed to notify providor if symptoms of fever, chills, body aches, any new symptoms develop against baseline, chest pain, shortness of breath, headache, dizziness or worsening cough. - Discharge Plan *PRESCRIPTION DRUG MONITORING PROGRAM REVIEWED*: No *COPY OF PRESCRIPTION DRUG MONITORING REPORT IN PATIENT NISHA: No Prescriptions/Med Rec: Levofloxacin [Levaquin] 750 mg PO DAILY 10 Days #10 tablet Lidocaine 5% [Lidoderm 5%] 700 mg TOP Q24H PRN 10 Days #10 patch PRN Reason: Pain Home Medications: Home Meds Ipratropium/Albuterol Sulfate [IJD: DuoNeb 3.0-0.5 MG/3 ML] 3 ml NEB QID PRN 06/18 [History] oxyCODONE 5 mg PO Q6H PRN 12/09/17 [History] Cholecalciferol (Vitamin D3) [Vitamin D3] 5,000 unit PO DAILY 01/23/18 [History] Apixaban [Eliquis] 5 mg PO BID 01/26/18 [History] dexAMETHasone [Dexamethasone] 40 mg PO WEEKLY 10/19/18 [History] Acyclovir 400 mg PO BID 03/26/19 [History] Dapsone 1 tab PO DAILY 03/26/19 [History] Gabapentin [Neurontin] 800 mg PO BID 03/26/19 [History] Calcium Citrate 1,000 gm MC DAILY 04/17/19 [History] LORazepam 1 mg PO BEDTIME PRN 04/17/19 [History] Multivitamin [Multivitamins] 1 each PO DAILY 04/17/19 [History] Omeprazole 20 mg PO DAILY PRN 04/17/19 [History] Sennosides/Docusate Sodium [Senna-S] 1 each PO DAILY 04/17/19 [History] Sildenafil Citrate 20 mg PO DAILY 04/17/19 [History] Albuterol/Ipratropium [DuoNeb 3.0-0.5 MG/3 ML] 3 ml NEB Q6HRRT neb 04/20/19 [Rx ] Cyanocobalamin (Vitamin B12) [Vitamin B12] 500 mcg PO DAILY tablet 04/20/19 [Rx ] Folic Acid 1 mg PO DAILY tablet 04/20/19 [Rx] Levofloxacin [Levaquin] 750 mg PO DAILY 10 Days #10 tablet 04/20/19 [Rx] Lidocaine 5% [Lidoderm 5%] 700 mg TOP Q24H PRN 10 Days #10 patch 04/20/19 [Rx] Pantoprazole [ProTONIX] 40 mg PO DAILY tab.cr 04/20/19 [Rx] Patient Handouts: Levofloxacin tablets, Lidocaine dermal patch, Community- Acquired Pneumonia, Adult, [id number] Referrals: [facility] [Outside] Luciano Mann MD [Ordering Only Provider] - 04/26/19 11:00 am (You will be seeing Stella the TIRE RETREADER on this appointment. The medical office receptionist stated Dr. Mann should be able to come see you at this time as well. ) Aylin Dean MD [Ordering Only Provider] - 04/30/19 1:00 pm - Discharge Summary/Plan Comment DC Time >30 min.: No - Patient Data Vitals - Most Recent: Last Vital Signs Temp 97.3 F 04/20/19 12:00 Pulse 81 04/20/19 12:00 Resp 18 04/20/19 12:00 BP 133/60 04/20/19 12:00 Pulse Ox 92 L 04/20/19 12:00 Weight - Most Recent: 145.785 kg I&O - Last 24 hours: Intake & Output 04/19/19 04/20/19 04/20/19 22:59 06:59 14:59 Intake Total 1000 1360 250 Output Total 850 775 Balance 150 585 250 Lab Results - Last 24 hrs: Laboratory Results - last 24 hr 04/20/19 04/20/19 Range/Units 06:15 06:15 WBC 7.02 (4.0-11.0) K/uL RBC 2.52 L (4.50-5.90) M/uL Hgb 8.1 L (13.0-17.0) g/dL Hct 25.4 L (38.0-50.0) % MCV 100.8 H (80.0-98.0) fL MCH 32.1 H (27.0-32.0) pg MCHC 31.9 (31.0-37.0) g/dL RDW Std Deviation 58.1 (28.0-62.0) fl RDW Coeff of Christiano 16 H (11.0-15.0) % Plt Count 170 (150-400) K/uL MPV 8.80 (7.40-12.00) fL Add Manual Diff YES Neutrophils % (Manual) 63 (48.0-80.0) % Band Neutrophils % 2 % Lymphocytes % (Manual) 25 (16.0-40.0) % Monocytes % (Manual) 8 (0.0-15.0) % Eosinophils % (Manual) 1 (0.0-7.0) % Basophils % (Manual) 1 (0.0-1.5) % Nucleated RBC % 0.0 /100WBC Absolute Seg Neuts 4.4 (1.4-5.7) Band Neutrophils # 0.1 Lymphocytes # (Manual) 1.8 (0.6-2.4) Monocytes # (Manual) 0.6 (0.0-0.8) Eosinophils # (Manual) 0.1 (0.0-0.7) Basophils # (Manual) 0.1 (0.0-0.1) Nucleated RBCs # 0 K/uL Sodium 141 (136-148) mmol/L Potassium 4.0 (3.5-5.1) mmol/L Chloride 105 (98-107) mmol/L Carbon Dioxide 25.1 (21.0-32.0) mmol/L BUN 16 (7.0-18.0) mg/dL Creatinine 1.1 (0.8-1.3) mg/dL Est Cr Clr Drug Dosing 89.62 mL/min Estimated GFR (MDRD) > 60.0 ml/min Glucose 93 (74-106) mg/dL Calcium 8.7 (8.5-10.1) mg/dL Total Bilirubin 0.6 (0.2-1.0) mg/dL AST 56 H (15-37) IU/L ALT 69 H (14-63) IU/L Alkaline Phosphatase 179 H (46-116) U/L Total Protein 6.9 (6.4-8.2) g/dL Albumin 2.1 L (3.4-5.0) g/dL Globulin 4.8 H (2.6-4.0) g/dL Albumin/Globulin Ratio 0.4 L (0.9-1.6) MELINDA Results - Last 24 hrs: Microbiology 04/17/19 22:28 Gram Stain - Final Sputum - Expectorated Sputum Culture - Final Normal Respiratory Jazmin 04/17/19 01:19 Aerobic Blood Culture - Final Blood - Venous - Lab Draw Streptococcus Pneumoniae Anaerobic Blood Culture - Final 04/17/19 01:09 Aerobic Blood Culture - Final Blood - Venous Streptococcus Pneumoniae Anaerobic Blood Culture - Final Streptococcus Pneumoniae 04/19/19 11:30 Stool Occult Blood (MELINDA) - Final Stool / Feces NEGATIVE OCCULT BLOOD REFERENCE RANGE: NEGATIVE Med Orders - Current: Current Medications Acyclovir (Zovirax) 400 mg PO BID SIMONA Last Admin: 04/20/19 08:49 Dose: 400 mg Albuterol/Ipratropium (Duoneb 3.0-0.5 Mg/3 Ml) 3 ml NEB QID PRN PRN Reason: Shortness of Breath Last Admin: 04/18/19 07:48 Dose: 3 ml Albuterol/Ipratropium (Duoneb 3.0-0.5 Mg/3 Ml) 3 ml NEB Q6HRRT ON LICENSE OF [facility] Last Admin: 04/20/19 11:17 Dose: 3 ml Apixaban (Eliquis) 5 mg PO BID ON LICENSE OF [facility] Last Admin: 04/20/19 08:49 Dose: 5 mg Cyanocobalamin (Vitamin B12) 500 mcg PO DAILY ON LICENSE OF [facility] Last Admin: 04/20/19 08:49 Dose: 500 mcg Folic Acid (Folic Acid) 1 mg PO DAILY ON LICENSE OF [facility] Last Admin: 04/20/19 08:49 Dose: 1 mg Gabapentin (Neurontin) 800 mg PO BID ON LICENSE OF [facility] Last Admin: 04/20/19 08:49 Dose: 800 mg Piperacillin Sod/Tazobactam (Sod 4.5 gm/ Sodium Chloride) 100 mls @ 100 mls/hr IV Q8H ON LICENSE OF [facility] Last Admin: 04/20/19 08:49 Dose: 100 mls/hr Vancomycin HCl 1.5 gm/ Premix 300 mls @ 200 mls/hr IV Q8H ON LICENSE OF [facility] Last Admin: 04/20/19 06:33 Dose: 200 mls/hr Levofloxacin/Dextrose 750 mg/ (Premix) 150 mls @ 100 mls/hr IV Q24H ON LICENSE OF [facility] Last Admin: 04/20/19 12:09 Dose: 100 mls/hr Lidocaine (Lidoderm 5%) 700 mg TOP Q24H ON LICENSE OF [facility] Last Admin: 04/19/19 17:56 Dose: 700 mg Lorazepam (Ativan) 1 mg PO BEDTIME PRN PRN Reason: Sleep Omeprazole (Omeprazole) 20 mg PO ACBREAKFAST PRN PRN Reason: Heartburn Oxycodone HCl (Oxycodone) 10 mg PO Q4H PRN PRN Reason: Pain Last Admin: 04/18/19 20:39 Dose: 10 mg Pantoprazole Sodium (Protonix) 40 mg PO DAILY ON LICENSE OF [facility] Last Admin: 04/20/19 08:49 Dose: 40 mg Prednisone (Prednisone) 40 mg PO WITHBREAKFAST ON LICENSE OF [facility] Last Admin: 04/20/19 08:49 Dose: 40 mg Sodium Chloride (Saline Flush) 10 ml FLUSH ASDIRECTED PRN PRN Reason: Keep Vein Open Last Admin: 04/17/19 00:23 Dose: 10 ml Sodium Chloride (Saline Flush) 2.5 ml FLUSH ASDIRECTED PRN PRN Reason: Keep Vein Open Last Admin: 04/17/19 00:23 Dose: 2.5 ml Vancomycin HCl (Pharmacy To Dose - Vancomycin) 1 dose .XX ASDIRECTED SIMONA Discontinued Medications Albuterol/Ipratropium (Duoneb 3.0-0.5 Mg/3 Ml) 3 ml NEB ONETIME ONE Stop: 04/17/19 00:15 Last Admin: 04/17/19 00:23 Dose: 3 ml Apixaban (Eliquis) 5 mg PO BID ON LICENSE OF [facility] Last Admin: 04/19/19 20:44 Dose: 5 mg Azithromycin (Zithromax) 500 mg PO ONETIME ONE Stop: 04/17/19 01:16 Last Admin: 04/17/19 01:23 Dose: 500 mg Hydromorphone HCl (Dilaudid) 1 mg IVPUSH ONETIME ONE Stop: 04/17/19 00:15 Last Admin: 04/17/19 00:23 Dose: 1 mg Ceftriaxone Sodium/Dextrose 2 (gm/ Premix) 50 mls @ 100 mls/hr IV ONETIME ONE Stop: 04/17/19 01:44 Last Admin: 04/17/19 01:23 Dose: 100 mls/hr Levofloxacin/Dextrose 750 mg/ (Premix) 150 mls @ 100 mls/hr IV ONETIME ONE Stop: 04/17/19 12:48 Last Admin: 04/17/19 11:46 Dose: 100 mls/hr Levofloxacin/Dextrose 750 mg/ (Premix) 150 mls @ 100 mls/hr IV Q24H ON LICENSE OF [facility] Last Admin: 04/17/19 15:25 Dose: Not Given Ketorolac Tromethamine (Toradol) 30 mg IVPUSH ONETIME ONE Stop: 04/17/19 12:39 Last Admin: 04/17/19 13:00 Dose: 30 mg Oxycodone HCl (Oxycodone) 5 mg PO Q6H PRN PRN Reason: pain Last Admin: 04/17/19 09:37 Dose: 5 mg Oxycodone HCl (Oxycodone) 5 mg PO Q6H PRN PRN Reason: Pain Sodium Chloride (Saline Flush) 10 ml FLUSH ASDIRECTED PRN PRN Reason: Keep Vein Open Sodium Chloride (Saline Flush) 2.5 ml FLUSH ASDIRECTED PRN PRN Reason: Keep Vein Open <Yoandy Conte - Last Filed: 04/20/19 18:47> Discharge Summary - Referral to Home Health Primary Care Physician: PCP None - Patient Data Vitals - Most Recent: Last Vital Signs Temp 36.3 C 04/20/19 12:00 Pulse 81 04/20/19 12:00 Resp 18 04/20/19 12:00 BP 133/60 04/20/19 12:00 Pulse Ox 92 L 04/20/19 12:00 I&O - Last 24 hours: Intake & Output 04/20/19 04/20/19 04/20/19 06:59 14:59 22:59 Intake Total 1360 1470 Output Total 775 300 Balance 585 1170 Lab Results - Last 24 hrs: Laboratory Results - last 24 hr 04/20/19 04/20/19 Range/Units 06:15 06:15 WBC 7.02 (4.0-11.0) K/uL RBC 2.52 L (4.50-5.90) M/uL Hgb 8.1 L (13.0-17.0) g/dL Hct 25.4 L (38.0-50.0) % MCV 100.8 H (80.0-98.0) fL MCH 32.1 H (27.0-32.0) pg MCHC 31.9 (31.0-37.0) g/dL RDW Std Deviation 58.1 (28.0-62.0) fl RDW Coeff of Christiano 16 H (11.0-15.0) % Plt Count 170 (150-400) K/uL MPV 8.80 (7.40-12.00) fL Add Manual Diff YES Neutrophils % (Manual) 63 (48.0-80.0) % Band Neutrophils % 2 % Lymphocytes % (Manual) 25 (16.0-40.0) % Monocytes % (Manual) 8 (0.0-15.0) % Eosinophils % (Manual) 1 (0.0-7.0) % Basophils % (Manual) 1 (0.0-1.5) % Nucleated RBC % 0.0 /100WBC Absolute Seg Neuts 4.4 (1.4-5.7) Band Neutrophils # 0.1 Lymphocytes # (Manual) 1.8 (0.6-2.4) Monocytes # (Manual) 0.6 (0.0-0.8) Eosinophils # (Manual) 0.1 (0.0-0.7) Basophils # (Manual) 0.1 (0.0-0.1) Nucleated RBCs # 0 K/uL Sodium 141 (136-148) mmol/L Potassium 4.0 (3.5-5.1) mmol/L Chloride 105 (98-107) mmol/L Carbon Dioxide 25.1 (21.0-32.0) mmol/L BUN 16 (7.0-18.0) mg/dL Creatinine 1.1 (0.8-1.3) mg/dL Est Cr Clr Drug Dosing 89.62 mL/min Estimated GFR (MDRD) > 60.0 ml/min Glucose 93 (74-106) mg/dL Calcium 8.7 (8.5-10.1) mg/dL Total Bilirubin 0.6 (0.2-1.0) mg/dL AST 56 H (15-37) IU/L ALT 69 H (14-63) IU/L Alkaline Phosphatase 179 H (46-116) U/L Total Protein 6.9 (6.4-8.2) g/dL Albumin 2.1 L (3.4-5.0) g/dL Globulin 4.8 H (2.6-4.0) g/dL Albumin/Globulin Ratio 0.4 L (0.9-1.6) MELINDA Results - Last 24 hrs: Microbiology 04/17/19 22:28 Gram Stain - Final Sputum - Expectorated Sputum Culture - Final Normal Respiratory Jazmin 04/17/19 01:19 Aerobic Blood Culture - Final Blood - Venous - Lab Draw Streptococcus Pneumoniae Anaerobic Blood Culture - Final 04/17/19 01:09 Aerobic Blood Culture - Final Blood - Venous Streptococcus Pneumoniae Anaerobic Blood Culture - Final Streptococcus Pneumoniae Med Orders - Current: Current Medications Discontinued Medications Acyclovir (Zovirax) 400 mg PO BID SIMONA Last Admin: 04/20/19 08:49 Dose: 400 mg Albuterol/Ipratropium (Duoneb 3.0-0.5 Mg/3 Ml) 3 ml NEB ONETIME ONE Stop: 04/17/19 00:15 Last Admin: 04/17/19 00:23 Dose: 3 ml Albuterol/Ipratropium (Duoneb 3.0-0.5 Mg/3 Ml) 3 ml NEB QID PRN PRN Reason: Shortness of Breath Last Admin: 04/18/19 07:48 Dose: 3 ml Albuterol/Ipratropium (Duoneb 3.0-0.5 Mg/3 Ml) 3 ml NEB Q6HRRT ON LICENSE OF [facility] Last Admin: 04/20/19 11:17 Dose: 3 ml Apixaban (Eliquis) 5 mg PO BID ON LICENSE OF [facility] Last Admin: 04/19/19 20:44 Dose: 5 mg Apixaban (Eliquis) 5 mg PO BID ON LICENSE OF [facility] Last Admin: 04/20/19 08:49 Dose: 5 mg Azithromycin (Zithromax) 500 mg PO ONETIME ONE Stop: 04/17/19 01:16 Last Admin: 04/17/19 01:23 Dose: 500 mg Cyanocobalamin (Vitamin B12) 500 mcg PO DAILY ON LICENSE OF [facility] Last Admin: 04/20/19 08:49 Dose: 500 mcg Folic Acid (Folic Acid) 1 mg PO DAILY ON LICENSE OF [facility] Last Admin: 04/20/19 08:49 Dose: 1 mg Gabapentin (Neurontin) 800 mg PO BID ON LICENSE OF [facility] Last Admin: 04/20/19 08:49 Dose: 800 mg Hydromorphone HCl (Dilaudid) 1 mg IVPUSH ONETIME ONE Stop: 04/17/19 00:15 Last Admin: 04/17/19 00:23 Dose: 1 mg Ceftriaxone Sodium/Dextrose 2 (gm/ Premix) 50 mls @ 100 mls/hr IV ONETIME ONE Stop: 04/17/19 01:44 Last Admin: 04/17/19 01:23 Dose: 100 mls/hr Levofloxacin/Dextrose 750 mg/ (Premix) 150 mls @ 100 mls/hr IV ONETIME ONE Stop: 04/17/19 12:48 Last Admin: 04/17/19 11:46 Dose: 100 mls/hr Levofloxacin/Dextrose 750 mg/ (Premix) 150 mls @ 100 mls/hr IV Q24H ON LICENSE OF [facility] Last Admin: 04/17/19 15:25 Dose: Not Given Piperacillin Sod/Tazobactam (Sod 4.5 gm/ Sodium Chloride) 100 mls @ 100 mls/hr IV Q8H ON LICENSE OF [facility] Last Admin: 04/20/19 08:49 Dose: 100 mls/hr Vancomycin HCl 1.5 gm/ Premix 300 mls @ 200 mls/hr IV Q8H ON LICENSE OF [facility] Last Admin: 04/20/19 06:33 Dose: 200 mls/hr Levofloxacin/Dextrose 750 mg/ (Premix) 150 mls @ 100 mls/hr IV Q24H ON LICENSE OF [facility] Last Admin: 04/20/19 12:09 Dose: 100 mls/hr Ketorolac Tromethamine (Toradol) 30 mg IVPUSH ONETIME ONE Stop: 04/17/19 12:39 Last Admin: 04/17/19 13:00 Dose: 30 mg Lidocaine (Lidoderm 5%) 700 mg TOP Q24H ON LICENSE OF [facility] Last Admin: 04/19/19 17:56 Dose: 700 mg Lorazepam (Ativan) 1 mg PO BEDTIME PRN PRN Reason: Sleep Omeprazole (Omeprazole) 20 mg PO ACBREAKFAST PRN PRN Reason: Heartburn Oxycodone HCl (Oxycodone) 5 mg PO Q6H PRN PRN Reason: pain Last Admin: 04/17/19 09:37 Dose: 5 mg Oxycodone HCl (Oxycodone) 5 mg PO Q6H PRN PRN Reason: Pain Oxycodone HCl (Oxycodone) 10 mg PO Q4H PRN PRN Reason: Pain Last Admin: 04/18/19 20:39 Dose: 10 mg Pantoprazole Sodium (Protonix) 40 mg PO DAILY ON LICENSE OF [facility] Last Admin: 04/20/19 08:49 Dose: 40 mg Prednisone (Prednisone) 40 mg PO WITHBREAKFAST ON LICENSE OF [facility] Last Admin: 04/20/19 08:49 Dose: 40 mg Sodium Chloride (Saline Flush) 10 ml FLUSH ASDIRECTED PRN PRN Reason: Keep Vein Open Last Admin: 04/17/19 00:23 Dose: 10 ml Sodium Chloride (Saline Flush) 2.5 ml FLUSH ASDIRECTED PRN PRN Reason: Keep Vein Open Last Admin: 04/17/19 00:23 Dose: 2.5 ml Sodium Chloride (Saline Flush) 10 ml FLUSH ASDIRECTED PRN PRN Reason: Keep Vein Open Sodium Chloride (Saline Flush) 2.5 ml FLUSH ASDIRECTED PRN PRN Reason: Keep Vein Open Vancomycin HCl (Pharmacy To Dose - Vancomycin) 1 dose .XX ASDIRECTED SIMONA - Free Text/Narrative Note: I have seen and evaluated the patient with the resident. I have discussed findings and treatment plan with the resident. I agree with the assessment and plan outlined in the following note.
== END 2019-04-20 14:30 | disposition home or self-care (01) | DRG 193 ==
LOC: MW.ED 00:03 → MW.MS 01:16 → OBSVTOIN 11:17 → MW.MS 14:45
PROVIDERS: ADMIT Internal Medicine; ATTEND Internal Medicine
PROC: 5A09357 Assistance with Respiratory Ventilation, Less than 24 Consecutive Hours, Continuous Positive Airway Pressure (ICD-10-PCS; principal; 2019-04-17)
DX: J15.4 Pneumonia due to other streptococci (principal); J96.01 Acute respiratory failure with hypoxia; C90.00 Multiple myeloma not having achieved remission; J90 Pleural effusion, not elsewhere classified; C34.90 Malignant neoplasm of unspecified part of unspecified bronchus or lung; Z68.41 Body mass index [BMI] 40.0-44.9, adult; R78.81 Bacteremia; J84.10 Pulmonary fibrosis, unspecified; E78.00 Pure hypercholesterolemia, unspecified; E66.9 Obesity, unspecified; G62.9 Polyneuropathy, unspecified; J70.0 Acute pulmonary manifestations due to radiation; I50.9 Heart failure, unspecified; M19.90 Unspecified osteoarthritis, unspecified site; I11.0 Hypertensive heart disease with heart failure; D53.9 Nutritional anemia, unspecified; R73.9 Hyperglycemia, unspecified; G89.29 Other chronic pain; Z79.01 Long term (current) use of anticoagulants; Z88.2 Allergy status to sulfonamides; Z87.891 Personal history of nicotine dependence; Z86.718 Personal history of other venous thrombosis and embolism; Z86.711 Personal history of pulmonary embolism; Z79.899 Other long term (current) drug therapy; Z94.9 Transplanted organ and tissue status, unspecified
CPT/HCPCS: 36415; 71046; 71046-26; 80048; 80053; 80202; 82272; 83605; 83690; 84484; 85025; 85610; 87040; 87070; 87077; 87186; 87205; 93005; 94640; 96365; 96375; 99284; 99285-25; A9270-GY; J0696; J1170; J1885; J1956; J2543; J3370; J7030; J7620-GY